=== PATIENT | male | born 1960 | race Caucasian/White ===

== ENCOUNTER → 2016-11-21 | Outpatient (CLI) | payer MEDICARE, MEDICAID | LOC: GMAB 14:42 | PROVIDERS: ATTEND Family Medicine | DX: I10 Essential (primary) hypertension (principal); Z12.5 Encounter for screening for malignant neoplasm of prostate | CPT/HCPCS: 84443; G0103 ==

== ENCOUNTER → 2016-12-20 | Outpatient (CLI) | payer MEDICARE, MEDICAID ==
--- NOTE | 2016-12-20 10:03 | MRI ---
EXAM DESCRIPTION: MR LUMBAR SPINE WITHOUT IV CONTRAST CLINICAL HISTORY: LUMBAR RADICULOPATHY low back and right leg pain post a fall, multiple spine surgeries COMPARISON: 25 April 2016. TECHNIQUE: Multi plantar multi sequence non contrast imaging. FINDINGS: Prior pedicle screw and interbody fusion is observed at the L5-S1 level. Exam reveals an old compression fracture the L1 vertebral body. No extra spinous abnormality is detected. L1-2: The disc is desiccated. A central 1.6 mm disc bulge is observed. No neural foraminal disease is noted. L2-3: Unremarkable. L3-4: Unremarkable. L4-5: The disc is desiccated. A left-sided 4.7 mm disc protrusion is detected. No neural foraminal disease of significance is detected. L5-S1: Pedicle screw and interbody fusion are observed at this level. No evidence of loosening or infection is observed. Exam does reveal some medial placement of the right pedicle screw. This remains unchanged from the prior exam. IMPRESSION: 1. An old compression injury of L1 is observed. 2. A 4.7 mm left-sided disk protrusion is detected at the L4-5 level. 3. Pedicle screw and interbody fusion is observed at the L5-S1 level without evidence of loosening or infection. There is medial placement of the right-sided pedicle screw Electronically signed by: Moiz Jane MD 12/20/2016 10:01
== END | disposition home or self-care (01) ==
LOC: MRI 07:32
PROVIDERS: ATTEND Family Medicine
DX: E11.9 Type 2 diabetes mellitus without complications (principal); M54.16 Radiculopathy, lumbar region

== ENCOUNTER 2017-03-17 07:48 | Emergency (ER) | payer MEDICARE, MEDICAID ==
--- NOTE | 2017-03-17 08:35 | ED.PDOC ---
History of Present Illness - General Chief Complaint: ENT Problem Stated Complaint: sinus infection Time Seen by Provider: 03/17/17 07:56 Source: patient, RN notes reviewed, Vital Signs reviewed Exam Limitations: no limitations - History of Present Illness Initial Comments: Patient reports sinus pressure and congestion for 8-10 days that is not getting better with OTC sinus medications. No fever or chills. + nasal drainage. No cough or sore throat. Timing/Duration: gradual, other - 8-10 days Severity: moderate EENT Location: nose, other - sinus Prearrival Treatment: over the counter meds - without improvement Improving Factors: nothing Worsening Factors: nothing Associated Symptoms: facial pain/swelling, nasal congestion/drainage, sinus infection Allergies/Adverse Reactions: Allergies NO KNOWN ALLERGY Allergy (Verified 03/17/17 08:31) Home Medications: Ambulatory Orders Metformin HCl 1,000 mg PO BID 03/25/14 Oxcarbazepine [Trileptal] 600 mg PO BID 03/25/14 Primidone 500 mg PO BID 03/25/14 Risperidone 1 mg PO BID 03/25/14 ALPRAZolam [Xanax] 0.12 mg PO BEDTIME 05/14/14 Duloxetine HCl 60 mg PO DAILY 05/14/14 Lisinopril/Hydrochlorothi 20-12.5 mg 20 mg PO DAILY 05/14/14 Ropinirole 1 mg PO BEDTIME PRN 05/14/14 Prednisone 20 mg PO DAILY #30 tab 05/16/14 amLODIPine BESYLATE [Norvasc] 10 mg PO DAILY #30 tab 05/16/14 cloNAZepam [Klonopin] 1 mg PO BEDTIME #15 tab 05/16/14 Acetaminophen W/ Codeine [Tylenol W/ CODEINE #3] 1 ea PO Q6H #30 08/22/15 Cyclobenzaprine HCl [Flexeril] 10 mg PO Q8H #30 tab 08/22/15 predniSONE [Prednisone] 20 mg PO QAM #5 tab 08/22/15 Acetaminophen W/ Codeine [Tylenol W/ CODEINE #3] 1 - 2 ea PO Q4H PRN #20 Ibuprofen [Motrin Tab] 600 mg PO TID PRN #15 tab 02/24/16 Acetaminophen W/ Codeine [Tylenol W/ CODEINE #3] 1 ea PO Q6H PRN #20 05/13/16 Review of Systems - Review of Systems Constitutional: States: no symptoms reported. Denies: chills, fever, malaise, weakness EENTM: States: nose congestion, other - Sinus pain/pressure Respiratory: States: no symptoms reported Cardiology: States: no symptoms reported Gastrointestinal/Abdominal: States: no symptoms reported Musculoskeletal: States: no symptoms reported Skin: States: no symptoms reported All other Systems: No Change from Baseline Past Medical History (General) - Patient Medical History Hx Seizures: Yes Hx Stroke: No Hx Dementia: No Hx Asthma: No Hx of COPD: No Hx Cardiac Disorders: No Hx Congestive Heart Failure: No Hx Pacemaker: No Hx Hypertension: Yes Hx Thyroid Disease: No Hx Diabetes: Yes Hx Gastroesophageal Reflux: No Hx Renal Disease: No Hx Cancer: No Hx of HIV: No Hx Hepatitis C: No Hx MRSA: No - Vaccination History Hx Tetanus, Diphtheria Vaccination: Yes Hx Influenza Vaccination: Yes Hx Pneumococcal Vaccination: Yes Immunizations Up to Date: Yes - Social History Hx Tobacco Use: Yes Hx Chewing Tobacco Use: No Hx Alcohol Use: Yes Hx Substance Use: No Hx Substance Use Treatment: No Hx Depression: No Feels Threatened In Home Enviroment: No Feels Threatened In a Relationship: No Hx Physical Abuse: No Hx Emotional Abuse: No Hx Suspected Abuse: No - Female History Patient is a Female of Child Bearing Age (10 -59 yrs old): No Patient : No Family Medical History - Family History Father Family History: Unknown Living Status: Hx Family Asthma: No Hx Family Congestive Heart Failure: No Hx Family Hypertension: No Hx Family Stroke: No Hx Family Diabetes: No Hx Family Cancer: No Hx Family;Other: alch hx Physical Exam - Physical Exam General Appearance: Alert, Comfortable, No apparent distress, Unkempt, Well Developed, Well Hydrated, Well Nourished Eye Exam: bilateral normal Ear Exam: bilateral ear: auricle normal, canal normal, TM normal Nasal Exam: discharge, sinus tenderness Throat Exam: normal mouth inspection, pharynx normal, other - dentures Neck: non-tender, full range of motion, supple, normal inspection Cardiovascular/Respiratory: regular rate, rhythm, no M/R/G, normal breath sounds , no respiratory distress Neurologic: alert, normal mood/affect, oriented x 3 Skin Exam: normal color, warm/dry Progress - Progress Progress: 03/17/17 08:37 Patient requests antibiotic shot due to not being able to afford Rx. Will give Solumedrol and Rocephin Departure - Departure Clinical Impression: Acute maxillary sinusitis Qualifiers: Recurrence: not specified Qualified Code(s): J01.00 - Acute maxillary sinusitis , unspecified Time of Disposition: 08:38 Disposition: Discharge to Home or Self Care Condition: Good Departure Forms: ED Discharge - Pt. Copy, Patient Portal Self Enrollment Instructions: DI for Sinusitis Diet: resume usual diet Activity: increase activity as tolerated Referrals: Fatmata Umaña DO [Primary Care Provider] - 1-2 Weeks Home Medications: Ambulatory Orders Metformin HCl 1,000 mg PO BID 03/25/14 Oxcarbazepine [Trileptal] 600 mg PO BID 03/25/14 Primidone 500 mg PO BID 03/25/14 Risperidone 1 mg PO BID 03/25/14 ALPRAZolam [Xanax] 0.12 mg PO BEDTIME 05/14/14 Duloxetine HCl 60 mg PO DAILY 05/14/14 Lisinopril/Hydrochlorothi 20-12.5 mg 20 mg PO DAILY 05/14/14 Ropinirole 1 mg PO BEDTIME PRN 05/14/14 Prednisone 20 mg PO DAILY #30 tab 05/16/14 amLODIPine BESYLATE [Norvasc] 10 mg PO DAILY #30 tab 05/16/14 cloNAZepam [Klonopin] 1 mg PO BEDTIME #15 tab 05/16/14 Acetaminophen W/ Codeine [Tylenol W/ CODEINE #3] 1 ea PO Q6H #30 08/22/15 Cyclobenzaprine HCl [Flexeril] 10 mg PO Q8H #30 tab 08/22/15 predniSONE [Prednisone] 20 mg PO QAM #5 tab 08/22/15 Acetaminophen W/ Codeine [Tylenol W/ CODEINE #3] 1 - 2 ea PO Q4H PRN #20 Ibuprofen [Motrin Tab] 600 mg PO TID PRN #15 tab 02/24/16 Acetaminophen W/ Codeine [Tylenol W/ CODEINE #3] 1 ea PO Q6H PRN #20 05/13/16
[2017-03-17] MEDS: cefTRIAXone SODIUM 1 GM VIAL IM ONE (08:38)
[2017-03-17] MEDS ORDERED: LIDOCAINE 1% 10 ML VIAL INJ ONE (08:38)
[2017-03-17] MEDS: methylPREDNISolone SODIUM SUC 125 MG/2 ML VIAL IM ONE (08:39)
[2017-03-17 08:55] VITALS: BP 143/85; TEMP 98.2; O2SAT 90
== END 2017-03-17 08:59 | disposition home or self-care (01) ==
LOC: ER 07:48
DX: J01.00 Acute maxillary sinusitis, unspecified (principal); I10 Essential (primary) hypertension; E11.9 Type 2 diabetes mellitus without complications; Z79.899 Other long term (current) drug therapy; Z87.891 Personal history of nicotine dependence
CPT/HCPCS: J0696; J2930

== ENCOUNTER 2017-03-20 18:15 | Emergency (ER) | payer MEDICARE, MEDICAID ==
--- NOTE | 2017-03-20 18:50 | RAD ---
PROCEDURE: XR CHEST 1 VIEW HISTORY: sob COMPARISON: 02/24/2016 TECHNIQUE: Single projection of the chest was done. FINDINGS: The lung mcclure are well inflated . There are no discrete airspace infiltrates, pneumothoraces or pleural effusions. The pulmonary vascularity is normal. The cardiomediastinal silhouette is unremarkable for patient's age and sex. IMPRESSION: There is no acute pleural-parenchymal process seen in the imaged lung mcclure. Location of Interpretation: [facility] Electronically signed by: Zhen Ellsworth MD 03/20/2017 6:50 PM CDT
--- NOTE | 2017-03-20 19:04 | ED.PDOC ---
History of Present Illness - General Chief Complaint: Respiratory Problem Stated Complaint: trouble breathing Time Seen by Provider: 03/20/17 18:21 Source: patient, RN notes reviewed, Vital Signs reviewed, EMS notes reviewed Exam Limitations: no limitations - History of Present Illness Initial Comments: Mik Pérez 56 y/o male with copd,hbp,dm2 stated that he had cough with worsening sob for the last 2 weeks,no chest pains, no exertional dyspnea,no fever,no chills.He continue to smoke 1 1/2 ppd.He stated was seen here last week given steroid pill tapering dose but not any better. Timing/Duration: getting worse, other - 2 weeks Severity: moderate Possible Cause: chronic episodes Improving Factors: nothing Associated Symptoms: cough - productive, nasal congestion Allergies/Adverse Reactions: Allergies NO KNOWN ALLERGY Allergy (Verified 03/17/17 08:31) Home Medications: Ambulatory Orders Metformin HCl 1,000 mg PO BID 03/25/14 Oxcarbazepine [Trileptal] 600 mg PO BID 03/25/14 Primidone 500 mg PO BID 03/25/14 Risperidone 1 mg PO BID 03/25/14 ALPRAZolam [Xanax] 0.12 mg PO BEDTIME 05/14/14 Duloxetine HCl 60 mg PO DAILY 05/14/14 Lisinopril/Hydrochlorothi 20-12.5 mg 20 mg PO DAILY 05/14/14 Ropinirole 1 mg PO BEDTIME PRN 05/14/14 Prednisone 20 mg PO DAILY #30 tab 05/16/14 amLODIPine BESYLATE [Norvasc] 10 mg PO DAILY #30 tab 05/16/14 cloNAZepam [Klonopin] 1 mg PO BEDTIME #15 tab 05/16/14 Acetaminophen W/ Codeine [Tylenol W/ CODEINE #3] 1 ea PO Q6H #30 08/22/15 Cyclobenzaprine HCl [Flexeril] 10 mg PO Q8H #30 tab 08/22/15 predniSONE [Prednisone] 20 mg PO QAM #5 tab 08/22/15 Acetaminophen W/ Codeine [Tylenol W/ CODEINE #3] 1 - 2 ea PO Q4H PRN #20 Ibuprofen [Motrin Tab] 600 mg PO TID PRN #15 tab 02/24/16 Acetaminophen W/ Codeine [Tylenol W/ CODEINE #3] 1 ea PO Q6H PRN #20 05/13/16 Amoxicillin [Amoxil] 1,000 mg PO BID #30 cap 03/20/17 Oxymetazoline HCl [Afrin 12 Hour] 0.05 % NA BID PRN #1 spr 03/20/17 Review of Systems - Review of Systems Constitutional: States: no symptoms reported EENTM: States: no symptoms reported Respiratory: States: see HPI, cough, short of breath Cardiology: States: no symptoms reported Gastrointestinal/Abdominal: States: no symptoms reported Genitourinary: States: no symptoms reported Musculoskeletal: States: other - right leg pain on exertion Skin: States: no symptoms reported Neurological: States: no symptoms reported Endocrine: States: no symptoms reported Hematologic/Lymphatic: States: no symptoms reported Past Medical History (General) - Patient Medical History Hx Seizures: Yes Hx Stroke: No Hx Dementia: No Hx Asthma: No Hx of COPD: No Hx Cardiac Disorders: No Hx Congestive Heart Failure: No Hx Pacemaker: No Hx Hypertension: Yes Hx Thyroid Disease: No Hx Diabetes: Yes Hx Gastroesophageal Reflux: No Hx Renal Disease: No Hx Cancer: No Hx of HIV: No Hx Hepatitis C: No Hx MRSA: No Hx Other PMH: Yes - bipolar disorder-[facility]es [facility] Surgical History: other - ventral hernia repair,knee,back - Vaccination History Hx Tetanus, Diphtheria Vaccination: Yes Hx Influenza Vaccination: No Hx Pneumococcal Vaccination: No - Social History Hx Tobacco Use: Yes Years Tobacco Use: 44 Cigarettes Packs Per Day: 30 Hx Chewing Tobacco Use: No Hx Alcohol Use: Yes Hx Substance Use: No Hx Substance Use Treatment: No Hx Depression: No Hx Physical Abuse: No Hx Emotional Abuse: No Hx Suspected Abuse: No - Activities of Daily Living Grooming Ability: Independent Eating (Feeding) Ability: Independent Toileting Ability: Independent - Female History Patient : No Family Medical History - Family History Father Family History: Unknown Living Status: Hx Family Asthma: No Hx Family Congestive Heart Failure: No Hx Family Hypertension: No Hx Family Stroke: No Hx Family Diabetes: No Hx Family Cancer: Yes - melanoma -dad Hx Family;Other: alch hx Physical Exam - Physical Exam General Appearance: Alert, Anxious, No apparent distress ENT Exam: normal ENT inspection, hearing grossly normal, TMs normal, pharynx normal Neck: non-tender, full range of motion, supple, normal inspection Respiratory: chest non-tender, no respiratory distress, rhonchi Cardiovascular/Chest: normal peripheral pulses, regular rate, rhythm, no edema, no gallop, no JVD, no murmur Gastrointestinal/Abdominal: normal bowel sounds, non tender, soft, no organomegaly, no pulsatile mass Extremity: normal range of motion, non-tender Neurologic: no motor/sensory deficits, alert Skin Exam: normal color, warm/dry Lymphatic: no adenopathy Progress - Results/Orders Results/Orders: 03/20/17 18:56 SVN/[facility] .ONCE 03/21/17 09:00 [facility] Daily Laboratory Results WBC 12.0 K/mm3 (4.8-10.8) H 03/20/17 18:40 RBC 4.62 M/mm3 (4.70-6.10) L 03/20/17 18:40 Hgb 13.4 gm/dL (14.0-18.0) L 03/20/17 18:40 Hct 39.9 % (42.0-52.0) L 03/20/17 18:40 MCV 86.4 fl (80.0-94.0) 03/20/17 18:40 MCH 29.0 pg (27.0-31.0) 03/20/17 18:40 MCHC 33.7 g/dL (33.0-37.0) 03/20/17 18:40 RDW 13.3 % (11.5-14.5) 03/20/17 18:40 Plt Count 301 K/mm3 (130-400) 03/20/17 18:40 MPV 7.2 fl (7.40-10.4) L 03/20/17 18:40 Absolute Neuts (auto) 8.10 K/uL (1.8-6.8) H 03/20/17 18:40 Absolute Lymphs (auto) 2.60 K/uL (1.0-3.4) 03/20/17 18:40 Absolute Monos (auto) 0.90 K/uL (0.2-0.8) H 03/20/17 18:40 Absolute Eos (auto) 0.30 K/uL (0.0-0.4) 03/20/17 18:40 Absolute Basos (auto) 0.20 K/uL (0.0-0.1) H 03/20/17 18:40 Neutrophils % 67.1 % (42.0-78.0) 03/20/17 18:40 Lymphocytes % 21.7 % (20.0-50.0) 03/20/17 18:40 Monocytes % 7.4 % (2.0-9.0) 03/20/17 18:40 Eosinophils % 2.5 % (1.0-5.0) 03/20/17 18:40 Basophils % 1.3 % (0.0-2.0) 03/20/17 18:40 D-Dimer, Quantitative < 200 ng/mL (0-230) 03/20/17 18:40 Sodium 122 mmol/L (135-145) L 03/20/17 18:40 Potassium 4.3 mmol/L (3.6-5.0) 03/20/17 18:40 Chloride 88 mmol/L (101-111) L 03/20/17 18:40 Carbon Dioxide 27 mmol/L (21-31) 03/20/17 18:40 Anion Gap 11.3 (12-18) L 03/20/17 18:40 BUN 12 mg/dL (7-18) 03/20/17 18:40 Creatinine 0.84 mg/dL (0.6-1.3) 03/20/17 18:40 BUN/Creatinine Ratio 14.3 (10-20) 03/20/17 18:40 Random Glucose 90 mg/dL (70-105) 03/20/17 18:40 Serum Osmolality 245.2 mOsm/L (275-295) L* 03/20/17 18:40 Calcium 8.9 mg/dL (8.4-10.2) 03/20/17 18:40 Total Bilirubin 0.4 mg/dL (0.2-1.0) 03/20/17 18:40 AST 24 IU/L (10-42) 03/20/17 18:40 ALT 19 IU/L (10-60) 03/20/17 18:40 Alkaline Phosphatase 75 IU/L (42-121) 03/20/17 18:40 Creatine Kinase 275 IU/L (38-174) H* 03/20/17 18:40 CK-MB (CK-2) 9.7 ng/mL (0.0-4.4) H* 03/20/17 18:40 CK-MB (CK-2) % 3.53 % (0.0-3.5) H 03/20/17 18:40 Troponin I < 0.02 ng/mL (0.01-0.05) 03/20/17 18:40 B-Natriuretic Peptide 10.1 pg/ml (0-100) 03/20/17 18:40 Serum Total Protein 6.9 gm/dL (6.4-8.2) 03/20/17 18:40 Albumin 4.0 g/dl (3.2-5.5) 03/20/17 18:40 Globulin 2.9 gm/dL (2.3-3.5) 03/20/17 18:40 Albumin/Globulin Ratio 1.4 (1.1-1.9) 03/20/17 18:40 Ethyl Alcohol 49.40 mg/dL (0-79) 03/20/17 18:40 Vital Signs - 8 hr 03/20/17 03/20/17 03/20/17 18:20 18:25 19:15 Temperature 97.9 F Pulse Rate 81 Pulse Rate [ 72 Left Brachial] Respiratory 20 20 20 Rate Blood Pressure 163/97 [Left Arm] O2 Sat by Pulse 97 97 Oximetry Counseled regarding his chronic smoking as well as alcohol that it will complicate his underlying medical problem stated he tried to quit in the past but could not withstand withdrawal symptoms but he is going to try again.I told him well give discharge instruction for nicotine and alcohol use chronically.Talked to him for about 3 minutes 2221 h called up hospitalist Susanne Kessler ANP for admit but recommended transfer to [facility] patient was informed about it declined to be transferred prefers to call up his md in am clinic in [place], [place] several family members present. - EKG/XRAY/CT EKG: Sinus, RBBB Comments: heart rate-82 XRAY: chest - no acute abnormalities as per radiologist Departure - Departure Clinical Impression: Hyponatremia with decreased serum osmolality, Bronchitis, chronic obstructive, with exacerbation, Alcohol abuse, daily use Nicotine dependence Qualifiers: Nicotine product type: cigarettes Substance use status: uncomplicated Qualified Code(s): F17.210 - Nicotine dependence, cigarettes, uncomplicated Time of Disposition: 22:23 Disposition: Discharge to Home or Self Care Condition: Fair Departure Forms: ED Discharge - Pt. Copy, Patient Portal Self Enrollment Instructions: Growing Up Sober: A Challenging Journey for Adult Children of Alcoholics, Smoking Cessation for Older Adults: It's Not Too Late!, Tips to Help You Stop Smoking, Alcohol Abuse and Alcoholism, Nicotine Addiction, Diabetes and Alcohol: Caution When Mixing, Reasons to Quit Smoking, How to Quit Smoking Diet: other - Tomato juice one cup am and pm Referrals: Fatmata Umaña DO [Primary Care Provider] - 1-2 Weeks Prescriptions: Amoxicillin [Amoxil] 1,000 mg PO BID #30 cap Oxymetazoline HCl [Afrin 12 Hour] 0.05 % NA BID PRN #1 spr PRN Reason: Nasal Congestion Home Medications: Ambulatory Orders Metformin HCl 1,000 mg PO BID 03/25/14 Oxcarbazepine [Trileptal] 600 mg PO BID 03/25/14 Primidone 500 mg PO BID 03/25/14 Risperidone 1 mg PO BID 03/25/14 ALPRAZolam [Xanax] 0.12 mg PO BEDTIME 05/14/14 Duloxetine HCl 60 mg PO DAILY 05/14/14 Lisinopril/Hydrochlorothi 20-12.5 mg 20 mg PO DAILY 05/14/14 Ropinirole 1 mg PO BEDTIME PRN 05/14/14 Prednisone 20 mg PO DAILY #30 tab 05/16/14 amLODIPine BESYLATE [Norvasc] 10 mg PO DAILY #30 tab 05/16/14 cloNAZepam [Klonopin] 1 mg PO BEDTIME #15 tab 05/16/14 Acetaminophen W/ Codeine [Tylenol W/ CODEINE #3] 1 ea PO Q6H #30 08/22/15 Cyclobenzaprine HCl [Flexeril] 10 mg PO Q8H #30 tab 08/22/15 predniSONE [Prednisone] 20 mg PO QAM #5 tab 08/22/15 Acetaminophen W/ Codeine [Tylenol W/ CODEINE #3] 1 - 2 ea PO Q4H PRN #20 Ibuprofen [Motrin Tab] 600 mg PO TID PRN #15 tab 02/24/16 Acetaminophen W/ Codeine [Tylenol W/ CODEINE #3] 1 ea PO Q6H PRN #20 05/13/16 Amoxicillin [Amoxil] 1,000 mg PO BID #30 cap 03/20/17 Oxymetazoline HCl [Afrin 12 Hour] 0.05 % NA BID PRN #1 spr 03/20/17 Additional Instructions: CONTINUE WITH ALBUTEROL INHALER 2 PUFFS EVERY 6 HOURS FOR WHEEZING; and prednisone as directed return to emergency room as needed
[2017-03-20] MEDS: IPRATROPIUM/ALBUTEROL 3 ML VIAL NEB ONE ×2 (19:15→20:11)
[2017-03-20] MEDS: methylPREDNISolone SODIUM SUC 125 MG/2 ML VIAL IV ONE (19:18)
[2017-03-20] MEDS: AMOXICILLIN 500 MG CAP PO ONE (22:36)
[2017-03-20] MEDS: diphenhydrAMINE HCL 25 MG CAP PO ONE (22:37)
[2017-03-20] MEDS: BENZONATATE PERLES 100 MG CAP PO ONE (22:37)
[2017-03-20] MEDS: HYDROcodone 7.5MG/APAP 325MG 1 EA TAB PO ONE ×2 (22:53→23:09)
[2017-03-20 23:11] VITALS: BP 174/105; TEMP 97.8
[2017-03-20 23:13] VITALS: O2SAT 97
== END 2017-03-20 23:13 | disposition home or self-care (01) ==
LOC: ER 18:15
DX: J44.1 Chronic obstructive pulmonary disease with (acute) exacerbation (principal); E87.1 Hypo-osmolality and hyponatremia; F10.10 Alcohol abuse, uncomplicated; Y90.2 Blood alcohol level of 40-59 mg/100 ml; F17.210 Nicotine dependence, cigarettes, uncomplicated; F31.9 Bipolar disorder, unspecified; E11.9 Type 2 diabetes mellitus without complications; I10 Essential (primary) hypertension; Z79.899 Other long term (current) drug therapy
CPT/HCPCS: 36415; 71010; 80053; 80320; 82550; 82553; 83880; 84484; 85025; 85379; 93005; 94640; J7620; Q0163

== ENCOUNTER 2017-04-07 21:16 | Inpatient (IN) | payer MEDICARE ==
[2017-04-07] MEDS ORDERED: IPRATROPIUM/ALBUTEROL 3 ML VIAL NEB ONE (21:25)
[2017-04-07] MEDS ORDERED: MULTIPLE VITAMIN INJ 10 ML, THIAMINE HCL INJ 100 MG in SODIUM CHLORIDE 0.9% 1000ML 1,00... IVS ONE (21:27)
[2017-04-07] MEDS ORDERED: MULTIPLE VITAMIN 10 ML VIAL ONE (21:34)
[2017-04-07] MEDS ORDERED: SODIUM CHLORIDE 0.9% 1000ML 1,000 ML ONE (21:34)
[2017-04-07] MEDS ORDERED: THIAMINE HCL INJ 100 MG/ML VIAL ONE (21:34)
[2017-04-07] MEDS ORDERED: cefTRIAXone SODIUM 1 GM in SODIUM CHL 0.9% 50ML MIN-BAG+ 50 ML IVPB ONE (22:33)
--- NOTE | 2017-04-07 22:44 | RAD ---
EXAM: Chest,2 Views CLINICAL INDICATION: 56-year-old male with shortness of breath. TECHNIQUE: Two-view, PA and lateral projections of the chest were obtained. COMPARISON: 01/18/2017. FINDINGS: Stable cardiac and mediastinal silhouette. Heart size is normal. Hazy opacification of the LEFT lower lobe raises the concern for consolidation. No pneumothorax or pleural effusions. The visualized bones are within normal limits. IMPRESSION: Hazy opacification of the LEFT lower lobe concerning for consolidation. Please correlate with patient clinical findings and follow-up for resolution. Electronically signed by: Marian Zayas MD 04/07/2017 10:44 PM CDT Workstation: [id number]
[2017-04-07] MEDS ORDERED: cefTRIAXone SODIUM 1 GM VIAL ONE (23:00)
[2017-04-07] MEDS ORDERED: SODIUM CHL 0.9% 50ML MIN-BAG+ 50 ML IVPB ONE (23:01)
[2017-04-07] MEDS ORDERED: SODIUM CHLORIDE 0.9% 500ML 500 ML IVS ONE (23:05)
[2017-04-07] MEDS ORDERED: SODIUM CHLORIDE 0.9% 500ML 500 ML ONE (23:07)
--- NOTE | 2017-04-07 23:25 | ED.PDOC ---
History of Present Illness - General Chief Complaint: Headache Stated Complaint: headache, neck pain, difficulty breathing Time Seen by Provider: 04/07/17 21:25 Source: patient Exam Limitations: no limitations - History of Present Illness Initial Comments: The patient is a 56-year-old male initially brought in by EMS due to headache and confusion. He was found to be hypoxic at 84% on room air. The patient apparently has had a progressively productive cough and shortness of breath for the last 2 days with associated weakness and body aches. The patient felt bad today so he took some extra pain medications and lay down outside on his porch on the hardwood deck and fell asleep. He apparently laid on the hard surface exposed to the heat for approximately 6 hours. The patient was mildly hypotensive upon arrival. He was tachycardic. As stated above, he did have a significant headache and was mildly confused. He has not had any chest pain. No palpitations. He does feel weak.temperature was also around 100.2 upon arrival. Timing/Duration: unsure Severity: severe Improving Factors: medication Worsening Factors: movement Associated Symptoms: cough, fever/chills, headaches, loss of appetite, malaise, shortness of breath, weakness Allergies/Adverse Reactions: Allergies NO KNOWN ALLERGY Allergy (Verified 04/07/17 23:19) Home Medications: Ambulatory Orders Metformin HCl 1,000 mg PO BID 03/25/14 Oxcarbazepine [Trileptal] 600 mg PO BID 03/25/14 Primidone 500 mg PO BID 03/25/14 Risperidone 1 mg PO BID 03/25/14 ALPRAZolam [Xanax] 0.12 mg PO BEDTIME 05/14/14 Duloxetine HCl 60 mg PO DAILY 05/14/14 Lisinopril/Hydrochlorothi 20-12.5 mg 20 mg PO DAILY 05/14/14 Ropinirole 1 mg PO BEDTIME PRN 05/14/14 Prednisone 20 mg PO DAILY #30 tab 05/16/14 amLODIPine BESYLATE [Norvasc] 10 mg PO DAILY #30 tab 05/16/14 cloNAZepam [Klonopin] 1 mg PO BEDTIME #15 tab 05/16/14 Acetaminophen W/ Codeine [Tylenol W/ CODEINE #3] 1 ea PO Q6H #30 08/22/15 Cyclobenzaprine HCl [Flexeril] 10 mg PO Q8H #30 tab 08/22/15 predniSONE [Prednisone] 20 mg PO QAM #5 tab 08/22/15 Acetaminophen W/ Codeine [Tylenol W/ CODEINE #3] 1 - 2 ea PO Q4H PRN #20 Ibuprofen [Motrin Tab] 600 mg PO TID PRN #15 tab 02/24/16 Acetaminophen W/ Codeine [Tylenol W/ CODEINE #3] 1 ea PO Q6H PRN #20 05/13/16 Amoxicillin [Amoxil] 1,000 mg PO BID #30 cap 03/20/17 Oxymetazoline HCl [Afrin 12 Hour] 0.05 % NA BID PRN #1 spr 03/20/17 Review of Systems - Review of Systems Constitutional: States: fever, malaise, weakness EENTM: States: no symptoms reported Respiratory: States: cough, short of breath Cardiology: States: no symptoms reported Gastrointestinal/Abdominal: States: other - mild anorexia Genitourinary: States: no symptoms reported Musculoskeletal: States: neck pain, other - eneralized body aches Skin: States: no symptoms reported Neurological: States: headache, tremors - a chronic problem, weakness, other - ild confusion Endocrine: States: increased thirst All other Systems: No Change from Baseline Past Medical History (General) - Patient Medical History Hx Seizures: Yes Hx Stroke: No Hx Dementia: No Hx Asthma: No Hx of COPD: No Hx Cardiac Disorders: No Hx Congestive Heart Failure: No Hx Pacemaker: No Hx Hypertension: Yes Hx Thyroid Disease: No Hx Diabetes: Yes Hx Gastroesophageal Reflux: No Hx Renal Disease: No Hx Cancer: No Hx of HIV: No Hx Hepatitis C: No Hx MRSA: No Surgical History: noncontributory - Vaccination History Hx Tetanus, Diphtheria Vaccination: No Hx Influenza Vaccination: Yes Hx Pneumococcal Vaccination: Yes Immunizations Up to Date: No - Social History Hx Tobacco Use: Yes Hx Chewing Tobacco Use: No Hx Alcohol Use: Yes Hx Substance Use: No Hx Substance Use Treatment: No Hx Depression: No Feels Threatened In Home Enviroment: No Feels Threatened In a Relationship: No Hx Physical Abuse: No Hx Emotional Abuse: No Hx Suspected Abuse: No - Female History Patient : No Family Medical History - Family History Father Family History: Unknown Living Status: Hx Family Asthma: No Hx Family Congestive Heart Failure: No Hx Family Hypertension: No Hx Family Stroke: No Hx Family Diabetes: No Hx Family Cancer: Yes - melanoma -dad Hx Family;Other: alch hx Physical Exam - Physical Exam General Appearance: Alert, Frail, Ill Appearing, Unkempt, Other - drowsy Eye Exam: bilateral normal - with the exception that bilateral pupilsare 2 mm and fixed Ears, Nose, Throat: hearing grossly normal, other - mucous membranes are dry. Poor dentition Neck: non-tender, full range of motion, supple Respiratory: chest non-tender, no respiratory distress, no accessory muscle use , rales - to the left lower lobe, rhonchi - scattered Cardiovascular/Chest: normal peripheral pulses, no edema, tachycardia Peripheral Pulses: radial,right: 2+, radial,left: 2+, dorsalis pedis,right: 2+, dorsalis pedis,left: 2+ Gastrointestinal/Abdominal: non tender, soft Rectal Exam: deferred Back Exam: normal inspection, no CVA tenderness, no vertebral tenderness Extremity: normal range of motion, no pedal edema, normal capillary refill, other - the patient has diffuse discomfort to palp throughout his lower extremities. I see no bruising Neurologic: alert - leepy, oriented x 3 Skin Exam: pallor Comments: Vital Signs - 24 hr 04/07/17 04/07/17 04/07/17 21:20 21:26 22:00 Temperature 100.1 F H Pulse Rate 102 H Pulse Rate [ 116 H 116 H monitor] Respiratory 20 20 20 Rate Blood Pressure 97/58 [Left Arm] O2 Sat by Pulse 93 L 92 L Oximetry Progress - Progress Progress: 04/07/17 23:29 the patient is a 56-year-old male brought in with significant dehydration, acute renal failure and rhabdomyolysis on top of what appears to be a new left lower lobe pneumonia with associated hypoxia and leukocytosis. The patient's initial headache, confusion, hypotension and tachycardia appeared to be resolving nicely after his first banana bag. Hypoxia persists. Blood cultures have been performed. He is receiving a dose of IV Rocephin. Troponin leak is appropriate given the background of rhabdomyolysis and acute renal failure, without associated chest pain or EKG changes. Muscle enzymes will increase further before they start to decline, given the timeframe of the events. The DuoNeb treatment did also seem to help. Admit for management of the above processes. The patient denies alcohol intake today. There is apparently a history of withdrawal in his past. - Results/Orders Results/Orders: Laboratory Tests 04/07/17 04/07/17 04/07/17 21:45 21:45 21:45 WBC 16.7 H RBC 4.84 Hgb 14.0 Hct 41.9 L MCV 86.6 MCH 28.9 MCHC 33.4 RDW 13.8 Plt Count 264 MPV 7.2 L Absolute Neuts (auto) 14.70 H Absolute Lymphs (auto) 0.80 L Absolute Monos (auto) 1.10 H Absolute Eos (auto) 0.10 Absolute Basos (auto) 0.10 Neutrophils % 87.8 H Lymphocytes % 4.7 L Monocytes % 6.7 Eosinophils % 0.4 L Basophils % 0.4 PT 11.4 INR 1.010 PTT (SP) 31.6 Sodium 132 L Potassium 4.5 Chloride 97 L Carbon Dioxide 25 Anion Gap 14.5 BUN 40 H Creatinine 2.70 H BUN/Creatinine Ratio 14.8 Random Glucose 182 H Serum Osmolality 278.9 Lactic Acid Calcium 9.1 Magnesium 1.7 L Total Bilirubin 0.5 AST 47 H ALT 30 Alkaline Phosphatase 81 Creatine Kinase 1263 H* CK-MB (CK-2) 31.2 H* CK-MB (CK-2) % 2.47 Troponin I 1.17 H* B-Natriuretic Peptide 95.1 Serum Total Protein 7.6 Albumin 4.1 Globulin 3.5 Albumin/Globulin Ratio 1.2 Amylase 71 Lipase 20 L Ethyl Alcohol 04/07/17 04/07/17 21:45 21:45 WBC RBC Hgb Hct MCV MCH MCHC RDW Plt Count MPV Absolute Neuts (auto) Absolute Lymphs (auto) Absolute Monos (auto) Absolute Eos (auto) Absolute Basos (auto) Neutrophils % Lymphocytes % Monocytes % Eosinophils % Basophils % PT INR PTT (SP) Sodium Potassium Chloride Carbon Dioxide Anion Gap BUN Creatinine BUN/Creatinine Ratio Random Glucose Serum Osmolality Lactic Acid 1.6 Calcium Magnesium Total Bilirubin AST ALT Alkaline Phosphatase Creatine Kinase CK-MB (CK-2) CK-MB (CK-2) % Troponin I B-Natriuretic Peptide Serum Total Protein Albumin Globulin Albumin/Globulin Ratio Amylase Lipase Ethyl Alcohol < 5.40 chest x-ray shows a left lower lung infiltrate. EKG shows right bundle branch block. Sinus tachycardia. Normal QT and FL intervals. No acute ST segment changes concerning for ischemia compared with EKG from earlier this month. Departure - Departure Clinical Impression: Delirium, Dehydration Pneumonia Qualifiers: Pneumonia type: due to unspecified organism Laterality: left Lung location: lower lobe of lung Qualified Code(s): J18.9 - Pneumonia, unspecified organism Acute renal failure Qualifiers: Acute renal failure type: unspecified Qualified Code(s): N17.9 - Acute kidney failure, unspecified Rhabdomyolysis Qualifiers: Rhabdomyolysis type: traumatic Encounter type: initial encounter Qualified Code (s): T79.6XXA - Traumatic ischemia of muscle, initial encounter Disposition: Admit Patient Referrals: Fatmata Umaña DO [Primary Care Provider] - 1-2 Weeks Home Medications: Ambulatory Orders Metformin HCl 1,000 mg PO BID 03/25/14 Oxcarbazepine [Trileptal] 600 mg PO BID 03/25/14 Primidone 500 mg PO BID 03/25/14 Risperidone 1 mg PO BID 03/25/14 ALPRAZolam [Xanax] 0.12 mg PO BEDTIME 05/14/14 Duloxetine HCl 60 mg PO DAILY 05/14/14 Lisinopril/Hydrochlorothi 20-12.5 mg 20 mg PO DAILY 05/14/14 Ropinirole 1 mg PO BEDTIME PRN 05/14/14 Prednisone 20 mg PO DAILY #30 tab 05/16/14 amLODIPine BESYLATE [Norvasc] 10 mg PO DAILY #30 tab 05/16/14 cloNAZepam [Klonopin] 1 mg PO BEDTIME #15 tab 05/16/14 Acetaminophen W/ Codeine [Tylenol W/ CODEINE #3] 1 ea PO Q6H #30 08/22/15 Cyclobenzaprine HCl [Flexeril] 10 mg PO Q8H #30 tab 08/22/15 predniSONE [Prednisone] 20 mg PO QAM #5 tab 08/22/15 Acetaminophen W/ Codeine [Tylenol W/ CODEINE #3] 1 - 2 ea PO Q4H PRN #20 Ibuprofen [Motrin Tab] 600 mg PO TID PRN #15 tab 02/24/16 Acetaminophen W/ Codeine [Tylenol W/ CODEINE #3] 1 ea PO Q6H PRN #20 05/13/16 Amoxicillin [Amoxil] 1,000 mg PO BID #30 cap 03/20/17 Oxymetazoline HCl [Afrin 12 Hour] 0.05 % NA BID PRN #1 spr 03/20/17 Decision To Admit - Decistion To Admit Decision to Admit Reason: Medical Nature Decision to Admit Date: 04/07/17 Decision to Admit Time: 23:38
--- NOTE | 2017-04-07 23:37 | HP ---
CHIEF COMPLAINT: Fever. HISTORY OF PRESENT ILLNESS: Mr. Pérez is a 56-year-old, disabled male who presented to the Emergency Room with a two day history of cough, malaise, and a one day history of low grade fevers. He is a poor historian and seems to be a little debilitated and confused tonight. Per the ER records, he felt poorly all day today and fell asleep outdoors, possibly on a hardwood deck. When he awoke around six hours later, he felt sick and called EMS. He was transported to the Emergency Room where he was found to be febrile, dehydrated and in early mild rhabdomyolysis. The patient was worked up and found to have an early right lower lobe pneumonia. I have been called for admission to the hospital. PAST MEDICAL HISTORY: 1. Type 2 diabetes. 2. Lumbar disc disease. 3. Depression. 4. Hypertension. PAST SURGICAL HISTORY: Unknown. CURRENT MEDICATIONS: 1. Metformin 1000 mg b.i.d. 2. Trileptal 600 mg b.i.d. 3. Primidone 500 mg b.i.d. 4. Risperdal 1 mg b.i.d. 5. Xanax 0.25 mg q.h.s. 6. Cymbalta 60 mg q.d. 7. Lisinopril/hydrochlorothiazide 20/12.5 mg q.d. 8. Ropinirole 1 mg q.h.s. 9. Prednisone 20 mg daily. 10. Amlodipine 10 mg daily. 11. Tylenol with codeine q.6h. p.r.n. 12. Flexeril q.8h. 13. Motrin 600 mg t.i.d. ALLERGIES: NO KNOWN DRUG ALLERGIES. FAMILY HISTORY: Noncontributory. SOCIAL HISTORY: The patient smokes at least one pack of cigarettes a day. He rarely drinks alcohol. There is no history of drug abuse. REVIEW OF SYSTEMS: CONSTITUTIONAL: Positive for subjective fevers, but no chills or rigors. HEENT: No sore throat. CARDIOVASCULAR: No chest pains. PULMONARY: Positive for cough, nonproductive. He denies hemoptysis. He denies wheezing. GASTROINTESTINAL: No abdominal pain, nausea, vomiting, diarrhea, melena or hematochezia. GENITOURINARY: No incontinence, dysuria or hematuria. NEUROLOGIC: He has had a headache, but it is mild to moderate in severity at the current time. No dizziness. He does feel generally weak, but has no focal weakness. His mental status appears to be below his perceived baseline. LYMPHATIC: No history of enlarged lymph node or easy bruising. PHYSICAL EXAMINATION: VITAL SIGNS: Temperature 100.1. Pulse 91. Right 20. Pulse oximetry 93% on 2 liters nasal cannula. GENERAL: The patient appears groggy. He is pleasant and interacts adequately with the examiner. HEENT: Mucous membranes are dry. NECK: Supple. No lymphadenopathy. CHEST: Diminished breath sounds in the left base, otherwise clear to auscultation. Specifically, there are no wheezes. CARDIOVASCULAR: Tachycardic, regular rhythm without murmur. ABDOMEN: Soft, nontender, nondistended. EXTREMITIES: No cyanosis, clubbing, or edema. SKIN: No rash. NEUROLOGIC: The patient is awake and somewhat alert, but he does appear a little groggy. I think it is because of the illness. I note that his blood alcohol level is very, very low, so he is not intoxicated. He does not appear to be overdosed on pain medicine either. He has no focal motor or sensory deficit. LABORATORY: White count 16.7. Hematocrit 41, platelet count 264. He does have a leftward shift. Sodium 132, potassium 4.5, chloride 97, carbon dioxide 25, BUN 40, creatinine 2.7, lactic acid 1.6, magnesium 1.7, AST 47, ALT 30, CPK 1,263, CK-MB index 2.47%. Troponin I 1.17. BNP 95. Blood alcohol level less than 5. Chest x-ray reveals a left lower lobe consolidation. ASSESSMENT: 1. Left lower lobe pneumonia. 2. Hypoxemia secondary to #1. 3. Acute rhabdomyolysis, secondary to #1. 4. Acute renal failure, secondary to above. 5. Probable chronic obstructive pulmonary disease without exacerbation. 6. Type 2 diabetes. 7. Chronic low back pain secondary to lumbar disc disease. 8. Depression. PLAN: The patient is quite ill and needs to be put in the hospital for IV fluids. His troponin I is high, but I think it is due to his chronic renal failure. He is in rhabdomyolysis with an elevated CPK with a very low cardiac index on that high CPK. There is no evidence of alcoholism or detox at this time. The patient denies having a history of regular, ongoing alcohol abuse. He needs IV fluids, IV antibiotics, and close observation. We will be watching his mental status very carefully as well. #[id number] [facility]ITALMaurice
[2017-04-08] MEDS ORDERED: SODIUM CHLORIDE 0.9% 1000ML 1,000 ML ONE (01:08)
[2017-04-08] MEDS ORDERED: SODIUM CHLORIDE 0.9% 1000ML 1,000 ML IVS PRN (01:26)
[2017-04-08] MEDS ORDERED: AZITHROMYCIN 250 MG TAB PO SCH ×2 (04:00→21:00)
--- NOTE | 2017-04-08 06:15 | RAD ---
EXAM DESCRIPTION: Chest,2 Views CLINICAL HISTORY: pneumonia COMPARISON: February 05, 2017 FINDINGS: Cardiac silhouette is within normal limits. Abnormal parenchymal opacity in the left lower lung compatible with an infectious process. This is unchanged compared with the prior exam. There is no acute osseous process visualized. IMPRESSION: Abnormal opacity in the left lower lung worrisome for an infectious process. Recommend follow-up to demonstrate resolution and exclude other etiologies. Electronically signed by: Juan Daniel MD 04/08/2017 6:16 AM CDT
[2017-04-08] MEDS ORDERED: levoFLOXacin 500 MG TAB PO ONE (07:06)
[2017-04-08] MEDS ORDERED: AZITHROMYCIN IV 500 MG in SODIUM CHLORIDE 0.9% 250ML 250 ML IVPB SCH ×2 (08:30→21:00)
--- NOTE | 2017-04-08 08:38 | PCM.CORE ---
Physician DVT/VTE - Nurse DVT Assessment & Total Each Risk Factor Represents 1 Point: Age 41-60 Each Risk Factor is 1 Point: Serious Lung disease (pnemonia <1month, COPD, emphysema,etc) DVT Assessment Score: 2 - 2 Moderate Risk Treatments: Early Ambulation *
[2017-04-08] MEDS ORDERED: DEXTROSE 50% 25 GM/50 ML SYG IV PRN (08:48)
[2017-04-08] MEDS ORDERED: GLUCAGON INJ 1 MG VIAL SUBCU PRN (08:48)
[2017-04-08] MEDS ORDERED: SODIUM CHLORIDE 0.9% (FLUSH) 10 ML SYG IV PRN (08:50)
[2017-04-08] MEDS ORDERED: cefTRIAXone SODIUM 1 GM in SODIUM CHL 0.9% 50ML MIN-BAG+ 50 ML IVPB SCH ×2 (09:00→23:00)
[2017-04-08] MEDS ORDERED: IV SET AND CAP CHANGE INJ INJ SCH (09:00)
[2017-04-08] MEDS: ENOXAPARIN SODIUM 40 MG/0.4 ML SYG SUBCU SCH (09:23)
[2017-04-08] MEDS: ALPRAZolam 0.25 MG TAB PO PRN ×2 (09:23→22:42)
--- NOTE | 2017-04-08 09:48 | PN ---
DATE: 04/08/17 SUBJECTIVE: Early this morning, Mr. Pérez got really agitated with having to be at the hospital. Apparently his mental status really cleared up and he became really anxious to get outside and smoke a cigarette and started demanding coffee around 4:30 this morning. The nurses called me a little after 5 AM stating that he was wanting to sign out against medical advice unless he was able to get a cup of coffee, a cigarette, and a pain pill immediately. Fortunately, the nurses were able to calm him down with the understanding that I would be up later in the morning to make rounds. Mr. Pérez graciously awaited my arrival around 6 AM and at that time, he had pulled out his IV, felt like he was doing much, much better than yesterday and was eager to go home. This morning, the patient denies any history of having mary on a hardwood deck for six hours in the sun. He states he had been in bed resting most of the day , so the story is pretty confusing now, but this morning, Mr. Pérez has a very clear mental status and I really think he is much improved from yesterday. After some discussion, the patient has finally agreed to stay in the hospital. He is going to let us restart his IV. When he was threatening to leave against medical advice, I did have the nurses give him one dose of Levaquin orally which would cover his left lower lobe pneumonia for at least 24 more hours so that outpatient treatment could be arranged. At this point, however, we are going to switch him back to IV fluids and IV antibiotics, so that oral Levaquin will be held from this point forward. OBJECTIVE: VITAL SIGNS: T-max 100.1. Pulse as high as 116 overnight, but now down to 98. Blood pressure up to 134/75. Pulse is stable around 20. Pulse oximetry 94% on 3 liters, but he drops to 87% on room air. GENERAL: Awake, alert. He is not in any distress. He remembers me now from when I took care of his before she massed from liver cancer. He has significant improvement in his mental status today. He does not look to be in any acute distress. He is not toxic. HEENT: Oropharynx reveals continued dry mucous membranes. NECK: Supple. CHEST: Slightly diminished in the left lung base without rales or rhonchi. He has no wheezing. CARDIOVASCULAR: Regular rate and rhythm. ABDOMEN: Benign. EXTREMITIES: No edema. LABORATORY: White blood cells down slightly at 13.2, but he still has a leftward shift. Hematocrit has come down with IV fluids to 36.7 which I would consider stable. Sodium is now at 137, chloride 105, potassium remains normal at 4.5. BUN and creatinine are both improved being down to 37 and 1.77, respectively. Glucose this morning is 133. CPK remains stable at 1,366, but his CK-MB index has gone down to 1.96%. Troponin I has improved down to 0.91, as his renal function improves. Chest x-ray continues to show a left basilar infiltrate. ASSESSMENT: 1. Left lower lobe pneumonia with hypoxemia. 2. Rhabdomyolysis. 3. Acute renal failure. 4. Elevated troponin I, no evidence at this time of myocardial infarction. 5. Depression. 6. Anxiety. 7. Tobacco abuse. PLAN: The patient's IV is going to be restarted at his request. I am going to resume his IV fluids, IV antibiotics. We need to confirm his home medication list and get all of those restarted. Once again, I will hold his metformin because of his elevated creatinine. We will watch his blood sugars q.a.c. and h.s., using sliding scale insulin as necessary. I will repeat blood work, x-ray , etc., tomorrow morning. #[id number] [facility]
[2017-04-08] MEDS ORDERED: HYDROcodone 10MG/APAP 325MG 1 EA TAB PO PRN (10:02)
[2017-04-08] MEDS ORDERED: NON-FORMULARY MEDICATION 1 EA MIS (Lisinopril & Hydrochlorothiazi [Lisinopril/Hctz 20-12.5 PO SCH (10:15)
[2017-04-08] MEDS: GABAPENTIN 300 MG CAP PO SCH ×2 (10:44→20:02)
[2017-04-08] MEDS: lamoTRIgine 100 MG TAB PO SCH (10:44)
[2017-04-08] MEDS: DULoxetine HCL 30 MG CAP PO SCH (10:45)
[2017-04-08] MEDS: LISINOPRIL 10 MG TAB PO SCH ×2 (10:45→20:03)
[2017-04-08] MEDS: VARENICLINE 0.5 MG TAB PO SCH (10:45)
[2017-04-08] MEDS: risperiDONE 1 MG TAB PO SCH ×2 (10:45→20:03)
[2017-04-08] MEDS: ASPIRIN (CHEWABLE) 81 MG TAB PO SCH (10:45)
[2017-04-08] MEDS: PRIMIDONE 50 MG TAB PO SCH ×2 (10:45→20:03)
[2017-04-08] MEDS: hydroCHLOROthiazide 12.5 MG CAP PO SCH ×2 (10:45→20:03)
[2017-04-08] MEDS ORDERED: MORPHINE ER 30 MG TAB PO SCH (11:00)
[2017-04-08] MEDS: INSULIN LISPRO 100 UNITS/ML PEN SUBCU SCH ×3 (11:30→20:52)
[2017-04-08] MEDS: KCL 20MEQ/0.45% NS 1,000 ML IVS PRN ×2 (11:53→19:37)
[2017-04-08] MEDS ORDERED: SODIUM CHLORIDE 0.9% 250ML 250 ML ONE (19:09)
[2017-04-08] MEDS ORDERED: SODIUM CHL 0.9% 50ML MIN-BAG+ 50 ML IVPB ONE (19:10)
[2017-04-08] MEDS ORDERED: AZITHROMYCIN IV 500 MG VIAL IVPB ONE (19:10)
[2017-04-08] MEDS ORDERED: SIMVASTATIN 20 MG TAB ONE (19:10)
[2017-04-08] MEDS ORDERED: cefTRIAXone SODIUM 1 GM VIAL ONE (19:10)
[2017-04-08] MEDS ORDERED: SIMVASTATIN 20 MG TAB PO SCH (21:00)
[2017-04-09 06:11] VITALS: BP 126/79; TEMP 98.9
[2017-04-09] MEDS: KCL 20MEQ/0.45% NS 1,000 ML IVS PRN (06:11)
[2017-04-09] MEDS: INSULIN LISPRO 100 UNITS/ML PEN SUBCU SCH (07:02)
--- NOTE | 2017-04-09 07:09 | RAD ---
Procedure: XR CHEST 2 VIEWS Exam Date: 04/09/2017 Ordering Provider: ANASTASIA GARCIA MD Clinical Indication: pneumonia Comparison: 04/08/2017 Findings: Cardiac silhouette: Normal Pulmonary vasculature : Normal Mediastinal contour: Normal Aortic contour: Normal Focal lung consolidation: Left basilar atelectasis and/or infiltrate. Right lung is clear. Pleural effusion: No large pleural effusions. Pneumothorax: None Acute bony or soft tissue abnormality: None Impression: 1. Left basilar atelectasis and/or infiltrate. 2. No new findings. Electronically signed by: Ezio Chowdhury MD 04/09/2017 7:09 AM CDT
[2017-04-09] MEDS: ASPIRIN (CHEWABLE) 81 MG TAB PO SCH (08:37)
[2017-04-09] MEDS: PRIMIDONE 50 MG TAB PO SCH (08:37)
[2017-04-09] MEDS: DULoxetine HCL 30 MG CAP PO SCH (08:37)
[2017-04-09] MEDS: GABAPENTIN 300 MG CAP PO SCH (08:37)
[2017-04-09] MEDS: LISINOPRIL 10 MG TAB PO SCH (08:38)
[2017-04-09] MEDS: risperiDONE 1 MG TAB PO SCH (08:38)
[2017-04-09] MEDS: hydroCHLOROthiazide 12.5 MG CAP PO SCH (08:38)
[2017-04-09] MEDS: VARENICLINE 0.5 MG TAB PO SCH (08:38)
[2017-04-09] MEDS: lamoTRIgine 100 MG TAB PO SCH (08:38)
[2017-04-09] MEDS: ENOXAPARIN SODIUM 40 MG/0.4 ML SYG SUBCU SCH (08:39)
[2017-04-09] MEDS ORDERED: AZITHROMYCIN 250 MG TAB PO ONE (09:09)
[2017-04-09 09:21] VITALS: O2SAT 94
--- NOTE | 2017-04-09 10:11 | DS ---
SUPERVISING PHYSICIAN: John Russell MD DISCHARGE DIAGNOSIS: 1. Left lower lobe pneumonia with hypoxemia. 2. Rhabdomyolysis. 3. Acute renal failure. 4. Elevated troponin with no evidence of myocardial infarction. 5. Depression. 6. Anxiety. 7. Tobacco abuse. HISTORY OF PRESENT ILLNESS: This is a 56-year-old male patient who presented to the Emergency Room with a two day history of cough, malaise, and a one day history of low grade fevers. On admission to the Emergency Room, he was debilitated and quite confused. It was reported that he had fallen on his deck and fell asleep for about six hours, and he called EMS. He was transported to the Emergency Room at that time. In the Emergency Room, he was found to have an early right lower lobe pneumonia as well as elevated CPK of greater than 1200. There was some suspicion that he was intoxicated, but his alcohol was less than 5.4. He initially had a white blood cell count of 16.7 with neutrophils of 87.8. Sodium was 132, chloride 97, BUN 40, creatinine 2.70, magnesium 1.7, AST 47, creatinine kinase 1,263, troponin 1.17. He was admitted to the hospital for a left lower lobe pneumonia, rhabdomyolysis as well as kidney failure. HOSPITAL COURSE: He was hydrated and given Zithromax and Rocephin. His condition improved. At one point, he even tried to leave against medical advice , but was reassured that a stay in the hospital another day would help his condition. Again, today he wants to leave so he can smoke and says he "feels better". I am also concerned that he sees Dr. Umaña in [place] and he may be taking too much of his MS Contin as he gets 60 mg twice a day. He was given that in the hospital and he slept for over six hours on one dose. Over medication may have contributed to his falling asleep on the deck. Today, his vital signs are stable. He will be discharged home. DISCHARGE PLAN: The patient will be discharged home on his previous medications although I have cautioned him about using his MS Contin at this time. He will also be discharged on Zithromax to complete his antibiotic regimen. I have called Dr. Umaña's office and she will not be in until next week, so I have gotten him an appointment with her, but I also have a call into Dr. Greg Cowart, her partner, and hopefully he can be seen in the [facility] in the next day or two to reevaluate his pain medication. He will be discharged home in fair condition. He is to resume his previous activity. He has [facility]. I will also call them and make sure they check on him over the next few days until he can get in to see Dr. Cowart or Dr. Umaña. DISCHARGE MEDICATIONS: 1. Chantix. 2. Metformin. 3. Hydrocodone. 4. Gabapentin. 5. Simvastatin. 6. Lisinopril/hydrochlorothiazide. 7. Hydroxyzine. 8. Beclomethasone. 9. Risperdal. 10. Lamotrigine. 11. Ropinirole. 12. Fish oil. 13. Multivitamins. 14. Primidone. 15. Potassium gluconate. 16. Aspirin. 17. Cymbalta. 18. Magnesium oxide. 19. Azithromycin. Dr. Russell is the collaborating physician and available for consultation. #[id number] [facility]ENTERMaurice
== END 2017-04-09 09:55 | disposition home health service (06) | DRG 682 ==
LOC: ER 21:16 → MS 23:36 → OBSVTOIN 23:36 → MS 04-08 11:54
PROVIDERS: ADMIT Family Medicine; ATTEND Nurse Practitioner Acute Care
DX: N17.9 Acute kidney failure, unspecified (principal); J18.9 Pneumonia, unspecified organism; M62.82 Rhabdomyolysis; R09.02 Hypoxemia; R74.8 Abnormal levels of other serum enzymes; I12.9 Hypertensive chronic kidney disease with stage 1 through stage 4 chronic kidney disease, or unspecified chronic kidney disease; N18.9 Chronic kidney disease, unspecified; F32.9 Major depressive disorder, single episode, unspecified; F41.9 Anxiety disorder, unspecified; G89.29 Other chronic pain; M51.36 Other intervertebral disc degeneration, lumbar region; J44.9 Chronic obstructive pulmonary disease, unspecified; E86.0 Dehydration; E11.9 Type 2 diabetes mellitus without complications; F17.210 Nicotine dependence, cigarettes, uncomplicated; Z79.84 Long term (current) use of oral hypoglycemic drugs; Z79.52 Long term (current) use of systemic steroids; Z79.1 Long term (current) use of non-steroidal anti-inflammatories (NSAID); Z79.899 Other long term (current) drug therapy

== ENCOUNTER 2017-04-10 15:50 | Inpatient (IN) | payer MEDICARE ==
--- NOTE | 2017-04-10 16:12 | ED.PDOC ---
History of Present Illness - General Stated Complaint: weakness, lethargic Time Seen by Provider: 04/10/17 16:00 Source: patient Exam Limitations: no limitations Additional Information: PT LEFT AMA YESTERDAY. WAS IN THE HOSPITAL FOR PNEUMONIA AND RHABDOMYOLYSIS. LEFT AMA SO HE COULD GO SMOKE. - History of Present Illness Timing/Duration: other - 3 DAYS Severity: moderate Improving Factors: nothing Allergies/Adverse Reactions: Allergies NO KNOWN ALLERGY Allergy (Verified 04/07/17 23:19) Home Medications: Ambulatory Orders Aspirin [Qc Chewable Aspirin Low D] 81 mg PO DAILY 04/08/17 Beclomethasone Dipropionate [Qvar] 40 mcg IN DAILY PRN 04/08/17 DULoxetine HCL [Cymbalta] 30 mg PO DAILY 04/08/17 Gabapentin 600 mg PO BID 04/08/17 HYDROcodone 10MG/APAP 325MG [Meherrin 10/325] 1 ea PO Q6H PRN 04/08/17 Hydroxyzine HCl 50 mg PO DAILY PRN 04/08/17 Lamotrigine 200 mg PO DAILY 04/08/17 Lisinopril & Hydrochlorothiazi [Lisinopril/Hctz 20-12.5 mg] 1 tab PO BID Magnesium Oxide (mg Supplement [Magnesium Oxide] 400 mg PO DAILY 04/08/17 Metformin HCl 1,000 mg PO BIDFD 04/08/17 Multiple Vitamins W/ Minerals [Multivitamin Adults] 1 tab PO DAILY 04/08/17 Floral-3 Fatty Acids [Fish Oil 1000 mg] 1 cap PO BID 04/08/17 Potassium Gluconate 595 mg PO DAILY 04/08/17 Primidone 375 mg PO BID 04/08/17 Risperidone [Risperdal] 1 mg PO BID 04/08/17 Ropinirole Hydrochloride [Ropinirole HCl] 1 mg PO BEDTIME PRN 04/08/17 Simvastatin 20 mg PO BEDTIME 04/08/17 Varenicline [Chantix] 0.5 mg PO DAILY 04/08/17 Azithromycin Tab [Zithromax Tab] 500 mg PO QD #3 tab 04/09/17 Review of Systems - Review of Systems Constitutional: Denies: chills, fever EENTM: States: no symptoms reported Respiratory: States: cough, short of breath. Denies: wheezing Cardiology: Denies: chest pain, palpitations, syncope Gastrointestinal/Abdominal: States: no symptoms reported Genitourinary: States: no symptoms reported Musculoskeletal: States: no symptoms reported Skin: States: no symptoms reported Neurological: States: no symptoms reported Endocrine: States: no symptoms reported Past Medical History (General) - Patient Medical History Hx Seizures: Yes Hx Stroke: No Hx Dementia: No Hx Asthma: No Hx of COPD: Yes Hx Cardiac Disorders: No Hx Congestive Heart Failure: No Hx Pacemaker: No Hx Hypertension: Yes Hx Thyroid Disease: No Hx Diabetes: Yes Hx Gastroesophageal Reflux: No Hx Renal Disease: No Hx Cancer: No Hx of HIV: No Hx Hepatitis C: No Hx MRSA: No - Vaccination History Hx Tetanus, Diphtheria Vaccination: No Hx Influenza Vaccination: Yes Hx Pneumococcal Vaccination: Yes - Social History Hx Tobacco Use: Yes Hx Chewing Tobacco Use: No Hx Alcohol Use: No Hx Substance Use: No Hx Substance Use Treatment: No Hx Depression: No Hx Physical Abuse: No Hx Emotional Abuse: No Hx Suspected Abuse: No - Female History Patient : No Family Medical History - Family History Father Family History: Unknown Living Status: Hx Family Asthma: No Hx Family Congestive Heart Failure: No Hx Family Hypertension: No Hx Family Stroke: No Hx Cardiac Disease: Yes Hx Family Diabetes: No Hx Family Cancer: Yes - melanoma -dad Hx Family;Other: alch hx Physical Exam - Physical Exam General Appearance: No apparent distress, Other - SOMNOLENT BUT ANSWERS QUESTIONS APPROPRIATELY. FOLLOWS COMMANDS. Eye Exam: bilateral normal Ears, Nose, Throat: normal ENT inspection Neck: non-tender, full range of motion, supple Respiratory: no respiratory distress, rales - RICARDO L>R, LLL CONSOLIDATION, other - SATS 91% ON RA Cardiovascular/Chest: regular rate, rhythm, no murmur Gastrointestinal/Abdominal: normal bowel sounds, soft, no organomegaly Back Exam: normal inspection, no CVA tenderness Extremity: normal range of motion, normal inspection Neurologic: no motor/sensory deficits, normal mood/affect - SOMNOLENT, AROUSES TO VERBAL STIMULATION AND ANSWERS QUESTIONS APPROPRIATELY. Skin Exam: normal color, warm/dry Lymphatic: no adenopathy Departure - Departure Clinical Impression: Pneumonia Qualifiers: Pneumonia type: due to unspecified organism Laterality: left Lung location: lower lobe of lung Qualified Code(s): J18.9 - Pneumonia, unspecified organism Rhabdomyolysis Qualifiers: Rhabdomyolysis type: non-traumatic Qualified Code(s): M62.82 - Rhabdomyolysis Time of Disposition: 16:23 - D/W PAM CONTRERAS, WILL RE ADMIT Disposition: Admit Patient Condition: Fair Referrals: Fatmata Umaña DO [Primary Care Provider] - 1-2 Weeks Home Medications: Ambulatory Orders Aspirin [Qc Chewable Aspirin Low D] 81 mg PO DAILY 04/08/17 Beclomethasone Dipropionate [Qvar] 40 mcg IN DAILY PRN 04/08/17 DULoxetine HCL [Cymbalta] 30 mg PO DAILY 04/08/17 Gabapentin 600 mg PO BID 04/08/17 HYDROcodone 10MG/APAP 325MG [Meherrin 10/325] 1 ea PO Q6H PRN 04/08/17 Hydroxyzine HCl 50 mg PO DAILY PRN 04/08/17 Lamotrigine 200 mg PO DAILY 04/08/17 Lisinopril & Hydrochlorothiazi [Lisinopril/Hctz 20-12.5 mg] 1 tab PO BID Magnesium Oxide (mg Supplement [Magnesium Oxide] 400 mg PO DAILY 04/08/17 Metformin HCl 1,000 mg PO BIDFD 04/08/17 Multiple Vitamins W/ Minerals [Multivitamin Adults] 1 tab PO DAILY 04/08/17 Floral-3 Fatty Acids [Fish Oil 1000 mg] 1 cap PO BID 04/08/17 Potassium Gluconate 595 mg PO DAILY 04/08/17 Primidone 375 mg PO BID 04/08/17 Risperidone [Risperdal] 1 mg PO BID 04/08/17 Ropinirole Hydrochloride [Ropinirole HCl] 1 mg PO BEDTIME PRN 04/08/17 Simvastatin 20 mg PO BEDTIME 04/08/17 Varenicline [Chantix] 0.5 mg PO DAILY 04/08/17 Azithromycin Tab [Zithromax Tab] 500 mg PO QD #3 tab 04/09/17
--- NOTE | 2017-04-10 18:14 | HP ---
SUPERVISING PHYSICIAN: John Russell MD CHIEF COMPLAINT: Weakness and lethargy. HISTORY OF PRESENT ILLNESS: This is a 56-year-old male patient who was released from the hospital yesterday with diastolic dysfunction of left lower lobe pneumonia, rhabdomyolysis, acute renal failure and an elevated troponin with no evidence of myocardial infarction. On his previous hospital stay, he was treated with azithromycin and Rocephin. It was also found he was probably over medicated as he takes quite a lot of pain medications including MS Contin 60 mg twice a day. He was in the hospital and on his first day, he tried to go AMA. He was talked into being treated for his pneumonia. He stayed another day and he was also found to have an elevated CPK of greater than 1200 because he said he had passed out on his deck. Yesterday, he said he wanted to go home and he would have close followup with his physician and would return to the hospital if there were any problems. Today, he was extremely weak and lethargic and came back to the hospital. He is being re-admitted for pneumonia as well as exacerbation of his chronic obstructive pulmonary disease as well as questionable over medication with his pain medications. PAST MEDICAL HISTORY: 1. Type 2 diabetes mellitus. 2. Lumbar disc disease. 3. Depression. 4. Hypertension. PAST SURGICAL HISTORY: Unknown. CURRENT MEDICATIONS: Per the EMR and awaiting verification. ALLERGIES: NO KNOWN DRUG ALLERGIES. FAMILY HISTORY: Noncontributory. SOCIAL HISTORY: The patient smokes one pack of cigarettes a day. He denies any ETOH or illicit drug use. REVIEW OF SYSTEMS: GENERAL: Positive for fevers. Denies chills or weight changes. HEENT: Denies sinus symptoms, ear pain, vision changes or sore throat. RESPIRATORY: Positive for shortness of breath, coughing. Denies wheezing. CARDIAC: Denies chest pain, palpitations or tachycardia. GASTROINTESTINAL: Denies nausea, vomiting, diarrhea, or abdominal pain. GENITOURINARY: Denies hematuria, dysuria or polyuria. NEUROLOGIC: Positive for weakness. Denies dizziness or seizures. PHYSICAL EXAMINATION: VITAL SIGNS: Afebrile. Heart rate 69. Blood pressure 125/70. Respiratory rate 20. O2 saturation has dropped as low as 81%, but on oxygen comes up to 90 to 93%. GENERAL: This is a 56-year-old, male patient who is somewhat lethargic laying in his hospital bed. HEENT: Normocephalic, atraumatic. Pupils are equal and reactive. Oropharynx is clear. NECK: Supple without mass. RESPIRATORY: Diminished breath sounds throughout, especially on the left lower lobe. There are some scattered rhonchi as well as some expiratory wheezes. CHEST: There is equal rise and fall of the chest with inspiration and expiration. CARDIOVASCULAR: Regular rate and rhythm. ABDOMEN: Soft, nondistended, nontender. Bowel sounds are positive. EXTREMITIES: No cyanosis, clubbing or edema. NEUROLOGIC: He is lethargic. He does awaken. He answers simple yes/no questions. He is oriented times three. LABORATORY: Labs and films are pending in the EMR. ASSESSMENT: 1. Altered mental status with a recent history of pneumonia and rhabdomyolysis. 2. Left lower lobe pneumonia with hypoxemia. 3. Recent rhabdomyolysis. 4. Chronic obstructive pulmonary disease with acute exacerbation. 5. Type 2 diabetes mellitus. 6. Chronic low back pain secondary to lumbar disc disease. 7. Depression. PLAN: We will admit the patient to the histologic. He has agreed that he will not leave against medical advice. I have started him on some Levaquin as well as some Solu-Medrol. We are going to get breathing treatments. We will restart his home medications with the exception of his pain medications. Previously, it was felt that he may have been over medicated and that may contribute to his altered mental status. I will do neuro checks. We will repeat labs in the morning as well as CPK. Otherwise, we will continue to monitor the patient closely and followup as needed. Dr. Russell is the collaborating physician and available for consultation. #[id number] [facility]
[2017-04-10] MEDS ORDERED: IPRATROPIUM/ALBUTEROL 3 ML VIAL NEB ONE ×2 (20:00→20:53)
[2017-04-10] MEDS ORDERED: ALBUTEROL SULFATE 2.5 MG/3 ML VIAL NEB PRN (20:14)
[2017-04-10] MEDS ORDERED: ONDANSETRON INJ 4 MG/2 ML VIAL IV PRN (20:14)
[2017-04-10] MEDS ORDERED: ACETAMINOPHEN 325 MG TAB PO PRN (20:14)
[2017-04-10] MEDS ORDERED: SODIUM CHLORIDE 0.9% (FLUSH) 10 ML SYG IV PRN (20:14)
[2017-04-10] MEDS ORDERED: methylPREDNISolone SODIUM SUC 125 MG/2 ML VIAL IV ONE (20:21)
[2017-04-10] MEDS ORDERED: IV SET AND CAP CHANGE INJ INJ SCH (20:30)
[2017-04-10] MEDS ORDERED: DEXTROSE 50% 25 GM/50 ML SYG IV PRN (21:17)
[2017-04-10] MEDS ORDERED: GLUCAGON INJ 1 MG VIAL SUBCU PRN (21:17)
[2017-04-10] MEDS ORDERED: methylPREDNISolone SODIUM SUC 125 MG/2 ML VIAL ONE (21:26)
[2017-04-10] MEDS ORDERED: levoFLOXacin 500MG IV 100 ML IVPB ONE (21:26)
[2017-04-10] MEDS ORDERED: ENOXAPARIN SODIUM 30 MG/0.3 ML SYG SUBCU SCH (21:30)
[2017-04-10] MEDS: levoFLOXacin 500MG IV 500 MG in PREMIX BAG 1 BAG IVPB SCH (21:42)
[2017-04-10] MEDS: PANTOPRAZOLE SODIUM IV 40 MG VIAL IV SCH (21:48)
--- NOTE | 2017-04-11 06:55 | RAD ---
Clinical History : copd , MAIN Exam : PA and lateral views of the chest 04/11/2017 12:00 AM CDT Comparisons : PA and lateral views of the chest April 09, 2017 Findings : There is increasing patchy bibasilar airspace disease. The rest the lungs remain largely clear with mild emphysematous changes bilaterally. The heart is normal in size. The mediastinal contours are normal in appearance. The thoracic spine is age appropriate. The shoulders are unremarkable. Limited evaluation of the upper abdomen demonstrates no gross abnormalities. Impression: Increasing patchy bibasilar airspace disease, atelectasis versus pneumonia. Electronically signed by: Nolvia Ayala MD 04/11/2017 6:55 AM CDT
--- NOTE | 2017-04-11 07:07 | CT ---
Clinical History : ams , MAIN Exam : CT Head without contrast 04/11/2017 7:00 AM CDT Comparisons : CT head without contrast November 08, 2014. Technique : Volumetric CT acquisition was performed through the brain. Images in the axial, coronal, and sagittal planes were presented for interpretation. This exam was performed according to our departmental dose-optimization program, which includes automated exposure control, adjustment of the mA and/or kV according to patient size and/or use of iterative reconstruction technique. Radiation dose : [id number]-677.23 Findings: The soft tissue structures of the face, scalp, and orbits are normal. The globes remain intact. The visualized portions of the paranasal sinuses and mastoid air-cells are clear. The calvarium remains intact . There is no acute intracranial hemorrhage, midline shift, or mass effect. The ventricles are normal in size and the posterior fossa structures are normal in appearance. Limited evaluation of the vasculature demonstrates no gross abnormalities. There is no CT evidence of acute infarction. Impression: No acute intracranial process (stable appearing brain). Electronically signed by: Nolvia Ayala MD 04/11/2017 7:06 AM CDT
[2017-04-11] MEDS: INSULIN LISPRO 100 UNITS/ML PEN SUBCU SCH ×4 (07:21→22:30)
[2017-04-11] MEDS: IPRATROPIUM/ALBUTEROL 3 ML VIAL INH SCH ×4 (08:59→19:30)
[2017-04-11] MEDS ORDERED: MAGNESIUM HYDROXIDE 30 ML UD PO ONE (11:56)
[2017-04-11] MEDS ORDERED: HYDROcodone 10MG/APAP 325MG 1 EA TAB PO PRN (15:01)
[2017-04-11] MEDS ORDERED: HYDROcodone 10MG/APAP 325MG 1 EA TAB ONE (15:04)
[2017-04-11] MEDS ORDERED: HYDROcodone 10MG/APAP 325MG 1 EA TAB PO ONE (15:31)
[2017-04-11] MEDS ORDERED: hydrOXYzine HCl 25 MG TAB PO PRN (15:34)
--- NOTE | 2017-04-11 15:40 | PCM.CORE ---
Physician DVT/VTE - Prophylaxis Currently: Patient already on anticoagulation therapy - Nurse DVT Assessment & Total Each Risk Factor Represents 1 Point: Age 41-60 Each Risk Factor is 1 Point: Serious Lung disease (pnemonia <1month, COPD, emphysema,etc) DVT Assessment Score: 2 - 2 Moderate Risk Treatments: Early Ambulation *, Sequential Compression Device
[2017-04-11] MEDS ORDERED: BECLOMETHASONE DIPROPIONATE 40 MCG IN SCH (15:45)
[2017-04-11] MEDS: DULoxetine HCL 30 MG CAP PO SCH (15:55)
[2017-04-11] MEDS: GABAPENTIN 300 MG CAP PO SCH ×2 (16:49→21:11)
[2017-04-11] MEDS: lamoTRIgine 100 MG TAB PO SCH (16:49)
[2017-04-11] MEDS: metFORMIN HCL 500 MG TAB PO SCH (17:21)
[2017-04-11] MEDS ORDERED: levoFLOXacin 500MG IV 100 ML IVPB ONE (21:09)
[2017-04-11] MEDS: LISINOPRIL 10 MG TAB PO SCH (21:11)
[2017-04-11] MEDS: PRIMIDONE 50 MG TAB PO SCH (21:11)
[2017-04-11] MEDS: ENOXAPARIN SODIUM 40 MG/0.4 ML SYG SUBCU SCH (21:11)
[2017-04-11] MEDS: risperiDONE 1 MG TAB PO SCH (21:12)
[2017-04-11] MEDS: hydroCHLOROthiazide 12.5 MG CAP PO SCH (21:12)
[2017-04-11] MEDS: SIMVASTATIN 20 MG TAB PO SCH (21:12)
[2017-04-11] MEDS: levoFLOXacin 500MG IV 500 MG in PREMIX BAG 1 BAG IVPB SCH (21:12)
[2017-04-11] MEDS: PANTOPRAZOLE SODIUM IV 40 MG VIAL IV SCH (21:15)
[2017-04-11] MEDS ORDERED: TEMAZEPAM 15 MG CAP PO PRN (21:23)
[2017-04-11] MEDS ORDERED: NICOTINE PATCH 21 MG TD ONE (22:17)
[2017-04-11] MEDS ORDERED: NICOTINE PATCH 21 MG TD SCH (23:00)
[2017-04-12] MEDS: HYDROcodone 10MG/APAP 325MG 1 EA TAB PO PRN (05:34)
[2017-04-12] MEDS: INSULIN LISPRO 100 UNITS/ML PEN SUBCU SCH ×4 (07:14→21:00)
[2017-04-12] MEDS: metFORMIN HCL 500 MG TAB PO SCH ×2 (08:45→17:47)
--- NOTE | 2017-04-12 08:47 | PN ---
SUPERVISING PHYSICIAN: Jabier Stuart MD DATE: 04/11/17 SUBJECTIVE: The patient is sitting up in his hospital bed. He is much more alert than yesterday. He is complaining of that he is in pain all over and he takes pain medications frequently. I have explained to him that his lethargy and decreased level of consciousness contributed to his hospitalization and that we would have to slowly go up n his pain medication. We compromised that I will give him his hydrocodone, but will not restart his MS Contin. He denies any chest pain, shortness of breath, nausea or vomiting. OBJECTIVE: VITAL SIGNS: Afebrile. Heart rate 93. Blood pressure 150/82. Respiratory rate 18. O2 saturation 93%. LUNGS: Bilateral rhonchi throughout, somewhat diminished on the left side. CARDIAC: Regular rate and rhythm. ABDOMEN: Soft, nontender, nondistended. Bowel sounds are positive. EXTREMITIES: No cyanosis, clubbing or edema. NEUROLOGIC: Awake, alert and oriented times three, although he does get confused with some short term memory issues. LABORATORY: WBC 6.1, hemoglobin 12.5, hematocrit 37.4, neutrophils 89.8. Sodium 133, potassium 4.8, chloride 101, carbon dioxide 25. Glucoses have run between 119 and 202. Preliminary blood cultures show no growth after 4 days. Chest x-ray per radiologic interpretation shows increasing patchy bibasilar airspace disease, atelectasis versus pneumonia. Head CT per radiologic interpretation shows no acute intracranial process. All other labs and films have been reviewed via the EMR. ASSESSMENT: 1. Left lower lobe pneumonia with hypoxia, presently on IV antibiotics of Levaquin. 2. Altered mental status, improved and has a negative head CT, most likely due to over medication as he is on large doses of opioids. 3. Recent rhabdomyolysis with an elevated CPK. 4. Chronic obstructive pulmonary disease with acute exacerbation. 5. Type 2 diabetes mellitus. 6. Chronic low back pain secondary to lumbar disc disease. 7. Depression. PLAN: We will continue present supportive care. I have compromised with the patient and I will increase his [place] 10 to 2 tablets q.6h. as needed. I will not restart his scheduled morphine. He is going to have to followup with his doctor in [place] about his pain medication dosings. I have given him a nicotine patch for his tobacco cravings as well as I have given him Restoril for sleep. I will repeat his lab and x-ray on Saturday morning. We will continue to monitor his cultures as well as his progress and followup as needed. Dr. Stuart is the collaborating physician and available for consultation. #[id number] [facility]
[2017-04-12] MEDS: IPRATROPIUM/ALBUTEROL 3 ML VIAL INH SCH ×4 (09:21→20:33)
[2017-04-12] MEDS: BECLOMETHASONE DIPROPIONATE 40 MCG INH SCH (09:23)
[2017-04-12] MEDS: FLUTICASONE/SALMETEROL 500/50 INH INH SCH ×2 (09:41→20:34)
[2017-04-12] MEDS: DULoxetine HCL 30 MG CAP PO SCH (09:45)
[2017-04-12] MEDS: lamoTRIgine 100 MG TAB PO SCH (09:45)
[2017-04-12] MEDS: GABAPENTIN 300 MG CAP PO SCH ×2 (09:45→21:32)
[2017-04-12] MEDS: LISINOPRIL 10 MG TAB PO SCH ×2 (09:45→21:33)
[2017-04-12] MEDS: PRIMIDONE 50 MG TAB PO SCH ×2 (09:46→21:34)
[2017-04-12] MEDS: risperiDONE 1 MG TAB PO SCH ×2 (09:46→21:31)
[2017-04-12] MEDS: hydroCHLOROthiazide 12.5 MG CAP PO SCH ×2 (09:50→21:39)
[2017-04-12] MEDS: BIFIDOBACTERIUM INFANTIS 4 MG CAP PO SCH (12:18)
[2017-04-12] MEDS: PANTOPRAZOLE SODIUM TAB 40 MG PO SCH (12:18)
[2017-04-12] MEDS: ALPRAZolam 0.5 MG TAB PO PRN (12:43)
[2017-04-12] MEDS ORDERED: NICOTINE PATCH 21 MG TD ONE (13:11)
[2017-04-12] MEDS: NICOTINE PATCH 21 MG TD SCH ×2 (13:15→21:31)
[2017-04-12] MEDS ORDERED: levoFLOXacin 500MG IV 100 ML IVPB ONE (20:49)
--- NOTE | 2017-04-12 21:11 | PN ---
DATE: 04/12/17 SUPERVISING PHYSICIAN: Jabier Stuart M.D. SUBJECTIVE: The patient is walking in the hallways. He is feeling much better. He denies any shortness of breath, chest pain, nausea, vomiting or diarrhea. He does complain of occasionally coughing. He is also very depressed because he just found out his best friend and he is very tearful. OBJECTIVE: VITAL SIGNS: He is afebrile, heart rate 84, blood pressure 156/84, respiratory rate 20, O2 sat is 92% on 2 liters nasal cannula. RESPIRATORY: Bilateral rhonchi throughout. CARDIAC: Regular rate and rhythm. ABDOMEN: Soft , nondistended, non-tender. Bowel sounds are positive. EXTREMITIES: No cyanosis, clubbing or edema. NEUROLOGIC: He is awake, alert and oriented times three. He is very tearful. LABORATORY: Blood sugars have run between 73 and 202. There are no other labs or films to report at this time. ASSESSMENT: 1. Left lower lobe pneumonia with hypoxia, presently on IV antibiotics of Levaquin. 2. Altered mental status, improved and has a negative head CT, most likely due to over medication as he is on large doses of opioids. 3. Recent rhabdomyolysis with an elevated CPK. 4. Chronic obstructive pulmonary disease with acute exacerbation. 5. Type 2 diabetes mellitus. 6. Chronic low back pain secondary to lumbar disc disease. 7. Depression. PLAN: We will continue present supportive care. I will reorder lab and x-ray for in the morning. Will get an ambulatory study. I have contacted Myrna, his home health nurse. It will be advisable to discontinue his p.o. morphine as he has done very well on Hydrocodone 10 mg 2 tabs every 6 hours as needed for pain. I am afraid a lot of his problems have been due to over medication. He has an appointment with Dr. Umaña in [place] on to go over his pain medications. Hopefully he will be able to be discharged tomorrow. We will continue his Levaquin. He will need to go home on several days of Levaquin. We need to make sure that he gets his prescription this time. Otherwise we will continue to monitor the patient closely and followup as needed. #[id number] [facility]
[2017-04-12] MEDS: levoFLOXacin 500MG IV 500 MG in PREMIX BAG 1 BAG IVPB SCH (21:25)
[2017-04-12] MEDS: ENOXAPARIN SODIUM 40 MG/0.4 ML SYG SUBCU SCH (21:31)
[2017-04-12] MEDS: SIMVASTATIN 20 MG TAB PO SCH (21:34)
[2017-04-13] MEDS: HYDROcodone 10MG/APAP 325MG 1 EA TAB PO PRN ×2 (03:32→09:00)
[2017-04-13] MEDS: ALPRAZolam 0.5 MG TAB PO PRN (03:33)
[2017-04-13] MEDS: PANTOPRAZOLE SODIUM TAB 40 MG PO SCH (05:43)
[2017-04-13 06:26] VITALS: O2SAT 92
--- NOTE | 2017-04-13 06:45 | RAD ---
Procedure: XR CHEST 2 VIEWS Exam Date: 04/13/2017 Ordering Provider: PAM CONTRERAS Clinical Indication: copd Comparison: 04/11/2017 Findings: Cardiac silhouette: Normal Pulmonary vasculature : Normal Mediastinal contour: Normal Aortic contour: Normal Focal lung consolidation: Left basilar atelectasis and/or infiltrate. Right basilar subsegmental atelectasis. Pleural effusion: No significant pleural effusions. Pneumothorax: None Acute bony or soft tissue abnormality: None Impression: 1. Left basilar atelectasis and/or infiltrate. 2. Right basilar subsegmental atelectasis. Electronically signed by: Ezio Chowdhury MD 04/13/2017 6:45 AM CDT
[2017-04-13] MEDS: INSULIN LISPRO 100 UNITS/ML PEN SUBCU SCH (07:00)
[2017-04-13] MEDS: metFORMIN HCL 500 MG TAB PO SCH (08:11)
[2017-04-13] MEDS: FLUTICASONE/SALMETEROL 500/50 INH INH SCH (08:33)
[2017-04-13] MEDS: IPRATROPIUM/ALBUTEROL 3 ML VIAL INH SCH (08:33)
[2017-04-13] MEDS: BECLOMETHASONE DIPROPIONATE 40 MCG INH SCH (08:37)
[2017-04-13] MEDS: lamoTRIgine 100 MG TAB PO SCH (09:00)
[2017-04-13] MEDS: hydroCHLOROthiazide 12.5 MG CAP PO SCH (09:00)
[2017-04-13] MEDS: DULoxetine HCL 30 MG CAP PO SCH (09:00)
[2017-04-13] MEDS: BIFIDOBACTERIUM INFANTIS 4 MG CAP PO SCH (09:00)
[2017-04-13] MEDS: GABAPENTIN 300 MG CAP PO SCH (09:00)
[2017-04-13] MEDS: risperiDONE 1 MG TAB PO SCH (09:00)
[2017-04-13] MEDS: LISINOPRIL 10 MG TAB PO SCH (09:00)
[2017-04-13] MEDS: PRIMIDONE 50 MG TAB PO SCH (09:01)
[2017-04-13 12:00] VITALS: BP 146/79; TEMP 97.7
--- NOTE | 2017-04-20 17:49 | DS ---
SUPERVISING PHYSICIAN: Jabier Stuart M.D. DISCHARGE DIAGNOSIS: 1. Left lower lobe pneumonia with hypoxia, improving after starting on Levaquin. 2. Altered mental status on admission, improved with a negative head CT felt to be likely due to over medication from large doses of opioids, improved. 3. Recent rhabdomyolysis with an elevated CPK, improving. 4. Chronic obstructive pulmonary disease with acute exacerbation secondary to number 1 improving after initiation of treatment with antibiotics. 5. Type 2 diabetes mellitus, controlled. 6. Chronic low back pain secondary to lumbar disc disease. 7. Depression. HISTORY OF PRESENT ILLNESS: Mr. Pérez is a 56-year-old male patient that was released from the hospital on 04/09/17 with a diastolic dysfunction with left lower lobe pneumonia, rhabdomyolysis, acute renal failure and an elevated troponin with no evidence of myocardial infarction. On his previous hospital stay, he was treated with azithromycin and Rocephin. It was found that he was probably over medicated as he takes quite a lot of pain medications including MS Contin 60 mg twice a day. He was in the hospital and on his first day, he tried to go AMA. He was talked into being treated for his pneumonia. He stayed another day and he was also found to have an elevated CPK of greater than 1200 because he said he had passed out on his deck. The day before admission, he said he wanted to go home and he would have close followup with his physician and would return to the hospital if there were any problems. On admission, 04/10/17, he was extremely weak and lethargic and came back to the hospital. He was re-admitted for pneumonia as well as exacerbation of his chronic obstructive pulmonary disease as well as questionable over medication with his pain medications. LABORATORY: Admission white count was 8.6, hemoglobin 11.9, hematocrit 35.1 with platelet count 241,000. Differential was within normal limits. At discharge, CBC was essentially unchanged with white count 9.1, hemoglobin and hematocrit were stable and there was no left shift. Chemistries on admission showed low sodium 133, potassium 4.1, BUN 13, creatinine 0.89. Liver functions showed to be within normal limits. Elevated CPK at 235. After initiation of treatment prior to discharge, sodium was near normal at 134, potassium 4.1. All other electrolytes were within normal limits. BUN 14, creatinine 0.93. MICROBIOLOGY: There were no microbiology specimens submitted. RADIOLOGY: Chest x-ray in the Emergency Department prior to admission per radiology interpretation showed increasing patchy bibasilar airspace disease, atelectasis versus pneumonia. He also had a CT of the head without contrast in the E. R. and prior to admission per radiology interpretation there were no acute intracranial processes noted, stable-appearing brain. Prior to discharge on 04/13/17 he had a final chest x-ray that showed per radiology interpretation left basilar atelectasis with infiltrate and right basilar subsegmental atelectasis. HOSPITAL COURSE: Mr. Pérez is a 56 year-old male that was admitted as noted above in his History of Present Illness for exacerbation of chronic obstructive pulmonary disease with pneumonia and initiation of antibiotic therapy was started with Levaquin as well as Solu-Medrol. He was started on aggressive pulmonary hygiene and clinically progressed well to the day of discharge when he was felt to be clinically improved well enough to be discharged. On date of discharge, he was afebrile. Blood pressure was 146/79, heart rate 86, he was satting 92% on room air. PLAN: Mr. Pérez was discharged on 04/13/17 to have close clinical followup with his primary care provider, Dr. Umaña scheduled and to resume his home medications as instructed and start new prescriptions as directed. He was instructed to return to the hospital should he have any concerning symptoms or return of his symptoms or failure to improve. At discharge, new prescriptions included: 1. Align 4 mg daily. 2. Continue Hydrocodone as needed as previous to hospitalization. 3. New prescription for Levaquin 500 mg for 4 days. Diet at discharge 1800 ADA diet as tolerated. Activity is to increase as tolerated. Condition at discharge was stable and improved. #[id number] [facility]
== END 2017-04-13 11:10 | disposition home health service (06) | DRG 917 ==
LOC: ER 15:50 → MS 18:12
PROVIDERS: ADMIT Nurse Practitioner Acute Care; ATTEND Nurse Practitioner Family
DX: T40.2X1A Poisoning by other opioids, accidental (unintentional), initial encounter (principal); J18.9 Pneumonia, unspecified organism; J44.0 Chronic obstructive pulmonary disease with (acute) lower respiratory infection; M62.82 Rhabdomyolysis; J44.1 Chronic obstructive pulmonary disease with (acute) exacerbation; R09.02 Hypoxemia; R41.82 Altered mental status, unspecified; E11.9 Type 2 diabetes mellitus without complications; G89.29 Other chronic pain; M51.36 Other intervertebral disc degeneration, lumbar region; I10 Essential (primary) hypertension; F32.9 Major depressive disorder, single episode, unspecified; Y92.009 Unspecified place in unspecified non-institutional (private) residence as the place of occurrence of the external cause; F17.210 Nicotine dependence, cigarettes, uncomplicated; Z79.82 Long term (current) use of aspirin; Z79.84 Long term (current) use of oral hypoglycemic drugs; Z79.899 Other long term (current) drug therapy; Z79.891 Long term (current) use of opiate analgesic

== ENCOUNTER 2017-04-19 16:23 | Emergency (ER) | payer MEDICARE ==
--- NOTE | 2017-04-19 17:50 | ED.PDOC ---
History of Present Illness - General Chief Complaint: ENT Problem Stated Complaint: LEFT EAR PAIN Time Seen by Provider: 04/19/17 17:46 Source: patient - History of Present Illness Initial Comments: Mik Pérez 56 y/o male stated that for the last 5 days He stated that he had sharp left sided earache radiating down to his neck and left side of his chest.He stated getting worse.Treated for pneumonia 10 days ago Timing/Duration: other - 5 days Improving Factors: nothing Worsening Factors: movement Associated Symptoms: denies symptoms Allergies/Adverse Reactions: Allergies NO KNOWN ALLERGY Allergy (Verified 04/10/17 16:06) Home Medications: Ambulatory Orders RX: Aspirin [Qc Chewable Aspirin Low D] 81 mg PO DAILY 04/08/17 RX: Beclomethasone Dipropionate [Qvar] 40 mcg IN DAILY PRN 04/08/17 RX: DULoxetine HCL [Cymbalta] 30 mg PO DAILY 04/08/17 RX: Gabapentin 600 mg PO BID 04/08/17 RX: HYDROcodone 10MG/APAP 325MG [[place] 10/325] 1 ea PO Q6H PRN 04/08/17 RX: Hydroxyzine HCl 50 mg PO DAILY PRN 04/08/17 RX: Lamotrigine 200 mg PO DAILY 04/08/17 RX: Lisinopril & Hydrochlorothiazi [Lisinopril/Hctz 20-12.5 mg] 1 tab PO BID RX: Magnesium Oxide (mg Supplement [Magnesium Oxide] 400 mg PO DAILY 04/08/17 RX: Metformin HCl 1,000 mg PO BIDFD 04/08/17 RX: Multiple Vitamins W/ Minerals [Multivitamin Adults] 1 tab PO DAILY 04/08/17 RX: [place]-3 Fatty Acids [Fish Oil 1000 mg] 1 cap PO BID 04/08/17 RX: Potassium Gluconate 595 mg PO DAILY 04/08/17 RX: Primidone 375 mg PO BID 04/08/17 RX: Risperidone [Risperdal] 1 mg PO BID 04/08/17 RX: Ropinirole Hydrochloride [Ropinirole HCl] 1 mg PO BEDTIME PRN 04/08/17 RX: Simvastatin 20 mg PO BEDTIME 04/08/17 RX: Varenicline [Chantix] 0.5 mg PO DAILY 04/08/17 RX: Bifidobacterium Infantis [Align] 4 mg PO DAILY 04/13/17 RX: HYDROcodone 10MG/APAP 325MG [[place] 10/325] 1 - 2 ea PO Q6H PRN 04/13/17 levoFLOXacin [Levaquin] 500 mg PO DAILY #4 tab 04/13/17 Acetamin W/Cod #3 Tab [Tylenol w/CODEINE #3] 1 ea PO Q6HRS PRN #14 tab 04/19/17 Ciprofloxacin [Cipro] 500 mg PO BID #14 tab 04/19/17 Review of Systems - Review of Systems Constitutional: States: no symptoms reported EENTM: States: see HPI Respiratory: States: cough - chronic Cardiology: States: see HPI Gastrointestinal/Abdominal: States: no symptoms reported Genitourinary: States: no symptoms reported Musculoskeletal: States: no symptoms reported Skin: States: no symptoms reported Neurological: States: seizure Endocrine: States: no symptoms reported Hematologic/Lymphatic: States: no symptoms reported Past Medical History (General) - Patient Medical History Hx Seizures: Yes Hx Stroke: No Hx Dementia: No Hx Asthma: No Hx of COPD: Yes Hx Cardiac Disorders: No Hx Congestive Heart Failure: No Hx Pacemaker: No Hx Hypertension: Yes Hx Thyroid Disease: No Hx Diabetes: Yes Hx Gastroesophageal Reflux: No Hx Renal Disease: No Hx Cancer: No Hx of HIV: No Hx Hepatitis C: No Hx MRSA: No Surgical History: other - hernia repair,knee,lower back - Vaccination History Hx Tetanus, Diphtheria Vaccination: No Hx Influenza Vaccination: Yes Hx Pneumococcal Vaccination: Yes - Social History Hx Tobacco Use: Yes Years Tobacco Use: 44 Cigarettes Packs Per Day: 40 Hx Chewing Tobacco Use: No Hx Alcohol Use: No Hx Substance Use: No Hx Substance Use Treatment: No Hx Depression: No Hx Physical Abuse: No Hx Emotional Abuse: No Hx Suspected Abuse: No - Activities of Daily Living Grooming Ability: Independent Eating (Feeding) Ability: Independent Toileting Ability: Independent - Female History Patient : No Family Medical History - Family History Father Family History: Unknown Living Status: Hx Family Asthma: No Hx Family Congestive Heart Failure: No Hx Family Hypertension: No Hx Family Stroke: No Hx Cardiac Disease: Yes Hx Family Diabetes: No Hx Family Cancer: Yes - melanoma -dad Hx Family;Other: alch hx Physical Exam - Physical Exam General Appearance: Alert, No apparent distress Eye Exam: bilateral normal Ears, Nose, Throat: hearing grossly normal, normal ENT inspection, normal pharynx Neck: non-tender, full range of motion, supple Respiratory: chest non-tender, no respiratory distress, decreased breath sounds Cardiovascular/Chest: normal peripheral pulses, regular rate, rhythm, no edema, no gallop, no murmur Peripheral Pulses: radial,right: 2+, radial,left: 2+ Gastrointestinal/Abdominal: normal bowel sounds, non tender, soft Back Exam: normal inspection, no CVA tenderness, no vertebral tenderness Extremity: normal range of motion, non-tender, normal inspection, no pedal edema , no calf tenderness Neurologic: no motor/sensory deficits, alert, normal mood/affect, oriented x 3 Skin Exam: normal color, warm/dry Lymphatic: no adenopathy Progress - Progress Progress: 04/19/17 23:19 He stated that he cut down on his smoking and gradually quit slowly. - Results/Orders Results/Orders: Vital Signs - 8 hr 04/19/17 04/19/17 04/19/17 16:27 17:00 18:00 Temperature 97.8 F Pulse Rate [LAC 90 84 82 ] Respiratory 20 16 16 Rate Blood Pressure 93/54 112/71 108/60 [BRACHIAL] O2 Sat by Pulse 97 92 L 94 L Oximetry 04/19/17 04/19/17 20:36 21:14 Temperature Pulse Rate [LAC 65 73 ] Respiratory 20 20 Rate Blood Pressure 142/84 113/73 [BRACHIAL] O2 Sat by Pulse 90 L 90 L Oximetry 04/19/17 18:00 EKG STAT 04/19/17 18:06 TSH [THYROID STIMULATING HORMONE] Stat 04/19/17 20:45 [facility] [place] [place] ONCE 04/19/17 21:24 Abdoment/Pelvis w/o Contrast [CT] Stat Chest w/o Contrast [CT] Stat Laboratory Results WBC 13.2 K/mm3 (4.8-10.8) H 04/19/17 18:06 RBC 4.31 M/mm3 (4.70-6.10) L 04/19/17 18:06 Hgb 12.4 gm/dL (14.0-18.0) L 04/19/17 18:06 Hct 37.1 % (42.0-52.0) L 04/19/17 18:06 MCV 85.9 fl (80.0-94.0) 04/19/17 18:06 MCH 28.7 pg (27.0-31.0) 04/19/17 18:06 MCHC 33.4 g/dL (33.0-37.0) 04/19/17 18:06 RDW 13.1 % (11.5-14.5) 04/19/17 18:06 Plt Count 354 K/mm3 (130-400) 04/19/17 18:06 MPV 7.0 fl (7.40-10.4) L 04/19/17 18:06 Absolute Neuts (auto) 10.00 K/uL (1.8-6.8) H 04/19/17 18:06 Absolute Lymphs (auto) 1.80 K/uL (1.0-3.4) 04/19/17 18:06 Absolute Monos (auto) 0.90 K/uL (0.2-0.8) H 04/19/17 18:06 Absolute Eos (auto) 0.40 K/uL (0.0-0.4) 04/19/17 18:06 Absolute Basos (auto) 0.10 K/uL (0.0-0.1) 04/19/17 18:06 Neutrophils % 75.5 % (42.0-78.0) 04/19/17 18:06 Lymphocytes % 13.6 % (20.0-50.0) L 04/19/17 18:06 Monocytes % 7.0 % (2.0-9.0) 04/19/17 18:06 Eosinophils % 3.4 % (1.0-5.0) 04/19/17 18:06 Basophils % 0.5 % (0.0-2.0) 04/19/17 18:06 PT 11.8 SECONDS (9.4-12.5) 04/19/17 18:06 INR 1.040 04/19/17 18:06 PTT (SP) 33.5 SECONDS (25.1-36.5) 04/19/17 18:06 D-Dimer, Quantitative 306 ng/mL (0-230) H* 04/19/17 18:06 Sodium 134 mmol/L (135-145) L 04/19/17 18:06 Potassium 3.5 mmol/L (3.6-5.0) L 04/19/17 18:06 Chloride 95 mmol/L (101-111) L 04/19/17 18:06 Carbon Dioxide 27 mmol/L (21-31) 04/19/17 18:06 Anion Gap 15.5 (12-18) 04/19/17 18:06 BUN 24 mg/dL (7-18) H 04/19/17 18:06 Creatinine 1.38 mg/dL (0.6-1.3) H 04/19/17 18:06 BUN/Creatinine Ratio 17.4 (10-20) 04/19/17 18:06 Random Glucose 99 mg/dL (70-105) 04/19/17 18:06 Serum Osmolality 272.3 mOsm/L (275-295) L 04/19/17 18:06 Calcium 9.7 mg/dL (8.4-10.2) 04/19/17 18:06 Magnesium 1.5 mg/dL (1.8-2.5) L 04/19/17 18:06 Total Bilirubin 0.2 mg/dL (0.2-1.0) 04/19/17 18:06 Direct Bilirubin < 0.1 mg/dL (0-0.2) 04/19/17 18:06 Indirect Bilirubin 0.1 mg/dL (0.2-0.8) L 04/19/17 18:06 AST 23 IU/L (10-42) 04/19/17 18:06 ALT 19 IU/L (10-60) 04/19/17 18:06 Alkaline Phosphatase 79 IU/L (42-121) 04/19/17 18:06 Creatine Kinase 214 IU/L (38-174) H* 04/19/17 18:06 CK-MB (CK-2) 5.0 ng/mL (0.0-4.4) H* 04/19/17 18:06 CK-MB (CK-2) % 2.34 % (0.0-3.5) 04/19/17 18:06 Troponin I < 0.02 ng/mL (0.01-0.05) 04/19/17 18:06 B-Natriuretic Peptide 18.1 pg/ml (0-100) 04/19/17 18:06 Serum Total Protein 7.1 gm/dL (6.4-8.2) 04/19/17 18:06 Albumin 3.6 g/dl (3.2-5.5) 04/19/17 18:06 - EKG/XRAY/CT EKG: Sinus, no ST T wave changes Comments: heart rate76,left atrial enlrgement CT: bilateral renal calculi non obstructing CT Ordered: Yes - chest/abd /pelvis-small region of pna frantz,7mm saccular aneurysm infrarenal Departure - Departure Clinical Impression: Otalgia of left ear, Acute renal insufficiency Chest pain Qualifiers: Chest pain type: unspecified Qualified Code(s): R07.9 - Chest pain, unspecified Pneumonia, organism unspecified Qualifiers: Laterality: left Lung location: upper lobe of lung Qualified Code(s): J18.9 - Pneumonia, unspecified organism Time of Disposition: 23:25 Disposition: Discharge to Home or Self Care Condition: Fair Departure Forms: ED Discharge - Pt. Copy, Patient Portal Self Enrollment Referrals: Fatmata Umaña DO [Primary Care Provider] - 1-2 Weeks Prescriptions: Acetamin W/Cod #3 Tab [Tylenol w/CODEINE #3] 1 ea PO Q6HRS PRN #14 tab PRN Reason: Pain Ciprofloxacin [Cipro] 500 mg PO BID #14 tab Home Medications: Ambulatory Orders RX: Aspirin [Qc Chewable Aspirin Low D] 81 mg PO DAILY 04/08/17 RX: Beclomethasone Dipropionate [Qvar] 40 mcg IN DAILY PRN 04/08/17 RX: DULoxetine HCL [Cymbalta] 30 mg PO DAILY 04/08/17 RX: Gabapentin 600 mg PO BID 04/08/17 RX: HYDROcodone 10MG/APAP 325MG [[place] 10/325] 1 ea PO Q6H PRN 04/08/17 RX: Hydroxyzine HCl 50 mg PO DAILY PRN 04/08/17 RX: Lamotrigine 200 mg PO DAILY 04/08/17 RX: Lisinopril & Hydrochlorothiazi [Lisinopril/Hctz 20-12.5 mg] 1 tab PO BID RX: Magnesium Oxide (mg Supplement [Magnesium Oxide] 400 mg PO DAILY 04/08/17 RX: Metformin HCl 1,000 mg PO BIDFD 04/08/17 RX: Multiple Vitamins W/ Minerals [Multivitamin Adults] 1 tab PO DAILY 04/08/17 RX: [place]-3 Fatty Acids [Fish Oil 1000 mg] 1 cap PO BID 04/08/17 RX: Potassium Gluconate 595 mg PO DAILY 04/08/17 RX: Primidone 375 mg PO BID 04/08/17 RX: Risperidone [Risperdal] 1 mg PO BID 04/08/17 RX: Ropinirole Hydrochloride [Ropinirole HCl] 1 mg PO BEDTIME PRN 04/08/17 RX: Simvastatin 20 mg PO BEDTIME 04/08/17 RX: Varenicline [Chantix] 0.5 mg PO DAILY 04/08/17 RX: Bifidobacterium Infantis [Align] 4 mg PO DAILY 04/13/17 RX: HYDROcodone 10MG/APAP 325MG [[place] 10/325] 1 - 2 ea PO Q6H PRN 04/13/17 levoFLOXacin [Levaquin] 500 mg PO DAILY #4 tab 04/13/17 Acetamin W/Cod #3 Tab [Tylenol w/CODEINE #3] 1 ea PO Q6HRS PRN #14 tab 04/19/17 Ciprofloxacin [Cipro] 500 mg PO BID #14 tab 04/19/17 Additional Instructions: RETURN TO EMERGENCY ROOM NEEDED;FOLLOW UP with primary md 04/22/2017 call for appointment
--- NOTE | 2017-04-19 19:19 | RAD ---
EXAM DESCRIPTION: Chest,1 View CLINICAL HISTORY: pain COMPARISON: April 13, 2017 FINDINGS: Cardiac silhouette is within normal limits. Linear opacities at the right cardiophrenic angle are unchanged compared with the prior exam could be secondary to atelectasis. There is no focal parenchymal or pleural disease. There is no acute osseous process visualized. IMPRESSION: Linear opacities at the right cardiophrenic angle are unchanged compared with the prior exam could be secondary to atelectasis. Resolving infectious process cannot be excluded. Recommend follow-up as indicated. Electronically signed by: Juan Daniel MD 04/19/2017 7:19 PM CDT
[2017-04-19] MEDS ORDERED: SODIUM CHLORIDE 0.9% 1000ML 1,000 ML IVS ONE (19:21)
[2017-04-19] MEDS ORDERED: MAGNESIUM SULFATE PREMIX 2GM 2 GM in PREMIX BAG 1 BAG IVPB ONE (19:22)
[2017-04-19] MEDS ORDERED: MAGNESIUM SULFATE PREMIX 2GM 50 ML IVPB ONE (20:16)
[2017-04-19] MEDS ORDERED: diphenhydrAMINE HCL 50 MG/ML VIAL IM ONE (20:44)
[2017-04-19] MEDS ORDERED: fentaNYL CITRATE INJ 50 MCG/ML AMP IV ONE (20:56)
[2017-04-19] MEDS ORDERED: SODIUM CHLORIDE 0.9% 500ML 500 ML IVS ONE (21:29)
--- NOTE | 2017-04-19 22:58 | CT ---
EXAM DESCRIPTION: Chest w/o Contrast CLINICAL HISTORY: 56 years Male, pain and renal failure COMPARISON: Chest x-ray from today TECHNIQUE: 5 mm axial images through the chest, abdomen and pelvis were performed in the absence as and oral contrast. Coronal and sagittal reconstructions were obtained. This exam was performed according to our departmental dose-optimization program which includes use of Automated Exposure Control, adjustment of the mA and/or kV according to patient size and/or use of iterative reconstruction technique. FINDINGS: Atelectasis involves the RIGHT lung dependently. Tiny tree-in-bud opacities involve the LEFT upper lobe. There is also a calcified LEFT upper lobe granuloma. Trace pericardial fluid is borderline physiologic. No pleural effusion. Vascular calcifications are present with aortic and dense coronary artery involvement. A saccular aneurysm involves the proximal infrarenal abdominal aorta. This eccentric aneurysm measures 7 mm in diameter yielding an overall aortic diameter of 2.3 cm at this level. Minimal gynecomastia is noted. Renal vascular calcifications are present. There are also lower pole moderate in size renal calculi bilaterally and perirenal fat stranding but no hydronephrosis. Ureters are not dilated and cannot be fully tracked. The bladder is well-distended without calculus. The gallbladder is elongated and contains layering gallstones. No pericholecystic stranding is present. Noncontrast images of the liver, spleen and atrophic pancreas are unremarkable. The adrenal glands are hypertrophic. No ascites or small bowel obstruction. Noninflamed appendix. Large amount of stool fills the proximal through the midportion of the colon. Fat-containing inguinal hernias are bilateral but no loop of bowel is contained. No free fluid in the pelvis. There has been previous lumbosacral fusion with bone harvesting. Numbering on this exam is performed so as not fusion is at the L5-S1 level. The RIGHT S1 transpedicular screw passes through the central canal. Anterior wedging involves the L1 vertebral body. This vertebrae is transitional. No acute fracture line is seen. Remote LEFT 11th rib fracture. IMPRESSION: Focal tree-in-bud opacities in the LEFT upper lobe suggesting a small region of pneumonia with airway spread of disease. Aortic atherosclerosis and coronary artery disease. A 7 mm saccular aneurysm involves the infrarenal abdominal aorta. Nonobstructing bilateral renal calculi. No evidence of renal obstruction. Cholelithiasis. Large amount of proximal through mid colonic stool. Old L1 compression fracture with numbering as described above. Electronically signed by: María Hamilton MD 04/19/2017 10:59 PM CDT
[2017-04-19] MEDS ORDERED: HYDROCOD/APAP 10/325 (ER DISP) # 3 tablets PO ONE (23:29)
[2017-04-19 23:48] VITALS: BP 154/89; TEMP 98; O2SAT 98
== END 2017-04-19 23:45 | disposition home or self-care (01) ==
LOC: ER 16:23
DX: J18.9 Pneumonia, unspecified organism (principal); R07.9 Chest pain, unspecified; N28.9 Disorder of kidney and ureter, unspecified; F17.210 Nicotine dependence, cigarettes, uncomplicated; J44.9 Chronic obstructive pulmonary disease, unspecified; I10 Essential (primary) hypertension; E11.9 Type 2 diabetes mellitus without complications; Z79.82 Long term (current) use of aspirin; Z79.899 Other long term (current) drug therapy
CPT/HCPCS: 36415; 71010; 71250; 74176; 80048; 80076; 82550; 82553; 83880; 84443; 84484; 85025; 85379; 85610; 85730; 93005; J1200; J3010; J3475; J7030; J7040

== ENCOUNTER 2017-05-02 12:10 | Observation (INO) | payer MEDICARE ==
--- NOTE | 2017-05-02 12:25 | ED.PDOC ---
History of Present Illness - General Chief Complaint: General Stated Complaint: dizziness Time Seen by Provider: 05/02/17 12:23 Source: patient Exam Limitations: clinical condition - History of Present Illness Initial Comments: Mik Pérez 56 y/o male walk in to [facility] stating that he had been feeling dizzy then after laying on the was so somnolent initially arouse with verbal stimuli but goes back to sleep then afterwards no response to verbal questioning was pinch on his chest stating been confused.He has history of seizures,copd,htn.Last seen 1 1/2 weeks ago for left ear pain was work up no acute abnormalities noted. Timing/Duration: unsure Severity: moderate Worsening Factors: nothing Associated Symptoms: denies symptoms Allergies/Adverse Reactions: Allergies NO KNOWN ALLERGY Allergy (Verified 04/10/17 16:06) Home Medications: Ambulatory Orders Aspirin [Qc Chewable Aspirin Low D] 81 mg PO DAILY 04/08/17 Beclomethasone Dipropionate [Qvar] 40 mcg IN DAILY PRN 04/08/17 DULoxetine HCL [Cymbalta] 30 mg PO DAILY 04/08/17 Gabapentin 600 mg PO BID 04/08/17 HYDROcodone 10MG/APAP 325MG [[place]elanto 10/325] 1 ea PO Q6H PRN 04/08/17 Hydroxyzine HCl 50 mg PO DAILY PRN 04/08/17 Lamotrigine 200 mg PO DAILY 04/08/17 Lisinopril & Hydrochlorothiazi [Lisinopril/Hctz 20-12.5 mg] 1 tab PO BID Magnesium Oxide (mg Supplement [Magnesium Oxide] 400 mg PO DAILY 04/08/17 Metformin HCl 1,000 mg PO BIDFD 04/08/17 Multiple Vitamins W/ Minerals [Multivitamin Adults] 1 tab PO DAILY 04/08/17 [place]-3 Fatty Acids [Fish Oil 1000 mg] 1 cap PO BID 04/08/17 Potassium Gluconate 595 mg PO DAILY 04/08/17 Primidone 375 mg PO BID 04/08/17 Risperidone [Risperdal] 1 mg PO BID 04/08/17 Ropinirole Hydrochloride [Ropinirole HCl] 1 mg PO BEDTIME PRN 04/08/17 Simvastatin 20 mg PO BEDTIME 04/08/17 Varenicline [Chantix] 0.5 mg PO DAILY 04/08/17 Bifidobacterium Infantis [Align] 4 mg PO DAILY 04/13/17 HYDROcodone 10MG/APAP 325MG [[place] 10/325] 1 - 2 ea PO Q6H PRN 04/13/17 levoFLOXacin [Levaquin] 500 mg PO DAILY #4 tab 04/13/17 Acetamin W/Cod #3 Tab [Tylenol w/CODEINE #3] 1 ea PO Q6HRS PRN #14 tab 04/19/17 Ciprofloxacin [Cipro] 500 mg PO BID #14 tab 04/19/17 Review of Systems - Review of Systems Constitutional: States: no symptoms reported EENTM: States: no symptoms reported Respiratory: States: no symptoms reported Cardiology: States: no symptoms reported Gastrointestinal/Abdominal: States: no symptoms reported Genitourinary: States: no symptoms reported Musculoskeletal: States: no symptoms reported Skin: States: no symptoms reported Neurological: States: other - dizziness Endocrine: States: no symptoms reported Past Medical History (General) - Patient Medical History Hx Seizures: Yes Hx Stroke: No Hx Dementia: No Hx Asthma: No Hx of COPD: Yes Hx Cardiac Disorders: No Hx Congestive Heart Failure: No Hx Pacemaker: No Hx Hypertension: Yes Hx Thyroid Disease: No Hx Diabetes: Yes Hx Gastroesophageal Reflux: No Hx Renal Disease: No Hx Cancer: No Hx of HIV: No Hx Hepatitis C: No Hx MRSA: No Surgical History: other - ventral hernia repair,lumbar,knee - Vaccination History Hx Tetanus, Diphtheria Vaccination: No Hx Influenza Vaccination: Yes Hx Pneumococcal Vaccination: Yes - Social History Hx Tobacco Use: Yes Years Tobacco Use: 40 Cigarettes Packs Per Day: 30 Hx Chewing Tobacco Use: No Hx Alcohol Use: No Hx Substance Use: No Hx Substance Use Treatment: No Hx Depression: No Hx Physical Abuse: No Hx Emotional Abuse: No Hx Suspected Abuse: No - Activities of Daily Living Patient Lives Alone: Yes Home Health Agency (if applicable): None Grooming Ability: Independent Eating (Feeding) Ability: Independent Toileting Ability: Independent - Female History Patient : No Family Medical History - Family History Father Family History: Unknown Living Status: Hx Family Asthma: No Hx Family Congestive Heart Failure: No Hx Family Hypertension: No Hx Family Stroke: No Hx Cardiac Disease: Yes Hx Family Diabetes: No Hx Family Cancer: Yes - melanoma -dad Hx Family;Other: alch hx Physical Exam - Physical Exam General Appearance: No apparent distress, Lethargic Eye Exam: right other - slighht droop eyelid but ablee to open it up, bilateral normal Ears, Nose, Throat: hearing grossly normal, normal ENT inspection, normal pharynx, other Neck: non-tender, full range of motion, supple Respiratory: chest non-tender, lungs clear, normal breath sounds, no respiratory distress Cardiovascular/Chest: normal peripheral pulses, regular rate, rhythm, no edema Peripheral Pulses: radial,right: 2+, radial,left: 2+ Gastrointestinal/Abdominal: normal bowel sounds, non tender, soft, no organomegaly Back Exam: normal inspection, no CVA tenderness Extremity: normal range of motion, non-tender, normal inspection Neurologic: no motor/sensory deficits, disoriented x 3 - place ,time Skin Exam: normal color, warm/dry Lymphatic: no adenopathy Progress - Progress Progress: 05/02/17 14:57 Vital Signs - 8 hr 05/02/17 05/02/17 05/02/17 12:11 12:27 13:11 Temperature 96.8 F L Pulse Rate 86 70 Pulse Rate [ 85 86 70 Apical] Respiratory 20 20 20 Rate Blood Pressure 81/55 98/62 103/56 [Left Arm] O2 Sat by Pulse 94 L 92 L 100 Oximetry 05/02/17 05/02/17 14:14 14:53 Temperature 96.8 F L Pulse Rate 67 Pulse Rate [ 67 84 Apical] Respiratory 20 20 Rate Blood Pressure 99/54 133/78 [Left Arm] O2 Sat by Pulse 100 94 L Oximetry 05/02/17 12:27 URINE DRUG SCREEN, 7 ASSAY Stat URINALYSIS Stat 05/02/17 12:30 EKG STAT 05/02/17 14:54 occult blood [FECAL OCCULT BLOOD] Stat 05/02/17 14:56 Sodium Chloride 0.9% 1000ML [Ns 1000 ml] 1,000 ml IVS .QD 05/03/17 09:00 Thiamine HCl Inj 100 mg Sodium Chloride 0.9% 100Ml [NS (NACL 0.9%) 100ml] 100 ml IVPB DAILY Laboratory Results - last 24 hr 05/02/17 05/02/17 05/02/17 13:00 13:00 13:00 WBC 12.3 H RBC 4.54 L Hgb 13.0 L Hct 38.5 L MCV 84.9 MCH 28.6 MCHC 33.8 RDW 14.1 Plt Count 359 MPV 7.1 L Absolute Neuts (auto) 8.80 H Absolute Lymphs (auto) 2.30 Absolute Monos (auto) 0.80 Absolute Eos (auto) 0.30 Absolute Basos (auto) 0.10 Neutrophils % 71.7 Lymphocytes % 18.9 L Monocytes % 6.4 Eosinophils % 2.5 Basophils % 0.5 PT 10.9 INR 0.960 PTT (SP) 32.3 D-Dimer, Quantitative < 230 Sodium 128 L Potassium 4.2 Chloride 96 L Carbon Dioxide 22 Anion Gap 14.2 BUN 19 H Creatinine 1.31 H BUN/Creatinine Ratio 14.5 POC Glucose Random Glucose 82 Serum Osmolality 258.4 L Lactic Acid Calcium 9.2 Magnesium 1.3 L Total Bilirubin < 0.2 L Direct Bilirubin < 0.1 Indirect Bilirubin 0.1 L AST 26 ALT 21 Alkaline Phosphatase 64 Creatine Kinase 202 H* CK-MB (CK-2) 8.8 H* CK-MB (CK-2) % 4.36 H Troponin I < 0.02 B-Natriuretic Peptide 5.9 Serum Total Protein 6.7 Albumin 4.0 Ethyl Alcohol < 5.40 05/02/17 05/02/17 13:20 13:35 WBC RBC Hgb Hct MCV MCH MCHC RDW Plt Count MPV Absolute Neuts (auto) Absolute Lymphs (auto) Absolute Monos (auto) Absolute Eos (auto) Absolute Basos (auto) Neutrophils % Lymphocytes % Monocytes % Eosinophils % Basophils % PT INR PTT (SP) D-Dimer, Quantitative Sodium Potassium Chloride Carbon Dioxide Anion Gap BUN Creatinine BUN/Creatinine Ratio POC Glucose 61 L Random Glucose Serum Osmolality Lactic Acid 1.9 Calcium Magnesium Total Bilirubin Direct Bilirubin Indirect Bilirubin AST ALT Alkaline Phosphatase Creatine Kinase CK-MB (CK-2) CK-MB (CK-2) % Troponin I B-Natriuretic Peptide Serum Total Protein Albumin Ethyl Alcohol - EKG/XRAY/CT EKG: Tachy Comments: heart rate 98;incomplete right bundle branch block XRAY: chest - atelectatic infiltrate left lung base/radiologist CT Ordered: Yes - no infarct or hemorrhage/radiologist Departure - Departure Clinical Impression: Dizziness, Hyponatremia with decreased serum osmolality, Renal insufficiency Altered mental status Qualifiers: Altered mental status type: disorientation Qualified Code(s): R41.0 - Disorientation, unspecified Time of Disposition: 15:30 - D/W Susanne Kessler-ANP/Hospitalist Disposition: Admit Patient Condition: Fair Referrals: Fatmata Umaña DO [Primary Care Provider] - 1-2 Weeks Home Medications: Ambulatory Orders Aspirin [Qc Chewable Aspirin Low D] 81 mg PO DAILY 04/08/17 Beclomethasone Dipropionate [Qvar] 40 mcg IN DAILY PRN 04/08/17 DULoxetine HCL [Cymbalta] 30 mg PO DAILY 04/08/17 Gabapentin 600 mg PO BID 04/08/17 HYDROcodone 10MG/APAP 325MG [[place] 10/325] 1 ea PO Q6H PRN 04/08/17 Hydroxyzine HCl 50 mg PO DAILY PRN 04/08/17 Lamotrigine 200 mg PO DAILY 04/08/17 Lisinopril & Hydrochlorothiazi [Lisinopril/Hctz 20-12.5 mg] 1 tab PO BID Magnesium Oxide (mg Supplement [Magnesium Oxide] 400 mg PO DAILY 04/08/17 Metformin HCl 1,000 mg PO BIDFD 04/08/17 Multiple Vitamins W/ Minerals [Multivitamin Adults] 1 tab PO DAILY 04/08/17 [place]-3 Fatty Acids [Fish Oil 1000 mg] 1 cap PO BID 04/08/17 Potassium Gluconate 595 mg PO DAILY 04/08/17 Primidone 375 mg PO BID 04/08/17 Risperidone [Risperdal] 1 mg PO BID 04/08/17 Ropinirole Hydrochloride [Ropinirole HCl] 1 mg PO BEDTIME PRN 04/08/17 Simvastatin 20 mg PO BEDTIME 04/08/17 Varenicline [Chantix] 0.5 mg PO DAILY 04/08/17 Bifidobacterium Infantis [Align] 4 mg PO DAILY 04/13/17 HYDROcodone 10MG/APAP 325MG [[place] 10/325] 1 - 2 ea PO Q6H PRN 04/13/17 levoFLOXacin [Levaquin] 500 mg PO DAILY #4 tab 04/13/17 Acetamin W/Cod #3 Tab [Tylenol w/CODEINE #3] 1 ea PO Q6HRS PRN #14 tab 04/19/17 Ciprofloxacin [Cipro] 500 mg PO BID #14 tab 04/19/17 Decision To Admit - Decistion To Admit Decision to Admit Reason: Admit from ER Decision to Admit Date: 05/02/17 Decision to Admit Time: 15:27
[2017-05-02] MEDS ORDERED: SODIUM CHLORIDE 0.9% 1000ML 1,000 ML IVS ONE (13:10)
--- NOTE | 2017-05-02 13:18 | CT ---
EXAM DESCRIPTION: Head CLINICAL HISTORY: ams COMPARISON: 04/11/2017 TECHNIQUE: Multiple axial images of the head without contrast. This exam was performed according to our departmental dose-optimization program, which includes automated exposure control, adjustment of the mA and/or kV according to patient size and/or use of iterative reconstruction technique. FINDINGS: There is no CT evidence of intracranial hemorrhage, mass effect, or large territory infarction. Mild generalized volume loss is present. Mild patchy supratentorial white matter hypodensities are again demonstrated. There are no abnormal extra-axial fluid collections. Calcific plaque in the visualized arteries. There is no acute calvarial defect. Mild mucosal thickening in the maxillary sinuses and ethmoid air cells. The mastoid air cells are clear. IMPRESSION: 1. No CT evidence of an acute intracranial abnormality. If there is concern for an acute or subacute infarct, consider follow-up MRI. 2. Mild senescent changes. Electronically signed by: Aneesh Thacker MD 05/02/2017 1:17 PM CDT
[2017-05-02] MEDS ORDERED: DEXTROSE 50% 25 GM/50 ML SYG IV ONE ×2 (13:22)
[2017-05-02] MEDS ORDERED: NALOXONE HCL INJ 0.4 MG/ML VIAL IV ONE (13:23)
--- NOTE | 2017-05-02 13:33 | RAD ---
EXAM DESCRIPTION: Chest,1 View CLINICAL HISTORY: pain COMPARISON: 19 April 2017 TECHNIQUE: AP portable chest FINDINGS: Minimal atelectatic type infiltrate is observed at the left lung base. The right chest is clear. The heart is within range of normal. IMPRESSION: Minimal atelectatic type infiltrate is observed at the left lung base. Electronically signed by: Moiz Jane MD 05/02/2017 1:32 PM CDT
[2017-05-02] MEDS ORDERED: THIAMINE HCL INJ 100 MG/ML VIAL ONE (14:35)
[2017-05-02] MEDS ORDERED: NALOXONE HCL INJ 0.4 MG/ML VIAL ONE (14:36)
[2017-05-02] MEDS ORDERED: SODIUM CHLORIDE 0.9% 100ML 100 ML IVPB ONE (14:36)
[2017-05-02] MEDS: THIAMINE HCL INJ 100 MG in SODIUM CHLORIDE 0.9% 100ML 100 ML IVPB SCH (14:38)
[2017-05-02] MEDS ORDERED: SODIUM CHLORIDE 0.9% 1000ML 1,000 ML IVS PRN (14:56)
--- NOTE | 2017-05-02 16:42 | HP ---
SUPERVISING PHYSICIAN: John Russell MD CHIEF COMPLAINT: Altered mental status and dizziness. HISTORY OF PRESENT ILLNESS: This is a 56-year-old male patient who reportedly had been at the [employer] and was acting disoriented and stumbling around. Someone from the [employer] brought him to the Emergency Room. Initially, he just complained of dizziness and later while he was in the Emergency Room, he became very somnolent and was difficult to arouse except by noxious stimuli. He was given several doses of Narcan. His urine drug screen was positive for barbiturates, positive for benzodiazepines, and positive for cannabinoids. His CT of the head per radiologic interpretation showed no CT evidence of of an acute intracranial abnormality and mild senescent changes. His chest x-ray showed minimal atelectatic type infiltrate in the left lung base. His WBCs were elevated at 12.3 with a hemoglobin 13 and hematocrit 38.5. Sodium 128, potassium 4.2, chloride 96, carbon dioxide 22, BUN 19, creatinine 1.31. Glucose 61 and was later 77. Serum osmolality 258.4. Lactic acid 1.9. Calcium 9.2, magnesium 1.3, total bilirubin less than 0.2. AST 26, ALT 21, alkaline phosphatase 64, creatinine kinase 202. CK-MB 8.8, troponin less than 0.02, BNP 5.9. Urine showed trace intact blood, 5 to 10 RBCs and 3 to 5 WBCs. Stool guaiac was positive. It is to be noted that he had just bee in the hospital and was admitted on 04/07/17 for left lower lobe pneumonia and there was a question at that time whether he had taken too much medication due to his altered mental status at that time. According to the patient, he had just recently seen his doctor in [place], who is Dr. Umaña, who just recently filled his pain medications, but he had not been able to fill them yet as they were not due. He also said he thought he had a seizure about three days ago, but he had seen Dr. Umaña after the seizure and he though she changed some of his seizure medications. I was call for an admission. PAST MEDICAL HISTORY: 1. Type 2 diabetes mellitus. 2. Lumbar disc disease. 3. Depression. 4. Hypertension. 5. Seizure disorder. 6. Chronic obstructive pulmonary disease. 7. Bipolar disorder with depression. 8. Memory loss. 9. Hyperlipidemia. 10. Restless leg syndrome. PAST SURGICAL HISTORY: 1. Arthroscopy of the left knee times three. 2. Hernia repair times three. 3. Spinal surgery of the lumbar region times three. 4. Eye surgery. OUTPATIENT MEDICATIONS: Per the EMR and awaiting verification. FAMILY HISTORY: Noncontributory. SOCIAL HISTORY: He is . He has one child. He currently smokes every day approximately one pack of cigarettes per day. He denies any ETOH or illicit drug use. REVIEW OF SYSTEMS: GENERAL: Denies chills, fever or weight changes. HEENT: Positive for sinus symptoms, sneezing, but denies ear pain, vision changes or sore throat. RESPIRATORY: Positive for shortness of breath and coughing as well as occasional wheezing. CARDIAC: Denies chest pain, palpitations or tachycardia. GASTROINTESTINAL: Denies nausea, vomiting, diarrhea, or abdominal pain. GENITOURINARY: Denies hematuria, dysuria or polyuria. NEUROLOGIC: Positive for weakness, dizziness and seizures. SKIN: Negative for rashes or lesions. PHYSICAL EXAMINATION: VITAL SIGNS: Afebrile. Heart rate 64. Blood pressure 123/73. Respiratory rate 20. O2 saturation 93% on room air. GENERAL: This is a 56-year-old, male patient who is sitting up in his hospital bed and eating his evening meal. HEENT: Normocephalic, atraumatic. Pupils are equal and reactive. Oropharynx is clear. Oral mucous membranes are moist. NECK: Supple without mass. RESPIRATORY: Diminished breath sounds at the bases, otherwise clear to auscultation. CHEST: There is equal rise and fall of the chest with inspiration and expiration. CARDIOVASCULAR: Regular rate and rhythm. ABDOMEN: Soft, nondistended, nontender. Bowel sounds are positive. EXTREMITIES: No cyanosis, clubbing or edema. NEUROLOGIC: He awake. He is alert and oriented times three. He does have a slight facial droop on the left side, but his tongue is midline and his deliver driver are equal bilaterally. LABORATORY: Labs and films are as per the history of present illness. ASSESSMENT: 1. Hyponatremia. 2. Altered mental status, may be due to over medication and/or hyponatremia and/or seizure disorder as he has an extensive history of both seizure disorder and over medication. 3. Hypomagnesemia. 4. Leukocytosis, may be secondary to an infectious process, question left lower lobe pneumonia that may or may not have continued treatment as an outpatient. 5. Poor medical compliance. 6. Chronic obstructive pulmonary disease. 7. Chronic tobacco abuse. 8. Chronic pain syndrome on multiple pain medications. He sees Dr. Umaña in [place]. 9. Chronic renal failure. 10. Diabetes mellitus, type 2. 11. Chronic low back pain secondary to lumbar disc disease. PLAN: We will place the patient in observation. We will monitor his neurologic status and restart his home medications. I have given him some magnesium as well as given him IV fluids of normal saline. We will start him on a nicotine patch. I will also consult [employer]. I believe he has [facility], so we will contact them and see if we can get an updated medication list. I have repeated labs in the morning. We will follow the patient closely and treat as medically indicated. Dr. Russell is the collaborating physician and available for consultation. #[id number] [facility]
[2017-05-02] MEDS ORDERED: SODIUM CHLORIDE 0.9% (FLUSH) 10 ML SYG IV PRN (18:08)
[2017-05-02] MEDS ORDERED: ONDANSETRON INJ 4 MG/2 ML VIAL IV PRN (18:10)
[2017-05-02] MEDS ORDERED: ALBUTEROL SULFATE 2.5 MG/3 ML VIAL NEB PRN (18:10)
[2017-05-02] MEDS ORDERED: MAGNESIUM SULFATE PREMIX 2GM 2 GM in PREMIX BAG 1 BAG IVPB ONE (18:13)
--- NOTE | 2017-05-02 18:16 | PCM.CORE ---
Physician DVT/VTE - Prophylaxis Currently: Patient already on anticoagulation therapy - Nurse DVT Assessment & Total Each Risk Factor Represents 1 Point: Age 41-60 DVT Assessment Score: 1 - 3-4 High Risk Treatments: Early Ambulation *, Sequential Compression Device
[2017-05-02] MEDS ORDERED: MAGNESIUM SULFATE PREMIX 2GM 50 ML IVPB ONE (18:28)
[2017-05-02] MEDS ORDERED: IV SET AND CAP CHANGE INJ INJ SCH (18:30)
[2017-05-02] MEDS ORDERED: PANTOPRAZOLE SODIUM IV 40 MG VIAL IV SCH (18:30)
[2017-05-02] MEDS ORDERED: ENOXAPARIN SODIUM 40 MG/0.4 ML SYG SUBCU SCH (18:30)
[2017-05-02] MEDS ORDERED: DEXTROSE 50% 25 GM/50 ML SYG IV PRN (18:51)
[2017-05-02] MEDS ORDERED: GLUCAGON INJ 1 MG VIAL SUBCU PRN (18:51)
[2017-05-02] MEDS ORDERED: NICOTINE PATCH 21 MG TD SCH (19:00)
[2017-05-02] MEDS ORDERED: MORPHINE SULFATE INJ 10 MG/ML VIAL IV ONE (19:15)
[2017-05-02] MEDS: SODIUM CHLORIDE 0.9% 1000ML 1,000 ML IVS PRN (19:28)
[2017-05-02] MEDS: IPRATROPIUM/ALBUTEROL 3 ML VIAL INH SCH (19:35)
[2017-05-02] MEDS ORDERED: hydrOXYzine HCl 25 MG TAB PO PRN (20:17)
[2017-05-02] MEDS ORDERED: PRIMIDONE 50 MG TAB PO ONE (20:40)
[2017-05-02] MEDS ORDERED: GABAPENTIN 300 MG CAP ONE (20:40)
[2017-05-02] MEDS ORDERED: LISINOPRIL 10 MG TAB ONE (20:40)
[2017-05-02] MEDS ORDERED: hydroCHLOROthiazide 12.5 MG CAP ONE (20:40)
[2017-05-02] MEDS: risperiDONE 1 MG TAB PO SCH (20:47)
[2017-05-02] MEDS: SIMVASTATIN 20 MG TAB PO SCH (20:48)
[2017-05-02] MEDS ORDERED: PRIMIDONE PO SCH (21:00)
[2017-05-02] MEDS ORDERED: NON-FORMULARY MEDICATION 1 EA MIS (Gabapentin [Gabapentin] 600 MG) PO SCH (21:00)
[2017-05-02] MEDS ORDERED: NON-FORMULARY MEDICATION 1 EA MIS (Lisinopril & Hydrochlorothiazi [Lisinopril/Hctz 20-12.5 PO SCH (21:00)
[2017-05-02] MEDS: INSULIN LISPRO 100 UNITS/ML PEN SUBCU SCH (21:07)
[2017-05-03] MEDS: HYDROcodone 10MG/APAP 325MG 1 EA TAB PO PRN ×5 (00:18→22:51)
[2017-05-03] MEDS: SODIUM CHLORIDE 0.9% 1000ML 1,000 ML IVS PRN (03:47)
[2017-05-03] MEDS: INSULIN LISPRO 100 UNITS/ML PEN SUBCU SCH ×4 (07:26→20:58)
[2017-05-03] MEDS: metFORMIN HCL 500 MG TAB PO SCH ×2 (07:27→15:18)
[2017-05-03] MEDS ORDERED: SODIUM CHLORIDE 0.9% 100ML 100 ML IVPB ONE (08:01)
[2017-05-03] MEDS ORDERED: THIAMINE HCL INJ 100 MG/ML VIAL ONE (08:01)
[2017-05-03] MEDS: THIAMINE HCL INJ 100 MG in SODIUM CHLORIDE 0.9% 100ML 100 ML IVPB SCH (08:09)
[2017-05-03] MEDS: LISINOPRIL 10 MG TAB PO SCH ×2 (08:52→20:07)
[2017-05-03] MEDS: PRIMIDONE 50 MG TAB PO SCH ×2 (08:53→20:08)
[2017-05-03] MEDS: IPRATROPIUM/ALBUTEROL 3 ML VIAL INH SCH ×4 (08:53→20:23)
[2017-05-03] MEDS: DULoxetine HCL 30 MG CAP PO SCH (08:53)
[2017-05-03] MEDS: GABAPENTIN 300 MG CAP PO SCH ×2 (08:53→20:06)
[2017-05-03] MEDS: risperiDONE 1 MG TAB PO SCH ×2 (08:53→20:07)
[2017-05-03] MEDS: MAGNESIUM OXIDE 400 MG TAB PO SCH (08:53)
[2017-05-03] MEDS: lamoTRIgine 100 MG TAB PO SCH (08:53)
[2017-05-03] MEDS: hydroCHLOROthiazide 12.5 MG CAP PO SCH ×2 (08:53→20:07)
[2017-05-03] MEDS: POTASSIUM GLUCONATE 595 MG PO SCH (09:04)
[2017-05-03] MEDS ORDERED: MAGNESIUM SULFATE PREMIX 2GM 2 GM in PREMIX BAG 1 BAG IVPB ONE (11:17)
[2017-05-03] MEDS ORDERED: MAGNESIUM SULFATE PREMIX 2GM 50 ML IVPB ONE (11:29)
--- NOTE | 2017-05-03 11:33 | PN ---
SUPERVISING PHYSICIAN: John Russell MD DATE: 05/03/17 SUBJECTIVE: The patient is sitting up in his hospital bed. He is eating his breakfast. He has no complaints of shortness of breath, dizziness, weakness, chest pain, nausea or vomiting. He actually says he feels much better today. OBJECTIVE: VITAL SIGNS: Afebrile. Heart rate 68. Blood pressure 150/83. Respiratory rate 18. O2 saturation 93% on room air. LUNGS: Clear to auscultation bilaterally. He is slightly diminished at the bases. CARDIAC: Regular rate and rhythm. ABDOMEN: Soft, nontender, nondistended. Bowel sounds are positive. EXTREMITIES: No cyanosis, clubbing or edema. NEUROLOGIC: Awake, alert and oriented times three. He continues to have a very , very slight left facial droop, but is improved since yesterday. LABORATORY: White count normalized to 10.6, hemoglobin 12.1, hematocrit 35.9. Sodium improved to 132, potassium 3.6, chloride 102, carbon dioxide 23, serum osmolality 264.2, magnesium 1.6. All other labs and films have been reviewed via the EMR. ASSESSMENT: 1. Hyponatremia, improving. 2. Altered mental status, may be due to over medication and/or hyponatremia and/or seizure disorder as he has an extensive history of both seizure disorder and over medication. 3. Hypomagnesemia, improved. 4. Leukocytosis, may be secondary to an infectious process, question left lower lobe pneumonia that may or may not have continued treatment as an outpatient. 5. Poor medical compliance. 6. Chronic obstructive pulmonary disease. 7. Chronic tobacco abuse. 8. Chronic pain syndrome on multiple pain medications. He sees Dr. Umaña in [place]. 9. Chronic renal failure. 10. Diabetes mellitus, type 2. 11. Chronic low back pain secondary to lumbar disc disease. PLAN: We will continue present supportive care. I will give him an additional dose of magnesium today. I will stop his IV fluids for now and restrict his oral fluids. I will repeat his labs in the morning. Hopefully he can be discharged tomorrow. [facility] has also come up to see him today. He will be discharged to home [facility]. We will continue to monitor the patient closely and followup as needed. Dr. Russell is the collaborating physician and available for consultation. #[id number] [facility]
[2017-05-03] MEDS: PANTOPRAZOLE SODIUM TAB 40 MG PO SCH (11:56)
[2017-05-03] MEDS ORDERED: NICOTINE PATCH 21 MG TD ONE (18:28)
[2017-05-03] MEDS: NICOTINE PATCH 21 MG TD SCH ×2 (18:31→20:09)
[2017-05-03] MEDS ORDERED: ENOXAPARIN SODIUM 40 MG/0.4 ML SYG SUBCU ONE (19:34)
[2017-05-03] MEDS: SODIUM CHLORIDE 0.9% (FLUSH) 10 ML SYG IV SCH (20:06)
[2017-05-03] MEDS: SIMVASTATIN 20 MG TAB PO SCH (20:07)
[2017-05-03] MEDS ORDERED: ENOXAPARIN SODIUM 40 MG/0.4 ML SYG SUBCU SCH (21:00)
[2017-05-04] MEDS: HYDROcodone 10MG/APAP 325MG 1 EA TAB PO PRN ×3 (02:45→13:17)
[2017-05-04] MEDS ORDERED: THIAMINE HCL INJ 100 MG/ML VIAL ONE (04:37)
[2017-05-04] MEDS ORDERED: SODIUM CHLORIDE 0.9% 100ML 100 ML IVPB ONE (04:37)
[2017-05-04] MEDS: PANTOPRAZOLE SODIUM TAB 40 MG PO SCH (05:52)
[2017-05-04] MEDS: INSULIN LISPRO 100 UNITS/ML PEN SUBCU SCH ×2 (07:12→11:30)
[2017-05-04] MEDS: IPRATROPIUM/ALBUTEROL 3 ML VIAL INH SCH ×2 (08:13→14:27)
[2017-05-04] MEDS: lamoTRIgine 100 MG TAB PO SCH (08:41)
[2017-05-04] MEDS: metFORMIN HCL 500 MG TAB PO SCH (08:41)
[2017-05-04] MEDS: MAGNESIUM OXIDE 400 MG TAB PO SCH (08:41)
[2017-05-04] MEDS: hydroCHLOROthiazide 12.5 MG CAP PO SCH (08:42)
[2017-05-04] MEDS: DULoxetine HCL 30 MG CAP PO SCH (08:42)
[2017-05-04] MEDS: LISINOPRIL 10 MG TAB PO SCH (08:42)
[2017-05-04] MEDS: GABAPENTIN 300 MG CAP PO SCH (08:42)
[2017-05-04] MEDS: PRIMIDONE 50 MG TAB PO SCH (08:44)
[2017-05-04] MEDS: risperiDONE 1 MG TAB PO SCH (08:44)
[2017-05-04] MEDS: POTASSIUM GLUCONATE 595 MG PO SCH (08:46)
[2017-05-04] MEDS: SODIUM CHLORIDE 0.9% (FLUSH) 10 ML SYG IV SCH (09:05)
[2017-05-04] MEDS: THIAMINE HCL INJ 100 MG in SODIUM CHLORIDE 0.9% 100ML 100 ML IVPB SCH (09:05)
[2017-05-04 10:29] VITALS: BP 138/78; TEMP 97.7; O2SAT 94
[2017-05-04] MEDS ORDERED: MAGNESIUM SULFATE PREMIX 2GM 2 GM in PREMIX BAG 1 BAG IVPB ONE (11:34)
[2017-05-04] MEDS ORDERED: MAGNESIUM SULFATE PREMIX 2GM 50 ML IVPB ONE (12:21)
--- NOTE | 2017-05-04 14:00 | DS ---
SUPERVISING PHYSICIAN: John Russell MD DISCHARGE DIAGNOSIS: 1. Hyponatremia, improving. 2. Altered mental status, may be due to over medication and/or hyponatremia and/or seizure disorder as he has an extensive history of both seizure disorder and over medication. 3. Hypomagnesemia, improved. 4. Leukocytosis, may be secondary to an infectious process, question left lower lobe pneumonia that may or may not have continued treatment as an outpatient. 5. Poor medical compliance. 6. Chronic obstructive pulmonary disease. 7. Chronic tobacco abuse. 8. Chronic pain syndrome on multiple pain medications. He sees Dr. Umaña in [place]. 9. Chronic renal failure. 10. Diabetes mellitus, type 2. 11. Chronic low back pain secondary to lumbar disc disease. HISTORY OF PRESENT ILLNESS: This is a 56-year-old male patient who had been at the [facility] on the date of admission and was acting disoriented and stumbling around. Someone from the [employer] brought him to the Emergency Room. Initially he just complained of dizziness, but later became very somnolent and was very difficult to arouse. He was given several doses of Narcan. He has an extensive history of back pain as well as chronic pain syndrome and is on multiple pain medications due to his chronic pain issues. His urine drug screen was positive for barbiturates, benzodiazepines and cannabinoids. He had a CT of his head done and per radiologic interpretation showed no evidence of acute intracranial abnormality with senescent changes. He is frequently admitted to the hospital for chronic obstructive pulmonary disease. He was recently in for pneumonia. He is also frequently admitted due to dizziness, weakness, and somnolence that may be related to his pain medications. He had mild leukocytosis in the Emergency Room at 12,300. His hemoglobin was 13, hematocrit 38.5. Sodium 128. He does have a history of hyponatremia. Potassium was 4.2, chloride 96, carbon dioxide 22, BUN 19, creatinine 1.31. Glucose was 61. Later it was 77. Lactic acid was 1.9. Magnesium 1.3. He was placed in the hospital under observation. HOSPITAL COURSE: His somnolence resolved. He has been awake and alert and walking in the halls of the hospital. Sodium has improved to 132 today. Magnesium is still slightly low at 1.6, but his other chemistries approximate his baseline. DISCHARGE PLAN: The patient will be discharged home in stable condition. He has [facility]. I believe most of his somnolence and dizziness is related to his pain medications. He is to have a followup appointment with Dr. Umaña as soon as possible to review his pain medications. I have also talked to [facility] and they will try to facilitate the evaluation of his pain medications. He is to resume his previous diet as well as increase his activity as tolerated. He is to call Dr. Umaña or return to the hospital if he has any further problems or complications. DISCHARGE MEDICATIONS: 1. Chantix. 2. Metformin. 3. Hydrocodone. 4. Gabapentin. 5. Simvastatin. 6. Lisinopril/hydrochlorothiazide. 7. Hydroxyzine. 8. Qvar. 9. Risperdal. 10. Lamotrigine. 11. Ropinirole. 12. Fish oil. 13. Multivitamins. 14. Primidone. 15. Potassium gluconate. 16. Aspirin. 17. Cymbalta. 18. Magnesium oxide. 19. Align. Dr. Russell is the collaborating physician and available for consultation. #[id number] [facility]
== END 2017-05-04 13:40 | disposition home health service (06) ==
LOC: ER 12:10 → MS 16:41
PROVIDERS: ADMIT Nurse Practitioner Acute Care; ATTEND Nurse Practitioner Acute Care
DX: E87.1 Hypo-osmolality and hyponatremia (principal); R41.82 Altered mental status, unspecified; E83.42 Hypomagnesemia; G40.909 Epilepsy, unspecified, not intractable, without status epilepticus; D72.829 Elevated white blood cell count, unspecified; J44.9 Chronic obstructive pulmonary disease, unspecified; F17.210 Nicotine dependence, cigarettes, uncomplicated; G89.4 Chronic pain syndrome; I12.9 Hypertensive chronic kidney disease with stage 1 through stage 4 chronic kidney disease, or unspecified chronic kidney disease; N18.9 Chronic kidney disease, unspecified; E11.22 Type 2 diabetes mellitus with diabetic chronic kidney disease; M51.36 Other intervertebral disc degeneration, lumbar region; R42 Dizziness and giddiness; I45.10 Unspecified right bundle-branch block; F31.9 Bipolar disorder, unspecified; E78.5 Hyperlipidemia, unspecified; G25.81 Restless legs syndrome; Z91.14 Patient's other noncompliance with medication regimen; Z66 Do not resuscitate; Z79.84 Long term (current) use of oral hypoglycemic drugs; Z79.82 Long term (current) use of aspirin; Z79.891 Long term (current) use of opiate analgesic; Z79.899 Other long term (current) drug therapy
CPT/HCPCS: 36415 ×5; 36416 ×7; 70450; 71010; 80048; 80053 ×2; 80076; 80307; 80320; 81001; 82270; 82550; 82553; 82948 ×9; 83605; 83735 ×2; 83880; 84484; 85025 ×3; 85379; 85610; 85730; 87040 ×2; 93005; 94640 ×6; 94760 ×3; 96361; 96365; 96366 ×2; 96367; 96372 ×2; 96375 ×2; 96376; 99284; 99406; G0378; J1650 ×2; J1815; J2270; J2310; J3411 ×3; J3475 ×3; J7030 ×3; J7050 ×3; J7620 ×6; J7799

== ENCOUNTER 2017-05-15 20:20 | Observation (INO) | payer MEDICARE, MEDICAID ==
[2017-05-15] MEDS ORDERED: MULTIPLE VITAMIN INJ 10 ML, THIAMINE HCL INJ 100 MG in SODIUM CHLORIDE 0.9% 1000ML 1,00... IV ONE (20:30)
[2017-05-15] MEDS ORDERED: THIAMINE HCL INJ 100 MG/ML VIAL ONE (20:50)
[2017-05-15] MEDS ORDERED: SODIUM CHLORIDE 0.9% 1000ML 1,000 ML ONE (20:50)
[2017-05-15] MEDS ORDERED: MULTIPLE VITAMIN 10 ML VIAL ONE (20:51)
--- NOTE | 2017-05-15 21:21 | CT ---
PROCEDURE: Head HISTORY: ams Indication: Same as above Comparison: 05/02/2017 Technique: CT of the head was done without intravenous contrast was done in the orthogonal planes. This exam was performed according to our departmental dose-optimization program, which includes automated exposure control, adjustment of the mA and/or KV according to the patient's size and/or use of iterative reconstruction technique. FINDINGS: There is no intracranial hemorrhage, midline shift mass effect or acute focal infarct. If clinical concern exists regarding an acute ischemic/vascular pathology being responsible for patient's symptomatology, an MRI of the brain is more sensitive than the current study, in ruling out such a possibility. There is good daley/white matter differentiation. The ventricular system is normal. The mastoid air cells are unremarkable . The paranasal sinuses show right maxillary chronic sinusitis . There is no visualization of acute fractures involving the calvarium or the skull base. IMPRESSION: There is no acute intracranial abnormality. Electronically signed by: Zhen Ellsworth MD 05/15/2017 9:20 PM CDT Workstation: [id number]
--- NOTE | 2017-05-15 21:22 | RAD ---
PROCEDURE: XR CHEST 1 VIEW HISTORY: ams COMPARISON: 05/02/2017 TECHNIQUE: Single projection of the chest was done. FINDINGS: The lung mcclure are well inflated . There are no discrete airspace infiltrates, pneumothoraces or pleural effusions. The pulmonary vascularity is normal. The cardiomediastinal silhouette is stable. IMPRESSION: There is no acute pleural-parenchymal process seen in the imaged lung mcclure. Location of Interpretation: Teleradiology Electronically signed by: Zhen Ellsworth MD 05/15/2017 9:21 PM CDT Workstation: [facility]
[2017-05-15] MEDS ORDERED: NALOXONE HCL INJ 0.4 MG/ML VIAL IV ONE (21:35)
[2017-05-15] MEDS ORDERED: NALOXONE HCL INJ 1 MG/ML SYG IV ONE (22:37)
[2017-05-15] MEDS ORDERED: NALOXONE HCL INJ 1 MG/ML SYG ONE (22:38)
[2017-05-15] MEDS ORDERED: KCL 10 MEQ/D5 1/2NS 1,000 ML IVS ONE (23:15)
[2017-05-16] MEDS ORDERED: NALOXONE HCL INJ 1 MG/ML SYG IV ONE (00:10)
--- NOTE | 2017-05-16 00:41 | ED.PDOC ---
History of Present Illness - General Chief Complaint: Neuro Symptoms/Deficits Stated Complaint: fall, altered mental status Time Seen by Provider: 05/15/17 20:26 Source: EMS notes reviewed, family Exam Limitations: clinical condition - History of Present Illness Initial Comments: The patient is a 56-year-old male presenting to the emergency room due to altered mental status. Apparently his family found him sitting on the porch leaned over a table this afternoon. He was in the heat. The patient has had several episodes of altered mental status and lethargy over the past few weeks. He is on multiple sedative medications for pain control, and seizure control as well as anxiety and restless legs syndrome. The patient also has significant depression though there is no evidence of this is a suicide attempt. The patient is very drowsy upon arrival and would awake and talk to you after he was stimulated with some pain. No evidence of respiratory distress. No evidence of fever. No evidence of any nuchal rigidity. Initially the patient was arousable to pain in the Route voice. He was initially able to protect his airway. He was requiring low-flow oxygen in the form of about 2 L nasal cannula to maintain his oxygen saturations. He does have known COPD. The patient does have some erythema to his sacrum where he was sitting for a while. Oral intake was likely poor for the day. Severity: severe Allergies/Adverse Reactions: Allergies NO KNOWN ALLERGY Allergy (Verified 05/15/17 21:06) Home Medications: Ambulatory Orders Aspirin [Qc Chewable Aspirin Low D] 81 mg PO DAILY 04/08/17 Beclomethasone Dipropionate [Qvar] 40 mcg IN DAILY PRN 04/08/17 DULoxetine HCL [Cymbalta] 30 mg PO DAILY 04/08/17 Gabapentin 600 mg PO BID 04/08/17 HYDROcodone 10MG/APAP 325MG [[place] 10/325] 1 ea PO Q6H PRN 04/08/17 Hydroxyzine HCl 50 mg PO DAILY PRN 04/08/17 Lamotrigine 200 mg PO DAILY 04/08/17 Lisinopril & Hydrochlorothiazi [Lisinopril/Hctz 20-12.5 mg] 1 tab PO BID Magnesium Oxide (mg Supplement [Magnesium Oxide] 400 mg PO DAILY 04/08/17 Metformin HCl 1,000 mg PO BIDFD 04/08/17 Multiple Vitamins W/ Minerals [Multivitamin Adults] 1 tab PO DAILY 04/08/17 [place]-3 Fatty Acids [Fish Oil 1000 mg] 1 cap PO BID 04/08/17 Potassium Gluconate 595 mg PO DAILY 04/08/17 Primidone 375 mg PO BID 04/08/17 Risperidone [Risperdal] 1 mg PO BID 04/08/17 Ropinirole Hydrochloride [Ropinirole HCl] 1 mg PO BEDTIME PRN 04/08/17 Simvastatin 20 mg PO BEDTIME 04/08/17 Varenicline [Chantix] 0.5 mg PO DAILY 04/08/17 Bifidobacterium Infantis [Align] 4 mg PO DAILY 04/13/17 HYDROcodone 10MG/APAP 325MG [[place] 10/325] 1 - 2 ea PO Q6H PRN 04/13/17 Review of Systems - Review of Systems Review of Systems: 05/16/17 00:41 unable to obtain due to clinical condition Unable to Obtain Due To: clinical condition Past Medical History (General) - Patient Medical History Hx Seizures: Yes Hx Stroke: Yes Hx Dementia: No Hx Asthma: No Hx of COPD: Yes Hx Cardiac Disorders: Yes Hx Congestive Heart Failure: No Hx Pacemaker: No Hx Hypertension: Yes Hx Thyroid Disease: No Hx Diabetes: Yes Hx Gastroesophageal Reflux: Yes Hx Renal Disease: No Hx Cancer: No Hx of HIV: No Hx Hepatitis C: No Hx MRSA: No Surgical History: noncontributory - Vaccination History Hx Tetanus, Diphtheria Vaccination: No Hx Influenza Vaccination: No Hx Pneumococcal Vaccination: No Immunizations Up to Date: No - Social History Hx Tobacco Use: Yes Hx Chewing Tobacco Use: Yes Hx Alcohol Use: Yes Hx Substance Use: Yes Hx Substance Use Treatment: No Hx Depression: Yes Feels Threatened In Home Enviroment: No Feels Threatened In a Relationship: No Hx Physical Abuse: No Hx Emotional Abuse: No Hx Suspected Abuse: No - Female History Patient : No Family Medical History - Family History Father Family History: Unknown Living Status: Hx Family Asthma: No Hx Family Congestive Heart Failure: No Hx Family Hypertension: No Hx Family Stroke: No Hx Cardiac Disease: Yes Hx Family Diabetes: No Hx Family Cancer: Yes - melanoma -dad Hx Family;Other: alch hx Physical Exam - Physical Exam General Appearance: Lethargic, Ill Appearing, Unkempt Eye Exam: bilateral other - pupils are small and minimally reactive to light. There is more tosis on the right than the left. Ears, Nose, Throat: hearing grossly normal - as best can be assessed, other - pharynx is dry Neck: non-tender, full range of motion, supple, normal inspection Respiratory: chest non-tender, lungs clear, normal breath sounds, no respiratory distress, no accessory muscle use Cardiovascular/Chest: normal peripheral pulses, regular rate, rhythm, no edema Peripheral Pulses: radial,right: 2+, radial,left: 2+, dorsalis pedis,right: 2+, dorsalis pedis,left: 2+, posterior tibialis,right: 2+, posterior tibialis,left: 2+ Gastrointestinal/Abdominal: non tender, soft Rectal Exam: deferred Back Exam: no CVA tenderness, no vertebral tenderness, other - e does have some sacral erythema Extremity: normal range of motion, non-tender, normal inspection, no pedal edema , no calf tenderness, normal capillary refill Neurologic: other - the patient is very drowsy. Initial GCS is around 11 or 12. He is disoriented but arousable to loud voice or discomfort. He is able to move his extremities. He is able to protect his airway. Skin Exam: pallor Comments: Vital Signs - 24 hr 05/15/17 05/15/17 20:20 20:21 Temperature 98.1 F Pulse Rate [ 97 H monitor] Respiratory 16 16 Rate Blood Pressure 147/82 [Left Arm] O2 Sat by Pulse 90 L Oximetry Progress - Progress Progress: 05/16/17 00:44 the patient is a 56-year-old male presenting with altered mental status that appears to be due to overdosing on prescription medications accidentally. It is possible the altered mental status may have started with a seizure as he does have a history. He does have some exposure. The patient has received IV fluids and is continuing to receive IV fluids. The patient did have a decline in his mental status down to a GCS of around 9, and was unable to adequately protect his airway. He did receive several doses of Narcan and has come back around nicely. At no point did he desaturate. The patient is currently arousable to voice. He moves all extremities well. He knows he is in the [facility]. He can tell you where he hurts. The patient will need a glucose in the next few hours. Will need frequent neuro checks to make sure he does not need further Narcan dosing. He still needs a urinalysis and urine drug screen. Admit for further care. - Results/Orders Results/Orders: Laboratory Tests 05/15/17 05/15/17 05/15/17 20:27 20:27 20:27 WBC 10.3 RBC 4.21 L Hgb 12.0 L Hct 35.7 L MCV 84.8 MCH 28.5 MCHC 33.7 RDW 13.9 Plt Count 279 MPV 7.3 L Absolute Neuts (auto) 7.30 H Absolute Lymphs (auto) 1.90 Absolute Monos (auto) 0.70 Absolute Eos (auto) 0.20 Absolute Basos (auto) 0.10 Neutrophils % 71.4 Lymphocytes % 18.5 L Monocytes % 6.7 Eosinophils % 2.4 Basophils % 1.0 PT 11.6 INR 1.030 PTT (SP) 33.6 D-Dimer, Quantitative 580 H* Sodium 132 L Potassium 4.4 Chloride 96 L Carbon Dioxide 26 Anion Gap 14.4 BUN 15 Creatinine 1.14 BUN/Creatinine Ratio 13.2 POC Glucose Random Glucose 103 Serum Osmolality 265.6 L Lactic Acid Calcium 9.7 Magnesium 1.4 L Total Bilirubin 0.3 AST 27 ALT 21 Alkaline Phosphatase 85 Creatine Kinase 290 H* CK-MB (CK-2) 6.6 H* CK-MB (CK-2) % 2.30 Troponin I 0.03 B-Natriuretic Peptide 19.9 Serum Total Protein 7.0 Albumin 3.8 Globulin 3.2 Albumin/Globulin Ratio 1.2 Amylase 45 Lipase < 14 L TSH 0.79 Ethyl Alcohol 05/15/17 05/15/17 05/15/17 20:45 20:50 22:40 WBC RBC Hgb Hct MCV MCH MCHC RDW Plt Count MPV Absolute Neuts (auto) Absolute Lymphs (auto) Absolute Monos (auto) Absolute Eos (auto) Absolute Basos (auto) Neutrophils % Lymphocytes % Monocytes % Eosinophils % Basophils % PT INR PTT (SP) D-Dimer, Quantitative Sodium Potassium Chloride Carbon Dioxide Anion Gap BUN Creatinine BUN/Creatinine Ratio POC Glucose 94 Random Glucose Serum Osmolality Lactic Acid 0.8 Calcium Magnesium Total Bilirubin AST ALT Alkaline Phosphatase Creatine Kinase CK-MB (CK-2) CK-MB (CK-2) % Troponin I B-Natriuretic Peptide Serum Total Protein Albumin Globulin Albumin/Globulin Ratio Amylase Lipase TSH Ethyl Alcohol < 5.40 urinalysis and urine drug screen are still pending. Chest x-ray shows no evidence of overt pneumonia. There are changes from COPD. Head CT shows no acute changes otherwise. - EKG/XRAY/CT CT Ordered: Yes Departure - Departure Clinical Impression: Drug overdose Qualifiers: Encounter type: initial encounter Injury intent: accidental or unintentional Qualified Code(s): T50.901A - Poisoning by unspecified drugs, medicaments and biological substances, accidental (unintentional), initial encounter Heat exposure Qualifiers: Encounter type: initial encounter Qualified Code(s): T67.9XXA - Effect of heat and light, unspecified, initial encounter Disposition: Admit Patient Referrals: Fatmata Umaña DO [Primary Care Provider] - 1-2 Weeks Home Medications: Ambulatory Orders Aspirin [Qc Chewable Aspirin Low D] 81 mg PO DAILY 04/08/17 Beclomethasone Dipropionate [Qvar] 40 mcg IN DAILY PRN 04/08/17 DULoxetine HCL [Cymbalta] 30 mg PO DAILY 04/08/17 Gabapentin 600 mg PO BID 04/08/17 HYDROcodone 10MG/APAP 325MG [[place] 10/325] 1 ea PO Q6H PRN 04/08/17 Hydroxyzine HCl 50 mg PO DAILY PRN 04/08/17 Lamotrigine 200 mg PO DAILY 04/08/17 Lisinopril & Hydrochlorothiazi [Lisinopril/Hctz 20-12.5 mg] 1 tab PO BID Magnesium Oxide (mg Supplement [Magnesium Oxide] 400 mg PO DAILY 04/08/17 Metformin HCl 1,000 mg PO BIDFD 04/08/17 Multiple Vitamins W/ Minerals [Multivitamin Adults] 1 tab PO DAILY 04/08/17 [place]-3 Fatty Acids [Fish Oil 1000 mg] 1 cap PO BID 04/08/17 Potassium Gluconate 595 mg PO DAILY 04/08/17 Primidone 375 mg PO BID 04/08/17 Risperidone [Risperdal] 1 mg PO BID 04/08/17 Ropinirole Hydrochloride [Ropinirole HCl] 1 mg PO BEDTIME PRN 04/08/17 Simvastatin 20 mg PO BEDTIME 04/08/17 Varenicline [Chantix] 0.5 mg PO DAILY 04/08/17 Bifidobacterium Infantis [Align] 4 mg PO DAILY 04/13/17 HYDROcodone 10MG/APAP 325MG [[place] 10/325] 1 - 2 ea PO Q6H PRN 04/13/17 Decision To Admit - Decistion To Admit Decision to Admit Reason: Medical Nature Decision to Admit Date: 05/16/17 Decision to Admit Time: 00:47
--- NOTE | 2017-05-16 01:02 | HP ---
SUPERVISING PHYSICIAN: John Russell M.D. CHIEF COMPLAINT: Altered mental status status post fall. HISTORY OF PRESENT ILLNESS: Mr. Pérez is a 56 year-old male patient that presented to the Emergency Department due to some altered mental status. Apparently his family found him sitting on the floor at home slumped over a table. It is noted that his house was without any electricity. He has no air conditioning. The patient has had previous episodes of altered mental status especially over the last month with a previous admission on 05/02/17 for the same symptoms. He also has significant depression, although there is no evidence of any suicidal attempts. On arrival to the Emergency Department, the patient was found to be very drowsy upon arrival, but would awake with verbal stimulation and deep pain stimulus. There was no evidence of respiratory distress. No evidence of any fevers or nuchal rigidity. Initially the patient was arousable en route and was on 2 liters nasal cannula, and was able to protect his airway, however he did continue to show poor responsiveness, therefore given the patient has multiple medications and his home medication list includes medications that result in mental status changes to include morphine and Benzodiazepines as well as the patient has a history of some seizures in the past. The patient was given some Narcan with good results. Labs were then completed in the Emergency Department showing he had a normal white count at 10.3 with hematocrit 35.7 with differential showing no left shift. Coagulation studies did show an elevated D-dimer of 580 but PT and PTT were normal. His chemistries showed sodium 132, potassium 4.4, BUN 15, creatinine 1.15, magnesium was 1.4. Creatinine was slightly elevated at 290, troponin was 0.03. Liver functions showed to be within normal limits. Glucose was 103. Urinalysis showed a trace of blood with microscopic revealing 3 to 5 RBCs, 3 to 5 WBCs and 4+ bacteria. Toxicology screen was completed that showed positive opioids, barbiturates, Benzodiazepines and cannabinoids. Alcohol level was less than 5.40. Microbiology: Blood cultures were collected. Urine culture is pending. Radiology: Initially he had a chest x-ray in the Emergency Department and per radiology interpretation showed no acute pleural or parenchymal process. He was also evaluated with a head CT without contrast given the altered mental status and per radiology interpretation there was no intracranial abnormalities noted. Given the patient's poor responsiveness and increased awareness after Narcan, given that he has multiple sedative type medications, the patient will be placed in Observation for further treatment and evaluation. PAST MEDICAL HISTORY: 1. Type 2 diabetes mellitus. 2. Lumbar disc disease. 3. Depression. 4. Hypertension. 5. Seizure disorder. 6. Chronic obstructive pulmonary disease. 7. Bipolar disorder with depression. 8. Memory loss. 9. Hyperlipidemia. 10. Restless leg syndrome. PAST SURGICAL HISTORY: 1. Arthroscopy of the left knee 3 times. 2. Hernia repair 3 times. 3. Spinal surgery of the lumbar region 3 times. 4. Eye surgery. HOME MEDICATIONS: 1. Metformin 1000 mg twice daily. 2. Lamotrigine 200 mg daily. 3. Aspirin 81 mg daily. 4. Elavil 25 mg at bedtime. 5. Diazepam 10 mg 3 times a day. 6. Proventil nebs 2.5 mg p.r.n. 7. Morphine sulfate extended release 60 mg twice daily. 8. Cymbalta 60 mg daily. 9. QVAR 80 mcg daily as needed. 10. Hydroxyzine 50 mg daily as needed. 11. [place] 10/325 one every 6 hours p.r.n. for pain. 12. Gabapentin 600 mg 3 times a day. 13. Risperdal 1 mg twice daily. 14. Primidone 375 mg twice daily. 15. Fish oil 1000 mg twice daily. 16. Multivitamins with minerals once daily. FAMILY HISTORY: Noncontributory. SOCIAL HISTORY: He is . He has 1 child. He currently smokes approximately 1 pack of cigarettes a day. He denies any illicit drugs or alcohol usage. He currently lives in [place], but is without any electricity. REVIEW OF SYSTEMS: On admission to the Medical/Surgical floor, the patient denied any chills, fevers or weight change. HEENT: Denies any vision changes, sore throat or nasal congestion. RESPIRATORY: Notes that he has had some positive shortness of breath and coughing occasionally with some wheezing. CARDIAC: Denies any chest pains, palpitations or tachycardia. GASTROINTESTINAL: Denies any nausea, vomiting or abdominal pain. GENITOURINARY: He does note that he has had some increased urination but no hematuria, but has noted he has had some dysuria within the last week. NEUROLOGIC: As noted in the History of Present Illness, positive for decreased awareness with some dizziness, weakness and history of seizures. INTEGUMENT: Negative for any rashes or lesions. PHYSICAL EXAMINATION: VITAL SIGNS: Initially in the Emergency Department temperature was 98.1, pulse 97, blood pressure 147/82, respirations 16, satting 90% on 2.5 liters nasal cannula. On admission to the Medical/Surgical floor, temperature was 98, pulse 76, blood pressure 170/96, respirations 16, satting 91% on nasal cannula at rest. Admission weight was 71.7 kg. GENERAL: The patient is very unkempt, disheveled but he is alert and oriented on admission to the Medical/Surgical floor. HEENT: Tympanic membranes are obscured by cerumen. Oropharynx is pink. Mucosal membranes are dry. There is no notable lesion. NECK: Non-tender, full range of motion, supple without any notable jugular venous distention. CHEST: Lungs are clear to auscultation without any obvious rhonchi, wheezing or rales. CARDIOVASCULAR: Regular rate and rhythm without any appreciable murmurs, gallops, or rubs. ABDOMEN: Soft, non-tender. Positive bowel sounds. BACK: Some mild erythema towards the sacral area but no other lesions. CVA tenderness was negative. EXTREMITIES: No clubbing, cyanosis or edema. He does move all extremities ad nia. NEUROLOGIC: The patient is alert with a GCS of 15 on admission to the Medical/ Surgical floor, very cooperative. Does have somewhat of a slowed speech but is very communicative. Facial features were symmetrical. Extraocular movements are within normal limits. There is no notable nystagmus. He is alert and oriented times three. LABORATORY: CBC on admission showed a white count of 10.3, hemoglobin 12.0, hematocrit 35.7, platelet count 279,000. Differential was within normal limits. Coagulation studies showed PT of 11.6, PTT of 33.6 with D-dimer of 580. Chemistries initially sodium was 132, potassium 4.4. Renal function showed BUN 15, creatinine 1.14 with blood sugar 103, magnesium was low at 1.4. CPK was elevated at 290. Liver functions all showed to be within normal limits. Urinalysis showed a trace of blood. Microscopic showed 3 to 5 RBCs, 3 to 5 WBCs with zero epithelials and 4+ bacteria. Toxicology screens included urine drug screen that showed positive for opiates, barbiturates, Benzodiazepines and cannabinoids. Alcohol was less than 5.4. MICROBIOLOGY: Blood cultures are pending times 2. Urine culture is pending. RADIOLOGY: Initially chest x-ray in the Emergency Department per radiology interpretation showed there are no acute pleural or parenchymal processes noted. He also had a head CT without contrast prior to admission and per radiology interpretation there was no mention of acute intracranial abnormalities. ASSESSMENT: 1. Altered mental status due to polypharmacy and exacerbation by hyponatremia with the patient being on morphine, [place] and Diazepam as well as Hydroxyzine, all contributing to decreasing mental status secondary to over medication with alcohol level being negative with some exacerbation from hyponatremia. 2. Mild hyponatremia likely chronic. 3. Hypomagnesemia. 4. Poor medical compliance with medication regimen. 5. Chronic obstructive pulmonary disease in a chronic smoker. 6. Urinary tract infection with urine cultures pending likely contributing to his ongoing acute mental status change. 7. Chronic pain syndrome with multiple medications followed by Dr. Umaña in [place] likely contributing to his altered mental status. 8. Moderate dehydration secondary to environmental exposure and poor oral intake all exacerbated by multiple pain medications and poor living conditions. 9. Chronic renal failure history with current intact renal function. 10. Diabetes mellitus type 2 on oral therapy. 11. Chronic lower back pain secondary to extensive lumbar disc disease. 12. Chronic tobacco abuse. PLAN: The patient is placed in Observation from the Emergency Department for further Neurological evaluation and further management of his home medications. Consider a degree or polypharmacy with pain medications and Benzodiazepines. Initially will hold any sedative medications until later today and then resume those as appropriate, and monitor closely. He will be started on DVT prophylaxis as per protocol. He will be given a nicotine patch for assistance with smoking cessation. He will also be started on IV fluids to assist with rehydration with normal saline and close monitoring. He will be started on insulin sliding scale. All of his home medications will be reviewed and started as appropriate. [facility] has contacted our Decorating Machine Operator, [place], in regards to the patient's ongoing home environment as he is without any electricity, and this will continue to be monitored and followed-up with prior to discharge. Anticipate hopefully discharging tomorrow once the medication regimen has been verified and the patient is shown to be clinically stable. He will need again close followup with his primary care provider with Dr. Umaña in [place]. He will also have potassium replacement IV with clinical reevaluation in the morning to include a BMP and repeat magnesium level. In regards to the urinary tract infection, will await culture results. Until then, continue the patient on parenteral antibiotics to include Rocephin. #[id number] and [id number] MTDD
[2017-05-16] MEDS ORDERED: LEVALBUTEROL NEBS 1.25 MG/3 ML VIAL INH PRN (01:05)
[2017-05-16] MEDS ORDERED: SODIUM CHLORIDE 0.9% (FLUSH) 10 ML SYG IV PRN (01:05)
[2017-05-16] MEDS ORDERED: MAGNESIUM HYDROXIDE 30 ML UD PO PRN (01:05)
[2017-05-16] MEDS ORDERED: NALOXONE HCL INJ 0.4 MG/ML VIAL IV PRN (01:16)
[2017-05-16] MEDS ORDERED: DEXTROSE 50% 25 GM/50 ML SYG IV PRN (01:19)
[2017-05-16] MEDS ORDERED: GLUCAGON INJ 1 MG VIAL SUBCU PRN (01:19)
[2017-05-16] MEDS ORDERED: IV SET AND CAP CHANGE INJ INJ SCH (01:30)
--- NOTE | 2017-05-16 01:33 | PCM.CORE ---
Physician DVT/VTE - Prophylaxis Currently: Patient already on anticoagulation therapy - 3-4 High Risk Treatments: Sequential Compression Device
[2017-05-16] MEDS ORDERED: ENOXAPARIN SODIUM 40 MG/0.4 ML SYG SUBCU SCH (02:00)
[2017-05-16] MEDS: SODIUM CHLORIDE 0.9% 1000ML 1,000 ML IVS PRN ×2 (02:22→12:17)
[2017-05-16] MEDS: OMEPRAZOLE CAP 20 MG CAP PO SCH (05:39)
[2017-05-16] MEDS: INSULIN LISPRO 100 UNITS/ML PEN SUBCU SCH ×4 (07:19→21:13)
[2017-05-16] MEDS: POTASSIUM CHLORIDE 10 MEQ TAB PO SCH (07:32)
[2017-05-16] MEDS: metFORMIN HCL 500 MG TAB PO SCH ×2 (07:33→16:37)
[2017-05-16] MEDS ORDERED: PRIMIDONE 50 MG TAB PO ONE (08:32)
[2017-05-16] MEDS ORDERED: lamoTRIgine 100 MG TAB ONE (08:33)
[2017-05-16] MEDS: IPRATROPIUM/ALBUTEROL 3 ML VIAL INH SCH ×4 (09:15→20:11)
[2017-05-16] MEDS: PRIMIDONE 50 MG TAB PO SCH ×2 (09:24→20:15)
[2017-05-16] MEDS: lamoTRIgine 100 MG TAB PO SCH (09:27)
[2017-05-16] MEDS: LISINOPRIL 10 MG TAB PO SCH (09:27)
[2017-05-16] MEDS: risperiDONE 1 MG TAB PO SCH ×2 (09:28→20:18)
[2017-05-16] MEDS: HYDROcodone 7.5MG/APAP 325MG 1 EA TAB PO PRN ×2 (11:11→17:24)
[2017-05-16] MEDS: cefTRIAXone SODIUM 1 GM in SODIUM CHL 0.9% 50ML MIN-BAG+ 50 ML IVPB SCH (12:23)
[2017-05-16] MEDS ORDERED: cefTRIAXone SODIUM 1 GM VIAL ONE ×2 (12:23→19:25)
[2017-05-16] MEDS ORDERED: SODIUM CHL 0.9% 50ML MIN-BAG+ 50 ML IVPB ONE ×2 (12:23→19:24)
[2017-05-16] MEDS ORDERED: NICOTINE PATCH 14 MG TD SCH (14:00)
[2017-05-16] MEDS ORDERED: MAGNESIUM SULFATE PREMIX 2GM 2 GM in PREMIX BAG 1 BAG IVPB ONE (19:24)
[2017-05-16] MEDS ORDERED: MORPHINE ER 30 MG TAB ONE (19:25)
[2017-05-16] MEDS ORDERED: diazePAM 5 MG TAB ONE (19:25)
[2017-05-16] MEDS ORDERED: GABAPENTIN 300 MG CAP ONE (19:26)
[2017-05-16] MEDS ORDERED: MAGNESIUM SULFATE PREMIX 2GM 50 ML IVPB ONE (19:28)
[2017-05-16] MEDS ORDERED: MULTIPLE VITAMIN INJ 10 ML, THIAMINE HCL INJ 100 MG in SODIUM CHLORIDE 0.9% 1000ML 1,00... IVS SCH (19:30)
[2017-05-16] MEDS ORDERED: SODIUM CHLORIDE 0.9% 1000ML 1,000 ML ONE (19:46)
[2017-05-16] MEDS ORDERED: THIAMINE HCL INJ 100 MG/ML VIAL ONE (19:47)
[2017-05-16] MEDS ORDERED: MULTIPLE VITAMIN 10 ML VIAL ONE (19:47)
[2017-05-16] MEDS ORDERED: AMITRIPTYLINE HCL 25 MG TAB PO SCH (21:00)
[2017-05-16] MEDS ORDERED: MORPHINE SULFATE 60 MG PO SCH (21:00)
[2017-05-16] MEDS ORDERED: DIAZEPAM 10 MG PO SCH (21:00)
[2017-05-16] MEDS ORDERED: NON-FORMULARY MEDICATION 1 EA MIS (Gabapentin [Gabapentin] 600 MG) PO SCH (21:00)
[2017-05-17] MEDS: cefTRIAXone SODIUM 1 GM in SODIUM CHL 0.9% 50ML MIN-BAG+ 50 ML IVPB SCH (00:35)
[2017-05-17] MEDS: OMEPRAZOLE CAP 20 MG CAP PO SCH (05:49)
[2017-05-17 05:56] VITALS: O2SAT 95
[2017-05-17] MEDS: INSULIN LISPRO 100 UNITS/ML PEN SUBCU SCH (07:00)
[2017-05-17] MEDS ORDERED: metFORMIN HCL 500 MG TAB PO SCH (07:30)
[2017-05-17] MEDS: metFORMIN HCL 500 MG TAB PO SCH (07:41)
[2017-05-17] MEDS: HYDROcodone 7.5MG/APAP 325MG 1 EA TAB PO PRN (08:09)
[2017-05-17] MEDS: POTASSIUM CHLORIDE 10 MEQ TAB PO SCH (08:09)
[2017-05-17] MEDS ORDERED: DULoxetine HCL 30 MG CAP PO SCH (09:00)
[2017-05-17] MEDS ORDERED: GABAPENTIN 300 MG CAP PO SCH (09:00)
[2017-05-17] MEDS ORDERED: ASPIRIN (CHEWABLE) 81 MG TAB PO SCH (09:00)
[2017-05-17] MEDS ORDERED: MULTIPLE VITAMINS W/ MINERALS 1 EA TAB PO SCH (09:00)
[2017-05-17] MEDS ORDERED: diazePAM 5 MG TAB PO SCH (09:00)
[2017-05-17] MEDS ORDERED: MORPHINE ER 30 MG TAB PO SCH (09:00)
[2017-05-17] MEDS: PRIMIDONE 50 MG TAB PO SCH (09:42)
[2017-05-17] MEDS: lamoTRIgine 100 MG TAB PO SCH (09:42)
[2017-05-17] MEDS: risperiDONE 1 MG TAB PO SCH (09:44)
[2017-05-17] MEDS: LISINOPRIL 10 MG TAB PO SCH (09:44)
[2017-05-17] MEDS: ENOXAPARIN SODIUM 40 MG/0.4 ML SYG SUBCU SCH ×2 (09:45→09:52)
[2017-05-17] MEDS: NICOTINE PATCH 14 MG TD SCH ×2 (09:45→09:51)
[2017-05-17 10:46] VITALS: BP 126/78; TEMP 98
--- NOTE | 2017-05-19 16:25 | DS ---
SUPERVISING PHYSICIAN: Jabier Stuart M.D. DISCHARGE DIAGNOSIS: 1. Altered mental status due to polypharmacy and exacerbation by hyponatremia with the patient being on morphine, [place] and Diazepam as well as Hydroxyzine, all contributing to decreasing mental status from over medication with alcohol level being negative with some exacerbation again from hyponatremia showing improvement after IV therapy and a 12 hour time frame of holding all sedative medications. 2. Mild hyponatremia likely chronic. 3. Hypomagnesemia. 4. Poor medical compliance with medication regimen. 5. Chronic obstructive pulmonary disease in a chronic smoker. 6. Urinary tract infection possibly contributing to his underlying mental status change although the patient says he is not really symptomatic with final culture results showing vancomycin resistant Enterococcus faecium with the patient having been on Rocephin and then transitioned to ciprofloxacin, however sensitivity report shows it to be resistant to both fluoroquinolones and Macrobid. 7. Chronic pain syndrome with multiple medications followed by Dr. Umaña in [place] likely contributing to his altered mental status showing good resolution after given [place]. 8. Moderate dehydration secondary to environmental exposure and poor oral intake all exacerbated by multiple pain medications and poor living conditions. 9. Chronic renal failure history of with current intact renal function. 10. Diabetes mellitus type 2 on oral therapy. 11. Chronic lower back pain secondary to extensive lumbar disc disease. 12. Chronic tobacco abuse. LABORATORY: Admission white count showed to be 10.3, at discharge was 10.1. Hemoglobin and history were stable, at discharge 11.8 and 35.6, platelet count 269,000. Differential showed to be within normal limits. Coagulation studies showed a normal PT and PTT with a slightly elevated D-dimer of 580. Chemistries on admission showed hyponatremia with sodium 132, potassium 4.4, BUN 50, creatinine1 .4, calcium 9.7, lactic acid 0.8. Liver functions showed to be within normal limits except for an elevated CPK that was 290 that did decrease after IV therapy was initiated, prior to discharge it was down to 255. All other liver functions were within normal limits. BNP was normal at 19.9. Urinalysis showed a trace of blood with 3 to 5 RBCs, 3 to 5 WBCs, zero epithelials and 4+ bacteria. Toxicology screen showed positive for opiates, barbiturates, Benzodiazepines and cannabinoids. Alcohol was less than 5.40. MICROBIOLOGY: He had 2 sets of blood cultures that were negative after 3 days. Urine culture did show Enterococcus faecium that was resistant to vancomycin as well as Macrobid and fluoroquinolones. RADIOLOGY: Chest x-ray in the Emergency Department prior to admission showed no acute pleural parenchymal processes noted in the imaged lung mcclure. He then had a head CT with no contrast and per radiology interpretation there were no acute intracranial abnormalities. HOSPITAL COURSE: Mr. Pérez was admitted as noted on his History of Present Illness in the E. R. for change in mental status. He was given Narcan which did show good change in his mental status. He was much more alert on admission to the Medical/Surgical floor. The patient was initiated on antibiotics given that he had what looked like an underlying urinary tract infection, although he was not complaining of being very symptomatic. At time of discharge, urine culture was pending. He was doing clinically better. I held his sedative medications for 12 hours and the patient was much more alert on the morning prior to discharge. Pain was still fairly well controlled and he understood that he should not be mixing his medicines up and taking them as not directed and taking any illicit drugs in between. It was felt that he was clinically stable on the day of discharge, therefore he was discharged to have followup. PLAN: The patient was discharged on 05/17/17 to have close clinical followup with his primary care physician, Dr. Umaña. He is to call Dr. Umaña's office on Saturday and schedule a followup appointment. He is to resume his home medications and take those as directed. He was encouraged to stop smoking as well as to no longer smoke marijuana or use any other drugs that were not prescribed by his primary care physician, especially given that he had a significant pain regimen in place. He is to return to the hospital should he have any failure of his condition to improve or any other concerning symptoms. He is also cautioned on taking his medications as directed to prevent over sedation. 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 Umaña's office to followup to address the underlying VRE specimen and let the patient know that he no longer needs to take the ciprofloxacin. It was noted that the patient is without any electricity and phone service, so it has been difficult to try to get hold of the patient, but we will continue to do so and call Dr. Umaña's office on Saturday. Diet at discharge was regular as tolerated. Activity was increase as tolerated. Condition at discharge was stable and improved. #[id number] BDED
== END 2017-05-17 11:00 | disposition home or self-care (01) ==
LOC: ER 20:20 → MS 20:30 → UNDOADMOB 05-16 01:01 → MS 05-16 01:01 → UNDODISOB 05-17 11:00
PROVIDERS: ADMIT Nurse Practitioner Family; ATTEND Nurse Practitioner Family
DX: R41.82 Altered mental status, unspecified (principal); E87.1 Hypo-osmolality and hyponatremia; E83.42 Hypomagnesemia; J44.9 Chronic obstructive pulmonary disease, unspecified; F17.210 Nicotine dependence, cigarettes, uncomplicated; N39.0 Urinary tract infection, site not specified; B95.2 Enterococcus as the cause of diseases classified elsewhere; G89.4 Chronic pain syndrome; E86.0 Dehydration; I12.9 Hypertensive chronic kidney disease with stage 1 through stage 4 chronic kidney disease, or unspecified chronic kidney disease; N18.9 Chronic kidney disease, unspecified; E11.22 Type 2 diabetes mellitus with diabetic chronic kidney disease; M51.36 Other intervertebral disc degeneration, lumbar region; F31.9 Bipolar disorder, unspecified; E78.5 Hyperlipidemia, unspecified; G40.409 Other generalized epilepsy and epileptic syndromes, not intractable, without status epilepticus; G25.81 Restless legs syndrome; Z66 Do not resuscitate; Z91.14 Patient's other noncompliance with medication regimen; Z79.891 Long term (current) use of opiate analgesic; Z79.84 Long term (current) use of oral hypoglycemic drugs; Z79.82 Long term (current) use of aspirin; Z79.899 Other long term (current) drug therapy; Z16.21 Resistance to vancomycin; Z16.23 Resistance to quinolones and fluoroquinolones; Z16.29 Resistance to other single specified antibiotic
CPT/HCPCS: 36415 ×5; 36416 ×5; 70450; 71010; 80048 ×2; 80053; 80307; 80320; 81001; 82150; 82550 ×2; 82553; 82948 ×6; 83605; 83690; 83735 ×2; 83880; 84443; 84484; 85025 ×2; 85379; 85610; 85730; 87040 ×2; 87086; 87088; 87186; 93005; 94640 ×5; 94760 ×4; 96365; 96366 ×3; 96367 ×2; 96372; 96375 ×2; 96376 ×3; 97116; 97162; 99284; 99406; G0378; G8978; G8979; G8980; J0696 ×2; J1650; J2310 ×3; J3411 ×2; J3475; J7030 ×4; J7050 ×2; J7620 ×5

== ENCOUNTER 2017-05-22 14:47 | Observation (INO) | payer MEDICARE, MEDICAID ==
--- NOTE | 2017-05-22 15:11 | RAD ---
Chest portable single view INDICATION: Weakness COMPARISON: May 15 IMPRESSION: Mild cardiomegaly with minimal vascular congestion. Slight interstitial thickening/edema. No lobar consolidation or alveolar edema. No large pleural effusion or pneumothorax Electronically signed by: Memo Figueroa MD 05/22/2017 3:09 PM CDT
--- NOTE | 2017-05-22 15:34 | CT ---
EXAM DESCRIPTION: Head CLINICAL HISTORY: 56 years, Male, AMS COMPARISON: May 15 FINDINGS: Unenhanced images through the brain. This examination was performed according to our departmental dose optimization program, which includes automatic exposure control, adjustment of the MA and/or kV according to the patient size and/or use of iterative reconstruction technique. Mildly prominent ventricles and sulci, stable. Mild white matter changes cain radiata bilaterally more on the left, stable. Dense atherosclerotic calcifications in the posterior circulation noted some mild ethmoid sinus mucosal thickening. Slight right maxillary sinus disease improved compared to May 15. IMPRESSION: 1. No significant change in the brain compared to May 15. No infarct hemorrhage or mass. 2. Mild microischemic changes periventricular white 3. Mild paranasal sinus disease improved compared to May 15 Electronically signed by: Mario Dennison MD 05/22/2017 3:33 PM CDT
[2017-05-22] MEDS ORDERED: NALOXONE HCL INJ 0.4 MG/ML VIAL IV ONE ×2 (15:42→18:30)
[2017-05-22] MEDS ORDERED: FLUMAZENIL 0.1 MG/ML VIAL ONE (17:13)
[2017-05-22] MEDS ORDERED: SODIUM CHLORIDE 0.9% 1000ML 1,000 ML ONE ×2 (17:21→19:34)
--- NOTE | 2017-05-22 17:41 | ED.PDOC ---
History of Present Illness - General Chief Complaint: General Stated Complaint: BLE weakness, slow to respond Time Seen by Provider: 05/22/17 14:52 Source: patient, EMS Exam Limitations: clinical condition - History of Present Illness Initial Comments: Patient presents with altered mental status. He called EMS from home. He was responding to questions but had to be physically placed on the gurney. Since coming to the E.D., he has not been able to coherently respond to questions and falls immediately to sleep. He has had several episodes of unresponsiveness before. Is a known recreational drug user. No other history is available. Timing/Duration: unsure Severity: severe Improving Factors: nothing Worsening Factors: nothing Associated Symptoms: other - unable to get more information Allergies/Adverse Reactions: Allergies NO KNOWN ALLERGY Allergy (Verified 05/22/17 15:45) Home Medications: Ambulatory Orders Aspirin [Qc Chewable Aspirin Low D] 81 mg PO DAILY 04/08/17 Beclomethasone Dipropionate [Qvar] 80 mcg IN DAILY PRN 04/08/17 DULoxetine HCL [Cymbalta] 60 mg PO DAILY 04/08/17 Gabapentin 600 mg PO TID 04/08/17 HYDROcodone 10MG/APAP 325MG [[place] 10/325] 1 ea PO Q6H PRN 04/08/17 Hydroxyzine HCl 50 mg PO DAILY PRN 04/08/17 Lamotrigine 200 mg PO DAILY 04/08/17 Metformin HCl 1,000 mg PO BIDFD 04/08/17 Multiple Vitamins W/ Minerals [Multivitamin Adults] 1 tab PO DAILY 04/08/17 [place]-3 Fatty Acids [Fish Oil 1000 mg] 1 cap PO BID 04/08/17 Primidone 375 mg PO BID 04/08/17 Risperidone [Risperdal] 1 mg PO BID 04/08/17 Albuterol Sulfate Nebs [Proventil Nebs] 2.5 mg INH PRN PRN 05/16/17 Amitriptyline HCl [Elavil] 25 mg PO BEDTIME 05/16/17 Diazepam 10 mg PO TID 05/16/17 Morphine Sulfate [Morphine Sulfate ER] 60 mg PO BID 05/16/17 Review of Systems - Review of Systems Unable to Obtain Due To: condition, clinical condition Past Medical History (General) - Patient Medical History Hx Seizures: Yes Hx Stroke: No Hx Dementia: No Hx Asthma: Yes Hx of COPD: Yes Hx Cardiac Disorders: Yes - hyperlipidemia Hx Congestive Heart Failure: No Hx Pacemaker: No Hx Hypertension: Yes Hx Thyroid Disease: No Hx Diabetes: Yes Hx Gastroesophageal Reflux: Yes Hx Renal Disease: No Hx Cancer: No Hx of HIV: No Hx Hepatitis C: No Hx MRSA: No - Vaccination History Hx Tetanus, Diphtheria Vaccination: No Hx Influenza Vaccination: No Hx Pneumococcal Vaccination: No - Social History Hx Tobacco Use: Yes Hx Chewing Tobacco Use: Yes Hx Alcohol Use: Yes Hx Substance Use: Yes Hx Substance Use Treatment: No Hx Depression: Yes Hx Physical Abuse: No Hx Emotional Abuse: No Hx Suspected Abuse: No - Female History Patient : No Family Medical History - Family History Father Family History: Unknown Living Status: Hx Family Asthma: No Hx Family Congestive Heart Failure: No Hx Family Hypertension: No Hx Family Stroke: No Hx Cardiac Disease: Yes Hx Family Diabetes: No Hx Family Cancer: Yes - melanoma -dad Hx Family;Other: alch hx Physical Exam - Physical Exam General Appearance: Lethargic Eye Exam: bilateral normal Ears, Nose, Throat: normal ENT inspection Neck: non-tender, full range of motion, supple Respiratory: lungs clear Cardiovascular/Chest: regular rate, rhythm Gastrointestinal/Abdominal: normal bowel sounds, non tender, soft Extremity: other - patient will not cooperate with exam Neurologic: other - Patient will not or cannot cooperate with exam. He does squeeze my fingers with his hands equally but will not move other parts of his body. He does respond to sternal rub and limb pain. He will wake up occasionally and respond to questions. Skin Exam: normal color Progress - Progress Progress: 05/22/17 17:43 CT head negative. Patient did not respond to Narcan. CK elevated. Patient admitted for AMS. Laboratory Tests 05/22/17 05/22/17 05/22/17 14:45 14:45 14:45 WBC 9.5 RBC 4.39 L Hgb 12.8 L Hct 37.5 L MCV 85.4 MCH 29.1 MCHC 34.0 RDW 13.8 Plt Count 408 H MPV 7.2 L Absolute Neuts (auto) 6.50 Absolute Lymphs (auto) 2.00 Absolute Monos (auto) 0.60 Absolute Eos (auto) 0.30 Absolute Basos (auto) 0.10 Neutrophils % 67.9 Lymphocytes % 21.2 Monocytes % 6.8 Eosinophils % 3.2 Basophils % 0.9 PT INR PTT (SP) Sodium 131 L Potassium 4.3 Chloride 96 L Carbon Dioxide 26 Anion Gap 13.3 BUN 9 Creatinine 0.89 BUN/Creatinine Ratio 10.1 Random Glucose 97 Serum Osmolality 261.3 L Calcium 9.6 Magnesium Total Bilirubin 0.5 AST 30 ALT 19 Alkaline Phosphatase 104 Creatine Kinase 252 H* CK-MB (CK-2) 9.1 H* CK-MB (CK-2) % 3.61 H Troponin I < 0.02 B-Natriuretic Peptide 23.5 Serum Total Protein 6.9 Albumin 3.8 Globulin 3.1 Albumin/Globulin Ratio 1.2 TSH Thyroxine (T4) Salicylates Acetaminophen Ethyl Alcohol 05/22/17 05/22/17 05/22/17 14:45 14:45 17:10 WBC RBC Hgb Hct MCV MCH MCHC RDW Plt Count MPV Absolute Neuts (auto) Absolute Lymphs (auto) Absolute Monos (auto) Absolute Eos (auto) Absolute Basos (auto) Neutrophils % Lymphocytes % Monocytes % Eosinophils % Basophils % PT 12.2 INR 1.080 PTT (SP) 35.7 Sodium Potassium Chloride Carbon Dioxide Anion Gap BUN Creatinine BUN/Creatinine Ratio Random Glucose Serum Osmolality Calcium Magnesium Total Bilirubin AST ALT Alkaline Phosphatase Creatine Kinase CK-MB (CK-2) CK-MB (CK-2) % Troponin I B-Natriuretic Peptide Serum Total Protein Albumin Globulin Albumin/Globulin Ratio TSH 0.81 Thyroxine (T4) 8.46 Salicylates 4.0 Acetaminophen < 10.0 L Ethyl Alcohol < 5.40 05/22/17 17:10 WBC RBC Hgb Hct MCV MCH MCHC RDW Plt Count MPV Absolute Neuts (auto) Absolute Lymphs (auto) Absolute Monos (auto) Absolute Eos (auto) Absolute Basos (auto) Neutrophils % Lymphocytes % Monocytes % Eosinophils % Basophils % PT INR PTT (SP) Sodium Potassium Chloride Carbon Dioxide Anion Gap BUN Creatinine BUN/Creatinine Ratio Random Glucose Serum Osmolality Calcium Magnesium 1.5 L Total Bilirubin AST ALT Alkaline Phosphatase Creatine Kinase CK-MB (CK-2) CK-MB (CK-2) % Troponin I B-Natriuretic Peptide Serum Total Protein Albumin Globulin Albumin/Globulin Ratio TSH Thyroxine (T4) Salicylates Acetaminophen Ethyl Alcohol Departure - Departure Clinical Impression: Altered mental status Disposition: Admit Patient Condition: Fair Departure Forms: ED Discharge - Pt. Copy, Patient Portal Self Enrollment Diet: other - as per hospitalist Activity: other - as per hospitalist Referrals: Fatmata Umaña DO [Primary Care Provider] - 1-2 Weeks Home Medications: Ambulatory Orders Aspirin [Qc Chewable Aspirin Low D] 81 mg PO DAILY 04/08/17 Beclomethasone Dipropionate [Qvar] 80 mcg IN DAILY PRN 04/08/17 DULoxetine HCL [Cymbalta] 60 mg PO DAILY 04/08/17 Gabapentin 600 mg PO TID 04/08/17 HYDROcodone 10MG/APAP 325MG [[place] 10/325] 1 ea PO Q6H PRN 04/08/17 Hydroxyzine HCl 50 mg PO DAILY PRN 04/08/17 Lamotrigine 200 mg PO DAILY 04/08/17 Metformin HCl 1,000 mg PO BIDFD 04/08/17 Multiple Vitamins W/ Minerals [Multivitamin Adults] 1 tab PO DAILY 04/08/17 [place]-3 Fatty Acids [Fish Oil 1000 mg] 1 cap PO BID 04/08/17 Primidone 375 mg PO BID 04/08/17 Risperidone [Risperdal] 1 mg PO BID 04/08/17 Albuterol Sulfate Nebs [Proventil Nebs] 2.5 mg INH PRN PRN 05/16/17 Amitriptyline HCl [Elavil] 25 mg PO BEDTIME 05/16/17 Diazepam 10 mg PO TID 05/16/17 Morphine Sulfate [Morphine Sulfate ER] 60 mg PO BID 05/16/17
--- NOTE | 2017-05-22 18:01 | HP ---
SUPERVISING PHYSICIAN: Jabier Stuart M.D. CHIEF COMPLAINT: Lower extremity weakness with mental status change. HISTORY OF PRESENT ILLNESS: Mr. Pérez is a 56 year-old male patient that presented to the Emergency Department today via 911 with altered mental status. 911 was called to his home when his home health nurse noted that he was very lethargic at home. It was noted that EMS had to physically place the patient on the gurney and on presentation to the Emergency Department the patient was coherent to questions, but very lethargic. He has had several previous admissions for similar episodes of being unresponsive. It was noted that he does have a history of recreational drug use, including most recent marijuana as well as he takes multiple pain medications and other sedative type medications that include Hydrocodone, Hydroxyzine, Risperidone, morphine sulfate as well as he takes Amitriptyline and Diazepam. He was given Narcan in the Emergency Department which resulted in very little change in his mental status. The patient was maintaining his own airway and would converse coherently, although he was quite lethargic in between questions. Laboratory studies completed showed a normal white count as well as an H&H of 12.8 and 37.5 with a normal platelet count. Chemistries showed a slightly low sodium at 131 with a normal potassium at 4.3, BUN 9, creatinine 0.89, magnesium 1.5, calcium 9.6. Liver functions all showed to be within normal limits. It was noted that his CPK was elevated at 252 with troponin less than 0.02. TSH was within normal limits as well. Urinalysis completed shows within normal limits. Toxicology screen was negative for elevated levels of salicylates, alcohol and Tylenol levels. Drug screen on urine was positive for urine opiates, barbiturates, Benzodiazepines as well as cannabinoids. The patient was maintaining his airway and again was lethargic, but was conversing indicating he was oriented, but given his degree of responsiveness it was felt the patient would benefit at least from overnight observation to further evaluate and close monitoring of his neurologic status. He was placed in observation in stable condition. PAST MEDICAL HISTORY: 1. Type 2 diabetes mellitus. 2. Lumbar disc disease. 3. Depression. 4. Hypertension. 5. Seizure disorder. 6. Chronic obstructive pulmonary disease. 7. Bipolar disorder with depression. 8. Memory loss. 9. Hyperlipidemia. 10. Restless leg syndrome. PAST SURGICAL HISTORY: 1. Arthroscopy of the left knee times 3. 2. Hernia repair 3 times. 3. Spinal surgery of the lumbar region 3 times. 4. Eye surgery. HOME MEDICATIONS: 1. Metformin 1,000 mg daily. 2. Lamotrigine 200 mg daily. 3. Aspirin 81 mg daily. 4. Elavil 25 mg at bedtime. 5. Diazepam 10 mEq 3 times a day. 6. Proventil nebs 2.5 mg p.r.n. 7. Morphine sulfate extended release 60 mg twice daily. 8. Cymbalta 60 mg daily. 9. QVAR 80 mcg daily as needed. 10. Hydroxyzine 50 mg as needed daily. 11. [place] 10/325 one every 6 hours as needed for pain. 12. Gabapentin 600 mg 3 times a day. 13. Risperdal 1 mg twice daily. 14. Primidone 375 mg twice daily. 15. Fish oil 1,000 mg twice daily. 16. Multivitamins daily. ALLERGIES: NO KNOWN DRUG ALLERGIES. FAMILY HISTORY: Noncontributory. SOCIAL HISTORY: He is . He currently smokes approximately 1 pack of cigarette a day. He denies any illicit drugs or alcohol use. He currently lives in [place] but is without any electricity at his home. REVIEW OF SYSTEMS: Difficult to obtain secondary to the patient's current mental status. PHYSICAL EXAMINATION: VITAL SIGNS: Temperature on admission to the . was 97.4, pulse 62, blood pressure 155/77, respirations 20, satting 97% on nasal cannula at rest. Weight 75.2 kg. GENERAL: The patient is very disheveled and unkempt. Strong odor of tobacco with the patient being very lethargic, but will communicate to verbal commands. HEENT: Tympanic membranes were obscured by cerumen. Oropharynx is pink. Mucosal membranes were extremely dry-looking, but no lesions were noted. NECK: Non-tender. Full range of motion. Supple without any jugular venous distention. CHEST: Lungs were clear to auscultation without any obvious rhonchi, wheezing or rales. ABDOMEN: Soft, non-tender. Positive bowel sounds. EXTREMITIES: No clubbing, cyanosis or edema. NEUROLOGIC: The patient is lethargic but awakens easily with a current GCS of 14 on admission to the Medical/Surgical floor. LABORATORY: CBC shows white count of 9.5, hemoglobin 12.8, hematocrit 37.5, platelet count 408,000. Differential showed to be within normal limits. Coagulation studies: PT and PTT were normal. Chemistries showed low sodium 131 with potassium 4.3, BUN was 9, creatinine 0.89, calcium was 9.6, magnesium 1.5. Liver functions showed to be within normal limits except for CPK that was elevated at 252. Troponin was less than 0.02. T4 and TSH were both within normal limits. Urinalysis showed to be within normal limits. Toxicology screen showed negative levels for salicylates, Acetaminophen and alcohol, but positive urine drug screen for opiates, barbiturates, Benzodiazepines and cannabinoids. RADIOLOGY: He had a CT of the head and per radiology interpretation there was no significant changes in the brain compared to 05/15 with no infarct, hemorrhage or masses noted. There was note of mild micro ischemic changes, periventricular white with mild paranasal sinus disease but improved since . He also had a chest x-ray and per radiology interpretation there was note of mild cardiomegaly with minimal vascular congestion with slight interstitial thickening and edema. There were no lumbar consolidations or alveolar edema noted. There was no large pleural effusion or pneumothorax. ASSESSMENT: 1. Acute mental status change likely due to polypharmacy with some mild exacerbation from hyponatremia with note that the patient is on morphine, [place], Diazepam as well as multiple other mental altering medications to include Hydroxyzine as well as some antidepressants. 2. Mild hyponatremia felt to be contributing to some of the altered mental status exacerbation from the polypharmacy. 3. Hypomagnesemia. 4. Poor medical compliance with a history of multiple admissions for altered mental status change secondary to ongoing pain management regimen. 5. Chronic obstructive pulmonary disease in a chronic smoker. 6. History of previous urinary tract infection with VRE noted with the patient showing an unremarkable urinalysis on admission. 7. Chronic pain syndrome with multiple medications followed by Dr. Umaña in [place] likely contributing to the previous altered mental status. 8. Chronic renal failure history with renal function currently showing to be intact. 9. History of chronic lower back pain from extensive lumbar disc disease. 10. Chronic tobacco abuse. 11. Moderate dehydration requiring IV fluids. PLAN: The patient will be placed in Observation tonight and started on close neurological checks as well as cardiac telemetry. Again, the patient has a GCS of 14, but is very hard to arouse at times, but controls his airway. Will provide supplemental oxygen as needed. Will start him on DVT prophylaxis as per protocol. At this point, will hold his medications as it is felt that the majority of these medications may have resulted in his acute mental status change. I will try additional Narcan once he is on the floor. In regards to the dehydration, will start him on IV fluids to monitor closely as well as replace his magnesium via IV. Will anticipate discharge once the patient is clinically alert enough and stable to followup with his doctor, Dr. Umaña in [place]. Until then, will continue to monitor the patient closely and treat appropriately. #[id number] [facility]
[2017-05-22] MEDS ORDERED: SODIUM CHLORIDE 0.9% (FLUSH) 10 ML SYG IV PRN (18:21)
[2017-05-22] MEDS ORDERED: IV SET AND CAP CHANGE INJ INJ SCH ×2 (18:30)
[2017-05-22] MEDS ORDERED: THIAMINE HCL INJ 100 MG/ML VIAL ONE (19:34)
[2017-05-22] MEDS ORDERED: MULTIPLE VITAMIN 10 ML VIAL ONE (19:35)
[2017-05-22] MEDS: MULTIPLE VITAMIN INJ 10 ML, THIAMINE HCL INJ 100 MG in SODIUM CHLORIDE 0.9% 1000ML 1,00... IVS SCH (19:46)
[2017-05-23] MEDS ORDERED: MAGNESIUM SULFATE PREMIX 2GM 2 GM in PREMIX BAG 1 BAG IVPB ONE (07:10)
[2017-05-23] MEDS ORDERED: MAGNESIUM SULFATE PREMIX 2GM 50 ML IVPB ONE (07:28)
[2017-05-23] MEDS ORDERED: NICOTINE PATCH 14 MG TD SCH (11:00)
[2017-05-23] MEDS ORDERED: HYDROcodone 10MG/APAP 325MG 1 EA TAB PO PRN (11:01)
[2017-05-23] MEDS ORDERED: BECLOMETHASONE DIPROPIONATE 80 MCG INH PRN (11:01)
[2017-05-23] MEDS ORDERED: ALBUTEROL SULFATE 2.5 MG/3 ML VIAL NEB PRN (11:01)
[2017-05-23] MEDS ORDERED: DEXTROSE 50% 25 GM/50 ML SYG IV PRN (11:03)
[2017-05-23] MEDS ORDERED: GLUCAGON INJ 1 MG VIAL SUBCU PRN (11:03)
[2017-05-23] MEDS ORDERED: MORPHINE ER 30 MG TAB ONE (11:23)
[2017-05-23] MEDS: MORPHINE ER 30 MG TAB PO SCH ×2 (11:30→20:31)
[2017-05-23] MEDS: INSULIN LISPRO 100 UNITS/ML PEN SUBCU SCH ×3 (11:54→21:57)
[2017-05-23] MEDS ORDERED: diazePAM 5 MG TAB ONE (13:40)
[2017-05-23] MEDS ORDERED: GABAPENTIN 300 MG CAP ONE (13:40)
[2017-05-23] MEDS: GABAPENTIN 300 MG CAP PO SCH ×2 (14:00→20:31)
[2017-05-23] MEDS: diazePAM 5 MG TAB PO SCH ×2 (14:00→20:31)
--- NOTE | 2017-05-23 15:00 | PN ---
SUPERVISING PHYSICIAN: Jabier Stuart MD DATE: 05/23/17 SUBJECTIVE: The patient is back to his baseline mental status this morning. In fact, last night, he was awake within several hours of being admitted. He does have significant lower extremity weakness and after working with physical therapy and at this point he is not safe at home by himself. We did hold his pain medicines and other sedative medications last night. He remains afebrile. OBJECTIVE: VITAL SIGNS: Temperature 97.0. Pulse 69. Blood pressure 125/77. Respirations 16. Saturation 92% on nasal cannula on 1 liter at rest. I&Os show positive balance, however, the patient has voided multiple times without being measured. Weight 70.76 kg. GENERAL: The patient appears to be disheveled, unkempt, but is alert and conversive this morning and oriented times 3. CHEST: Lungs clear to auscultation. HEART: Regular rate and rhythm. ABDOMEN: Soft, nontender. Positive bowel sounds. EXTREMITIES: No cyanosis, clubbing or edema. NEUROLOGIC: Alert and oriented times three. LABORATORY: CBC shows white count 8.9, hemoglobin 11.9, hematocrit 35.2, platelet count 380,000, differential within normal limits. Chemistries show normal electrolytes this morning with sodium 138, potassium 3.7. Glucoses have been fairly well controlled, anywhere from 80 to 140. Calcium 8.7. Magnesium despite replacement continues to be low at 1.5. Liver functions within normal limits. CPK now normalized at 150. ASSESSMENT: 1. Acute mental status change likely due to polypharmacy with some exacerbation from hyponatremia with note that the patient is on home medications to include morphine, [place], diazepam as well as multiple other mental altering medications to include hydroxyzine and some antidepressants. This morning, the patient is back to his baseline mental status, although he is significantly physically weak. 2. Mild hyponatremia on admission, exacerbating altered mental status as well as polypharmacy, now showing normalization after IV fluids. 3. Hypomagnesemia, persistent despite IV replacement. 4. Poor medical compliance with a history of multiple admissions for altered mental status change secondary to ongoing pain management regimen. 5. Chronic obstructive pulmonary disease in a chronic smoker. 6. History of previous urinary tract infection with vancomycin-resistant enterococcus with the patient showing an unremarkable urinalysis on admission and asymptomatic. 7. Chronic pain syndrome with multiple medications, currently followed by Dr. Umaña in [place], most likely contributing to the previous altered mental status on current admission as well as previous admissions. 8. History of chronic lower back pain from extensive lumbar disc disease, resulting in extreme weakness and significant deconditioning. 9. Chronic tobacco abuse. 10. Moderate dehydration, improving after IV fluids. PLAN: The patient today will have evaluation with physical therapy to assess his ability to return home safely. I did hold his medications last night. He is back to his baseline mental status this morning and notes he is wishing to re -start his pain medicines. We will plan to re-start his medicines as prescribed on home medications and observe the patient's clinical condition closely. Anticipate hopefully discharging tomorrow depending on his physical therapy progression with possible consideration for long-term inpatient rehab facility to ensure the patient is safe once he is discharged home. #[id number] MTDD
[2017-05-23] MEDS: metFORMIN HCL 500 MG TAB PO SCH (16:58)
[2017-05-23] MEDS ORDERED: THIAMINE HCL INJ 100 MG/ML VIAL ONE (17:20)
[2017-05-23] MEDS ORDERED: MULTIPLE VITAMIN 10 ML VIAL ONE (17:20)
[2017-05-23] MEDS ORDERED: SODIUM CHLORIDE 0.9% 1000ML 1,000 ML ONE (17:20)
[2017-05-23] MEDS: MULTIPLE VITAMIN INJ 10 ML, THIAMINE HCL INJ 100 MG in SODIUM CHLORIDE 0.9% 1000ML 1,00... IVS SCH (17:32)
[2017-05-23] MEDS ORDERED: MAGNESIUM HYDROXIDE 30 ML UD PO PRN (20:11)
[2017-05-23] MEDS: PRIMIDONE 50 MG TAB PO SCH (20:31)
[2017-05-23] MEDS: risperiDONE 1 MG TAB PO SCH (20:31)
[2017-05-23] MEDS ORDERED: AMITRIPTYLINE HCL 25 MG TAB PO SCH (21:00)
[2017-05-24] MEDS ORDERED: TEMAZEPAM 15 MG CAP PO ONE (00:01)
[2017-05-24] MEDS: INSULIN LISPRO 100 UNITS/ML PEN SUBCU SCH ×2 (07:24→11:46)
[2017-05-24] MEDS: metFORMIN HCL 500 MG TAB PO SCH (08:30)
[2017-05-24] MEDS ORDERED: SODIUM CHLORIDE 0.9% 1000ML 0 ML ONE (08:48)
[2017-05-24] MEDS ORDERED: MULTIPLE VITAMIN 10 ML VIAL ONE (08:51)
[2017-05-24] MEDS: risperiDONE 1 MG TAB PO SCH (08:55)
[2017-05-24] MEDS: PRIMIDONE 50 MG TAB PO SCH (08:56)
[2017-05-24] MEDS: GABAPENTIN 300 MG CAP PO SCH (09:00)
[2017-05-24] MEDS ORDERED: lamoTRIgine 100 MG TAB PO SCH (09:00)
[2017-05-24] MEDS ORDERED: MULTIPLE VITAMINS W/ MINERALS 1 EA TAB PO SCH (09:00)
[2017-05-24] MEDS ORDERED: DULoxetine HCL 30 MG CAP PO SCH (09:00)
[2017-05-24] MEDS ORDERED: NICOTINE PATCH 14 MG TD SCH (09:00)
[2017-05-24] MEDS ORDERED: ASPIRIN (CHEWABLE) 81 MG TAB PO SCH (09:00)
[2017-05-24] MEDS: diazePAM 5 MG TAB PO SCH (09:00)
[2017-05-24] MEDS: MORPHINE ER 30 MG TAB PO SCH (09:10)
[2017-05-24 11:00] VITALS: BP 150/84; TEMP 97.5
[2017-05-24 13:23] VITALS: O2SAT 88
--- NOTE | 2017-05-26 12:26 | DS ---
SUPERVISING PHYSICIAN: Jabier Stuart MD DISCHARGE DIAGNOSIS: 1. Acute mental status change due to polypharmacy with some exacerbation from hyponatremia with note that the patient is on multiple medications to include morphine p.o., [place], diazepam as well as other multiple mental altering medications to include hydroxyzine and antidepressants with the patient showing to be back to baseline shortly after admission and prior to discharge. 2. Mild hyponatremia on admission exacerbating altered mental status as well as polypharmacy and illicit drug use to include marijuana showing normalization after IV fluids. 3. Hypomagnesemia, persistent despite IV replacement. 4. Poor medical compliance with a history of multiple admissions for altered mental status changes secondary to ongoing pain management regimen and recreational drug use to include marijuana. 5. History of previous urinary tract infection with vancomycin-resistant enterococcus with the patient showing an unremarkable urinalysis on admission and asymptomatic. 6. Chronic back pain syndrome with multiple medications, currently followed by Dr. Umaña in [place], which was most likely contributing to the previous altered mental status on current admission as well as previous admissions requiring further close followup and medical management. 8. History of chronic lower back pain with extensive lumbar disc disease, resulting in extreme weakness and significant deconditioning and utilizing multiple pain medications. 9. Chronic tobacco abuse. 10. Chronic marijuana abuse. 11. Moderate dehydration improved after IV fluids. HISTORY OF PRESENT ILLNESS: Mr. Pérez is a 56 year-old patient that presented to the Emergency Department via 911 with altered mental status. 911 was called to his home when his home health nurse noted that he was very lethargic. It was noted by EMS that he was physically unable to move and was placed on the gurney and apparently the patient was coherent to some questions but very lethargic. He has had several previous admissions within the last month for similar episodes of being unresponsive. It was noted that he does have a history of recreational drug use, including most recently marijuana as well as he takes multiple pain medications and other sedative type medications that include Hydrocodone, Hydroxyzine, Risperidone, morphine sulfate as well as he takes Amitriptyline and Diazepam. He was given Narcan in the Emergency Department which resulted in very little change in his mental status. The patient was maintaining his own airway and could converse coherently, although he was quite lethargic in between questions. Laboratory studies completed showed a normal white with an H&H of 12.8 and 37.5 with a normal platelet count. Chemistries showed a slightly low sodium at 131 with a normal potassium of 4.3 and renal function within normal limits with magnesium showing to be low at 1.5 but a normal calcium at 9.6. Liver functions all showed to be within normal limits. Ammonia level was not completed. It was noted that his CPK was elevated at 252 with troponin less than 0.02. Initially, his TSH was within normal limits, Urinalysis showed also to be within normal limits. He had a toxicology screen which was negative for elevated levels, salicylates, alcohol and Tylenol levels. However, drug screen on urine was positive for urine opiates, barbiturates, Benzodiazepines as well as cannabinoids. The patient was maintaining his airway and again was lethargic, but after visiting with the patient in the Emergency Room prior to admission, he was conversing indicating he was oriented and stable but given his degree of responsiveness it was felt the patient would benefit at least from overnight observation to further evaluate and close monitoring of his neurologic status. He was placed in observation in stable condition. LABORATORY STUDIES: White count on admission and at discharge showed a normal white count which was 8.9. Hemoglobin and hematocrit were stable at 11.9 and 35.2. Platelet count at 380,000. Differential was within normal limits. Coagulation showed normal PT/PTT. His chemistries showed initially that he had a low sodium of 131, potassium 4.3, glucose was 97 on admission. Magnesium was low at 1.5. Liver functions showed to be within normal limits. CPK was elevated at 252. Troponin was less than 0.02. TSH and T4 were within normal limits. On discharge, his electrolytes had been normalized after IV fluids with a sodium of 138, magnesium continued to be low despite replacement. CPK normalized at 150. Urinalysis showed to be all within normal limits. Toxicology screen showed salicylates 4.0. Acetaminophen less than 10. Ethyl alcohol less than 5.4. Urine drug screen showed positive opiates, barbiturates , benzodiazepines and cannabinoids. MICROBIOLOGY: There were no microbiology specimens submitted. RADIOLOGY: He had a single-view chest x-ray initially in the Emergency Department and per radiology interpretation showed mild cardiomegaly with minimal vascular congestion, slight interstitial thickening versus edema, no lobular consolidations or alveolar edema noted. He also had a CT of the head that per radiology interpretation showed no significant change in the brain as compared to May 15, no other infarct, hemorrhage or mass. There was note of mild microischemic changes, periventricular white with mild paranasal sinus disease improved compared to May 15. HOSPITAL COURSE: Mr. Kinney was admitted as noted in his history of present illness for acute mental status change. He was seen in the Emergency Room and quite lethargic but he was oriented. Once he was admitted to the Floor shortly after, within about an hour he became fully awake and alert and was actually conversing and eating sandwiches. He was given IV fluids to correct his sodium which corrected well. He did have a physical therapy evaluation that showed he was very unsteady with a walker, however, on the date of discharge he was much improved. It was discussed at length with the patient about the use of his medications and polypharmacy and multiple episodes of being over sedated. He agreed to inpatient rehabilitation at [place], which he will be admitted to on this coming Saturday. PLAN: Mr. Pérez was discharged on 05/24/17 with instructions to have close clinical followup with his primary care physician, Dr. Umaña as scheduled. He was discharged to go to rehabilitation in [place] with arrangements for this coming Saturday. He was to take his home medications as directed with note of decrease in his MS Contin from 60 mg twice a day to 15 mg 3 times a day. He was told to stop using recreational drugs or any other drugs that were not prescribed by his doctor. The patient was discharged to his home health agency. He is to return to the hospital should he have any concern or change in his symptoms. DISCHARGE MEDICATIONS: No new medications were provided. Only medication regimen changed was morphine p.o. from 60 mg twice a day to 15 mg 3 times a day. All other medications to be resumed as previous to hospitalization. DISCHARGE DIET: [id number] calorie . ACTIVITY: Increase as tolerated utilizing a walker. CONDITION ON DISCHARGE: Stable and improved. [facility][id number] [facility]
== END 2017-05-24 14:00 | disposition home health service (06) ==
LOC: ER 14:47 → MS 18:00
PROVIDERS: ADMIT Nurse Practitioner Family; ATTEND Nurse Practitioner Family
DX: E87.1 Hypo-osmolality and hyponatremia (principal); R41.82 Altered mental status, unspecified; E83.42 Hypomagnesemia; M62.81 Muscle weakness (generalized); J44.9 Chronic obstructive pulmonary disease, unspecified; F17.210 Nicotine dependence, cigarettes, uncomplicated; G89.4 Chronic pain syndrome; M51.36 Other intervertebral disc degeneration, lumbar region; I12.9 Hypertensive chronic kidney disease with stage 1 through stage 4 chronic kidney disease, or unspecified chronic kidney disease; E11.22 Type 2 diabetes mellitus with diabetic chronic kidney disease; N18.9 Chronic kidney disease, unspecified; E86.0 Dehydration; G40.409 Other generalized epilepsy and epileptic syndromes, not intractable, without status epilepticus; F31.9 Bipolar disorder, unspecified; E78.5 Hyperlipidemia, unspecified; G25.81 Restless legs syndrome; Z91.14 Patient's other noncompliance with medication regimen; Z66 Do not resuscitate; Z79.891 Long term (current) use of opiate analgesic; Z79.84 Long term (current) use of oral hypoglycemic drugs; Z79.82 Long term (current) use of aspirin; Z79.899 Other long term (current) drug therapy; Z87.440 Personal history of urinary (tract) infections
CPT/HCPCS: 36415 ×4; 36416 ×5; 70450; 71010; 80053 ×2; 80301 ×2; 80320; 80329; 81001; 82550 ×2; 82553; 82948 ×5; 83735 ×2; 83880; 84436; 84443; 84484; 85025 ×2; 85610; 85730; 94640; 94762 ×2; 96365; 96366 ×2; 96367; 96372; 96375; 97116 ×2; 97162; 99284; G0378; G8978; G8979; J1815; J2310; J3411 ×2; J3475; J7030 ×3; J7611